=== PATIENT | female | born 1980 | race Caucasian/White ===

== ENCOUNTER → 2018-01-05 10:49 | Outpatient (CLI) | payer OTHER, SELFPAY ==
[2018-01-05 12:33] LABS: Absolute Lymphocyte Count 1.73 X10^3/ul (0.83-4.51); Basophil# 0.01 X10^3/uL; Basophil% 0.1 % (0-1); Eosinophil# 0.31 X10^3/uL; Eosinophils% 4.1 % (0-5); Hematocrit 44.1 % (37-47); Hemoglobin 15.6 g/dl (12.0-15.0); Lymphocyte # 1.73 X10^3/ul (4.0); Lymphocyte % 22.6 % (19-41); Mean Corp Hgb Conc 35.4 g/gl (32-36); Mean Corpuscular Hgb 34.7 pg (27.0-32.0); Mean Platelet Vol. 10.2 fl (6.2-12.0); Monocyte# 0.62 X10^3/uL; Monocyte% 8.1 % (0-10); Neutrophil # 4.95 X10^3/uL (2.7-7.7); Neutrophil % 64.8 % (47-70); Platelet Count 278 K/mm3 (150-450); RBC Distribution Width CV 12.7 % (11.6-14.6); RBC Distribution Width SD 46.3 fl (35.1-43.9); White Blood Count 7.6 K/mm3 (4.4-11.0)
[2018-01-05 12:40] LABS: POSITIVE COUNT NO; POSITIVE DIFFERENTIAL NO; POSITIVE MORPHOLOGY NO
[2018-01-05 12:47] LABS: ALB/GLOB Ratio 1.1 RATIO (0.9-2.4); AST(SGOT) 13 U/L (15-37); Alanine Aminotransfer ALT/SGPT 17 U/L (13-56); Albumin, Serum 3.7 g/dL (3.2-5.0); Alkaline Phosphatase 76 U/L (45-117); Anion Gap 4 (5-15); BUN 10 mg/dL (7-18); BUN/Creat Ratio 14.1 RATIO (10-20); Calcium,Total 8.8 mg/dL (8.5-10.1); Chloride 107 mmol/L (98-107); Creatinine, Serum 0.71 mg/dL (0.55-1.02); EST Glomerular Filtration Rate 97 mL/min (>60); Est Glom Filt Rate - Afr Amer 118 mL/min (>60); Globulin 3.5 g/dL (2.2-4.2); Glucose 80 mg/dL (74-106); Potassium 4.5 mmol/L (3.5-5.1); Protein, Total 7.2 g/dL (6.4-8.2); Sodium Level 137 mmol/L (136-145)
== END ==
LOC: MTLAB 10:51
PROVIDERS: Family Provider Internal Medicine; PCP Internal Medicine; Visit Provider Internal Medicine
DX: R10.9 Unspecified abdominal pain (principal)
CPT/HCPCS: 80053; 85025

== ENCOUNTER → 2018-01-25 09:23 | Outpatient (CLI) | payer OTHER, SELFPAY ==
--- NOTE | 2018-01-25 09:29 | RAD_ITS ---
STUDY: X-RAY - LEFT HAND REASON FOR EXAM: Bilateral hand pain. TECHNIQUE: 3 view(s) of the hand. COMPARISON: None. FINDINGS: Normal radiocarpal articulation. Normal distal radioulnar joint. There is a small cyst in the distal pole of the scaphoid. Normal carpal articulations Normal carpometacarpal articulation of the thumb. Normal second through fifth carpometacarpal joints. Normal metacarpi. Normal metacarpophalangeal joint of the thumb. Normal interphalangeal joint of the thumb. Normal proximal and distal phalanges of the thumb. Normal metacarpophalangeal joints of the second through fifth fingers. Normal proximal and distal interphalangeal joints of the second through fifth fingers. There is mild deformity of the ungual tuft of the fourth digit suggestive of remote injury. The soft tissue structures are unremarkable. RAD/Hand Min 3 Views IMPRESSION: Remote injury of the ungual tuft of the fourth digit. Small cyst in the scaphoid. Electronically Signed: Shay Martínez MD at 15:58 EDT Tel , Service support ,
--- NOTE | 2018-01-25 09:31 | RAD_ITS ---
STUDY: X-RAY - RIGHT HAND REASON FOR EXAM: Bilateral hand pain. TECHNIQUE: 3 view(s) of the hand. COMPARISON: None. FINDINGS: Normal radiocarpal articulation. Normal distal radioulnar joint. Normal visualized carpal bones. Normal carpal articulations Normal carpometacarpal articulation of the thumb. Normal second through fifth carpometacarpal joints. Normal metacarpi. Normal metacarpophalangeal joint of the thumb. Normal interphalangeal joint of the thumb. Normal proximal and distal phalanges of the thumb. Normal metacarpophalangeal joints of the second through fifth fingers. Normal proximal and distal interphalangeal joints of the second through fifth fingers. Normal phalanges of the second through fifth fingers. The soft tissue structures are unremarkable. RAD/Hand Min 3 Views IMPRESSION: Normal x-ray examination of the right hand. Electronically Signed: Shay Martínez MD at 15:58 EDT Tel , Service support ,
== END ==
LOC: HPRAD 09:27
PROVIDERS: Family Provider Internal Medicine; PCP Internal Medicine; Visit Provider Orthopaedic Surgery
DX: G56.03 Carpal tunnel syndrome, bilateral upper limbs (principal)
CPT/HCPCS: 73130

== ENCOUNTER 2018-02-07 12:30 | Outpatient (RCR) | payer OTHER, SELFPAY ==
--- NOTE | 2018-01-10 10:56 | HP.PTEVAL_ITS ---
Patient's Visit Information AIDA LEWIS is a 37 year old F referred to Physical Therapy by Michelle Mcghee MD with a diagnosis of RC disorder. Date of Evaluation: 01/10/18 Physical Therapist: Kaylah Menjivar - Visit Plan Frequency: 2x /Week Duration: 6 Weeks Plan: 2X/ week for 4 weeks for L shld AROM, PROM, RC and scapular strength, postural exercises with HEP and modalities PRN - Subjective Subjective: Pt reports that she has had pain in L shoulder for several years now (approx 3 years). No specific injury. It hurts to lift it up into abd motion. It hurts to lay on L shoulder. Pt is R handed. It hurts more with movement. No pain with just sitting. Pt went to [facility] who is her PCP. No x- rays or MRI at this point. No injections. She does a lot of sitting and typing at work. 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 Pt wylie have carpal tunnel and has a lot of N&T from that but no neck pain. She points to it hurting more on the lateral side of her shoulder. Lot of cracking and popping she hears. 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 Posture: R shoulder flexion 165 degrees, 155 abd, T6, WFL. L shoulder flexion 125 degrees, 105 abd, T12, WFL. c-spine AROM: flex 100%, Ext 75%, Rot B 100%, SB B 100%. UE MMT: R shld flex 4+/5 and L 4-/5, R shoulder abd 4+/5 and L 3+/5, R shld ER 4/5 and L 4-/5, R shld IR 4/5 and L 3+/5. PROM L shld: painful end feel on the L into abd and flexion. Pain at end range motion with IR and ER on the L. No real tenderness to palpation. Posture: sits with rounded shoulders and increasedround of thoracic spine. +HK on the L. -Empty can L - Goals Goal 1:: I HEP Goal Time Frame: 4-6 Weeks Goal 2:: Be able to lay on L shoulder without having pain Goal Time Frame: 4-6 Weeks Goal 3:: Increase L shoulder AROM to equal that of the R shoulder: (R shoulder flexion 165 degrees, 155 abd, T6, WFL and L shoulder flexion 125 degrees, 105 abd, T12, WFL) Goal Time Frame: 4-6 Weeks Goal 4:: Increase L shld strength to 4/5 all planes Goal Time Frame: 4-6 Weeks - Rehabilitation Potential Rehabilitation Potential: Good - Anticipated Interventions Patient/Client Instruction: Educate patient on: Condition, Plan of Care For the Purpose of:: To decrease pain, To decrease swelling/inflammation, To increase ROM, To improve nutrient delivery to tissue, To improve muscle performance and motor function, To improve ability to perform ADL's, To increase tolerance to activity/condition/position, To improve performance and independence with ADL's, To improve health of tissue, To increase flexibility/ ROM Therapeutic Exercise to Include: Strength training, Postural training, Flexibilty training, Passive ROM, Active ROM, Scapular Strength/Stabilization For the Purpose of:: To decrease pain, To increase ROM, To improve nutrient delivery to tissue, To improve muscle performance and motor function, To improve ability to perform ADL's, To increase tolerance to activity/condition/ position, To increase flexibility/ROM Manual Therapy Techniques to Include: Passive ROM For the Purpose of:: To increase flexibility/ROM IF ES: Yes Cryotherapy (ice pack, ice massage): Yes Ultrasound (thermal/non thermal): Yes For the Purpose of:: To decrease pain, To decrease swelling/inflammation, To increase ROM, To improve nutrient delivery to tissue Thank you for the opportunity to evaluate your patient. For Medicare and Medicare HMO plans, please review the plan of care and approve it. It will need to be FAXED BACK to us at [phone] for Medicare purposes. Please let me know if there are questions or concerns regarding this plan of care. Physician Signature: Date:
--- NOTE | 2018-02-07 13:01 | HP.PTDCSUM_ITS ---
HP - PT D/C Summary It has been my pleasure to treat AIDA LEWIS under orders from Michelle Mcghee MD, for the diagnosis of RC disorder for a total of 6 visit(s). Discharge Date: 02/07/18 Please see the following information for a summary of their discharge status. - Subjective Subjective: Pt reports that if she lifts her arm the wrong way then it hurts. She does that 1-2X/ day. She has been doing her exercises and will continue to do them at home. - Pain L shoulder Pain Intensity (Out of 10): 0 - Overall Improvement % Improvement: 75 - Objective Objective/Function: L SHLD AROM: L shoulder flexion 168, 158 abd, T8, ER is WFL ). L Shld MMT: flexion 4/5, abd 4/5, ER 4-/5, and IR 4/5 - Goals Goal 1:: I HEP Goal Progress: Goal Met Goal 2:: Be able to lay on L shoulder without having pain Goal Progress: Progressing Goal 3:: Increase L shoulder AROM to equal that of the R shoulder: (R shoulder flexion 165 degrees, 155 abd, T6, WFL and L shoulder flexion 125 degrees, 105 abd, T12, WFL) Goal Progress: Goal Met Goal 4:: Increase L shld strength to 4/5 all planes Goal Progress: Progressing - Plan Plan: DC PT to HEP. - D/C Information Discharge Comments: DC PT to HEP If there are questions or concerns regarding this patient's physical therapy, please feel free to call me at [phone]. Thank you for the referral of this patient. Sincerely, aKylah Menjivar
== END 2018-02-07 18:24 | disposition home or self-care (01) ==
LOC: PT 12:30
PROVIDERS: Family Provider Internal Medicine; PCP Internal Medicine; Visit Provider Internal Medicine
DX: M67.919 Unspecified disorder of synovium and tendon, unspecified shoulder (principal)
CPT/HCPCS: 97110; 97140; 97161; 97530

== ENCOUNTER → 2018-05-15 06:55 | Outpatient (CLI) | payer OTHER, SELFPAY ==
--- NOTE | 2018-05-15 13:17 | NEURO ---
NCS and/or EMG Patient Report Ordering Doctor: Debbi Chambers DATE OF SERVICE: 05/15/18 This is a bilateral upper extremity nerve conduction study and a right upper extremity EMG performed on this 38-year-old female with a history of pain and paresthesias in both hands worse on the right side affecting the first 4 digits of both hands. The patient is otherwise healthy. Previously approximately 3 months ago she did undergo corticosteroid injections of the carpal tunnel which she says has temporarily helped but feels that the symptoms are worsening again. Bilateral upper extremity sensory and motor nerve conduction studies are performed. The median motor and sensory distal latencies are moderately prolonged symmetrically. There is decreased amplitude of the motor amplitudes more so on the left side, and mild to moderate reduction of conduction velocities more so on the left side. The median F-wave latencies are mild to moderately prolonged bilaterally more so on the right side. Right upper extremity needle electromyography is performed. Muscles evaluated included the first dorsal interosseous, abductor pollicis brevis, brachioradialis, biceps, triceps and deltoid muscles. The abductor pollicis brevis muscle did demonstrate early recruitment with large motor units but pathologic spontaneous activity was absent. All other muscles demonstrated normal insertional activity with absence of pathologic spontaneous activity, and normal motor unit recruitment pattern as well as amplitude. Impression: Abnormal electrophysiologic study of the bilateral upper extremities consistent with moderate bilateral carpal tunnel syndrome relatively symmetric.
== END ==
PROVIDERS: Family Provider Internal Medicine; PCP Internal Medicine; Referring Provider Orthopaedic Surgery; Visit Provider Orthopaedic Surgery
DX: G56.03 Carpal tunnel syndrome, bilateral upper limbs (principal)
CPT/HCPCS: 95886; 95911

== ENCOUNTER → 2020-02-20 15:00 | Outpatient (CLI) | payer OTHER, SELFPAY ==
[2020-02-20 14:37] VITALS: BMI 29.7
[2020-02-20 17:03] LABS: Absolute Lymphocyte Count 2.45 X10^3/uL (0.83-4.51); Absolute Neutrophil Count 5.6 X10^3/uL (2.0-7.7); Basophil# 0.01 X10^3/uL; Basophil% 0.1 % (0-1); Eosinophil# 0.14 X10^3/uL; Eosinophils% 1.6 % (0-5); Hemoglobin 14.5 g/dL (12.0-15.0); Lymphocyte # 2.45 X10^3/ul (4.0); Lymphocyte % 27.9 % (19-41); Mean Corpuscular Hgb 34.7 pg (27.0-32.0); Mean Corpuscular Volume 105.3 fL (81-99); Mean Platelet Vol. 9.9 fl (6.2-12.0); Monocyte# 0.58 X10^3/uL; Monocyte% 6.6 % (0-10); NRBC Flagged by Analyzer 0 % (0-5); Neutrophil # 5.58 X10^3/uL (2.7-7.7); Neutrophil % 63.6 % (47-70); Platelet Count 285 K/mm3 (150-450); RBC Distribution Width CV 12.7 % (11.6-14.6); RBC Distribution Width SD 48.6 fl (35.1-43.9); Red Blood Count 4.18 M/mm3 (4.2-5.4); White Blood Count 8.8 K/mm3 (4.4-11.0)
[2020-02-20 17:24] LABS: ALB/GLOB Ratio 1.2 RATIO (0.9-2.4); AST(SGOT) 12 U/L (15-37); Alanine Aminotransfer ALT/SGPT 27 U/L (13-56); Albumin, Serum 3.9 g/dL (3.2-5.0); Alkaline Phosphatase 68 U/L (45-117); Anion Gap 7 (5-15); BUN 13 mg/dL (7-18); BUN/Creat Ratio 13.2 RATIO (10-20); Calcium,Total 8.8 mg/dL (8.5-10.1); Chloride 105 mmol/L (98-107); Cholesterol 238 mg/dL (200); Creatinine, Serum 0.99 mg/dL (0.55-1.02); EST Glomerular Filtration Rate 66 mL/min (>60); Est Glom Filt Rate - Afr Amer 80 mL/min (>60); Globulin 3.3 g/dL (2.2-4.2); Glucose 104 mg/dL (74-106); High Density Lipoprotein 67 mg/dL; Protein, Total 7.2 g/dL (6.4-8.2); Sodium Level 139 mmol/L (136-145); Triglycerides 132 mg/dL; Very Low Density Lipoprotein 26 mg/dL (5-40)
== END ==
LOC: BIMLAB 15:01
PROVIDERS: PCP Internal Medicine; Referring Provider Internal Medicine; Visit Provider Internal Medicine
DX: E78.5 Hyperlipidemia, unspecified (principal); K21.9 Gastro-esophageal reflux disease without esophagitis
CPT/HCPCS: 36415; 80053; 80061; 85025

== ENCOUNTER → 2020-05-04 11:50 | Outpatient (CLI) | payer OTHER, SELFPAY ==
[2020-02-20 14:37] VITALS: BMI 29.7
[2020-04-15 13:13] VITALS: BMI 29.7
--- NOTE | 2020-05-04 11:51 | BI_ITS ---
MAMMOGRAPHY - BILATERAL SCREENING REASON FOR EXAM: Female, 40 years old. Routine annual screening examination. PERTINENT HISTORY: Non-contributory. TECHNIQUE: Digital bilateral breast zulema (3D mammographic acquisition) in the CC and MLO projections. 2-D mediolateral oblique (MLO) and craniocaudad (CC) views of both breasts were obtained. CAD: Full Field Digital Mammography with Computer Added Detection was performed. COMPARISON: None. Baseline examination. FINDINGS: Breast Composition: There are scattered areas of fibroglandular density. There are no dominant masses or suspicious calcifications. No other significant abnormalities are identified. BI/SCREEN MAMM (CAD) W/ZULEMA BILAT IMPRESSION: Negative screening mammogram. Yearly followup mammogram recommended. (A) ASSESSMENT CATEGORY: BIRADS Category 1: Negative. A letter regarding these results will be sent to the patient by the facility within 30 days. Approximately 10% of breast cancers are not detected by mammography. A normal mammogram should not delay biopsy of a clinically suspicious abnormality. [id number] Electronically Signed: Arvind Moore, at 13:01 EDT , Service support ,
== END ==
PROVIDERS: PCP Internal Medicine; Referring Provider Internal Medicine; Visit Provider Internal Medicine
DX: Z12.31 Encounter for screening mammogram for malignant neoplasm of breast (principal)
CPT/HCPCS: 77063; 77067

== ENCOUNTER 2021-03-02 06:56 | Day surgery (SDC) | payer OTHER, SELFPAY ==
[2021-02-22 10:46] VITALS: BMI 29.7
--- NOTE | 2021-03-01 13:25 | PCM.HP.BLA ---
History and Physical Date of Admission: 03/02/21 Date of Service: 02/22/21 MR#:[id number]:[id number]: AIDA LEWIS [facility] #:[id number] Provider: KOBE Grace/Sex: 41/F [place] [place] Intake Vital Signs 02/22/21 10:46 BMI 29.7 Intake Visit Reasons: BILAT HANDS Allergies IV contrast Allergy (Severe, Uncoded 02/20/20 14:34) SOB narcotics Allergy (Severe, Uncoded 02/20/20 14:34) Vomiting [facility] Medical History (Updated 02/23/21 @ 15:57 by Gurmeet BULLOCK, KOBE) Asthma Carpal tunnel syndrome GERD (gastroesophageal reflux disease) Seasonal allergies Surgical History History of appendectomy History of hernia repair History of nasal septoplasty History of tonsillectomy Family History Father COPD (chronic obstructive pulmonary disease) Anxiety Asthma Mother Obesity Sister Asthma Diabetes Grandmother Hypertension Heart disease Grandfather Colon cancer Cancer prostate and lukemia Social History (Updated 10/27/20 @ 16:[address] Debbi Chambers, ) Smoking Status: Current every day smoker alcohol intake: current alcohol intake frequency: a few times a week Alcohol type: wine substance use type: does not use what type of physical activity do you participate in: other details: does yard work and house work HPI BILAT HANDS Surgical H&P: Yes Details: Parts of this documentation were recorded by a scribe, this documentation accurately reflects the service provided and the decisions made by me, KOBE Mays 02/22/21 1043. AIDA LEWIS is a 41 year old F here today for bilateral carpal tunnel. Patient had injections on 10/27/[address] Chambers which were helpful until the end of January. Patient notes that she has numbness and tingling. She has pain into her wrists and into her elbow. She has increased pain at night. She is able to shake her hand to get feeling. 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 Patient is not able to have surgery at this time. [place] [facility] [place] muscle weakness, Reports numbness and Reports tingling Skin/Breast Reports system reviewed and no additional complaints, except as documented Neuro Yes system reviewed and no additional complaints, except as documented, Yes numbness and Yes tingling Ortho Exam General General: Yes no acute distress Right Wrist/Hand Skin/Wound: No Swelling and No Ecchymosis Right Wrist: Yes Durken's Test, Tinel's and Phalen's; No Froment's Sensation: Radial: I, Ulnar: I and Median: D Left Wrist/Hand Skin/Wound: No Swelling, No Ecchymosis, Yes nail intact and Yes capillary refill normal Left Wrist: Yes Durken's Test, Yes Tinel's and Yes Phalen's; No Palpable Nodule, No Froment's and No tender to palpate carpometacarpal joint Sensation: Radial: I, Ulnar: I and Median: D Coding Level of Care Code Off vis,est,level 3 Diagnoses Bilateral carpal tunnel syndrome G56.03 Assessment and Plan Assessment and Plan (1) Bilateral carpal tunnel syndrome: Status: Acute Plan - KOBE Hoover: Patient presents to the office today with carpal tunnel syndrome. Patient has had carpal tunnel signs and symptoms for well over 3 years now. She has been receiving injections since 2018 and states she thinks she has had approximately 8 maybe 9 different injections. These helped her symptoms for approximately 2 to 3 months until she asked to have other ones. She has tried splints in the past as well as physical therapy. At this time we discussed that there is concern with multiple injections into the area due to the underlying flexor tendons and the possible damage these would occur. She states that she would like to have surgery but can take that much time off of work. 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 At this time patient states that if that is all she has to be off she really wants to have surgery as these have been bothering her for long time. Risks and benefits of the surgery were discussed with patient as well as the procedure itself. Questions were answered and consent was signed in office today. Patient was given antimicrobial soap to be used daily for 3 days prior and then the morning before her surgery. She will be contacted by our office surgery date as well as the surgery department for presurgery testing. She will notify our office with any questions or concerns in the meantime. This note was generated with [employer] dictation software. It may contain incorrect words, spelling, and punctuation that were not noted in checking the note before signing. 02/23/21 1559<Electronically signed by Gurmeet BULLOCK>Date Gurmeet BULLOCK I have re-examined the patient. There are no clinical changes since date of exam
[2021-03-02 07:20] LABS: Internal QC Validated? YES +Cl - CLEAR BKGD
[2021-03-02 07:21] LABS: Pregnancy, Urine Negative Negative
[2021-03-02 08:03] VITALS: BP 128/83; PULSE 72; RESP 14; TEMP 36.6; O2SAT 98; BMI 28.8
[2021-03-02] MEDS: Lactated Ringers 1,000 ML 100 ML IV (08:25)
[2021-03-02] MEDS: Cefazolin 2 GM in 0.9% Normal Saline 100 ML IV (08:34)
[2021-03-02] MEDS: Lidocaine 1% /Epi 1:100 (50ml) 50 ML VIAL (08:59)
--- NOTE | 2021-03-02 09:17 | PCM.OPRPT ---
Report of Operation Date of Procedure: 03/02/21 Description of Surgical Findings:: Preoperative diagnosis; left carpal tunnel syndrome Postoperative diagnosis; same Procedure: Left open carpal tunnel release Anesthesia: Local with MAC Tourniquet time; 12 minutes 250 mm Hg Complications: None Indication for procedure; This is a 41-year-old female with long-standing symptoms consistent with carpal tunnel syndrome the patient did have electrodiagnostic evidence of this and has failed conservative treatment. Risks benefits and alternatives were reviewed including risks of bleeding infection nerve artery tissue damage need for further surgery and continued pain and symptoms, hypersensitivity to scar and Pillar pain. Procedure; The patient was met in the preoperative holding area the operative extremity was identified by both patient and physician and was marked the patient was met by anesthesia and brought back to the operating room and transferred to the operating table in the supine position. Aanesthesia was started. A well-padded tourniquet was placed on the operative upper extremity. The patient was prepped and draped in the usual sterile fashion. A timeout was called to ensure the proper patient procedure and extremity were being contemplated. 0.5 percent Marcaine with epinephrine was injected into the incisional area. An Esmarch was used to exsanguinate the extremity. The tourniquet was inflated to 250 mmHg. A midline incision was made with a 15 blade scalpel between the thenar and hypothenar eminence. This was carried down through the skin and subcutaneous tissue. Jonh retractors were then used, a deep blade scalpel was used to make a deep incision in the palmar aponeurosis. The jonh retractors were then placed deep to this and the transverse carpal ligament was identified a perforation was made with a scalpel and a Littler scissors were used to complete the release of the transverse carpal ligament distally under direct visualization with the tips facing ulnarly until the perivascular fat was reached. Then turning our attention proximally using a tension slide technique the proximal extent of the transverse carpal ligament was released . There was noted to be hourglass configuration to the median nerve and hypertrophy of the transverse carpal ligament without other findings. The wound was thoroughly irrigated and was closed with 4-0 nylon vertical mattress stitches. Dressing was applied in the form of xeroform 4 x 4, web roll and an jer wrap. Tourniquet was let down there is no intraoperative complications patient tolerated the procedure well and was transferred to the PACU. All counts were correct.
--- NOTE | 2021-03-02 09:19 | DCINST_ITS ---
Discharge Instructions Dressing / Incision Call your doctor if you observe: Shortness of breath and Chest pain Additional Dressing/Incision Instructions:: Ice and elevate operative extremity next 72 hours. Keep dressing on clean and dry for 48 hours then may remove and allow warm soapy water to rinse over incision but do not submerge until sutures are out. Then apply bandaid over incision and change daily. encourage finger range of motion. Not lift more than 1/2 pound. Follow Up Care Please Follow Up With: Ford Villeda DO Test Results: Test results from this visit will be discussed in further detail a t your follow-up appointment, if applicable. Discharge Plan Admission Attending Provider: Ford Villeda Primary Care Provider: Michelle Mcghee Discharge Orders/Prescriptions Prescriptions: New oxycodone 5 mg tablet 5 - 10 mg PO Q6H PRN (Reason: pain) 7 Days Qty: 30 RF: 0 No Action alprazolam [Xanax] 0.25 mg tablet 0.25 mg PO BID-TID PRN (Reason: Anxiety) RF: 0 levonorgestrel [Mirena] 20 mcg/24 hr (5 years) intrauterine device 1 insert Intrauterine ONCE RF: 0 omeprazole 20 mg capsule,delayed release(DR/EC) 20 mg PO QDAY Qty: 90 RF: 3 Ventolin HFA 90 mcg/actuation HFA aerosol inhaler 2 puff INHALATION Q6H PRN (Reason: shortness of breath or wheezing) Qty: 6.7 RF: 1 atorvastatin 40 mg tablet 40 mg PO QDAY Qty: 90 RF: 3 Referrals / Follow Up: Michelle Mcghee MD [Primary Care Provider] - Disposition Disposition (needs filled in before D/C Order can be placed): Home, Self Care
[2021-03-02 09:22] VITALS: BP 118/71; BP 128/83; PULSE 93; RESP 18; TEMP 36.5; O2SAT 93
[2021-03-02 09:25] VITALS: BP 111/77; BP 128/83; PULSE 76; RESP 18; O2SAT 95
[2021-03-02 09:30] VITALS: BP 123/74; BP 128/83; PULSE 77; RESP 18; O2SAT 95
[2021-03-02 09:31] VITALS: BP 115/79; BP 128/83; PULSE 73; RESP 18; TEMP 36.1; O2SAT 95
[2021-03-02 10:11] VITALS: BP 128/83
== END 2021-03-02 10:12 ==
LOC: SDC 06:59 → AC 06:59
PROVIDERS: Anesthesiology; PCP Internal Medicine; Referring Provider Orthopaedic Surgery; Visit Provider Orthopaedic Surgery
PROC: (CPT 64721; principal; 2021-03-02 08:15)
DX: G56.02 Carpal tunnel syndrome, left upper limb (principal); K21.9 Gastro-esophageal reflux disease without esophagitis; J45.909 Unspecified asthma, uncomplicated; F17.200 Nicotine dependence, unspecified, uncomplicated
CPT/HCPCS: 01810; 64721; 81025; J7120; J2405

== ENCOUNTER 2021-06-29 09:06 | Day surgery (SDC) | payer OTHER, SELFPAY ==
[2021-06-29] VITALS (7 sets, daily range): BP systolic 80–127; BP diastolic 64–88; PULSE 67–77; RESP 14–16; TEMP 36.1–36.2; O2SAT 95–100; BMI 29.0
[2021-06-29 09:38] LABS: Internal QC Validated? YES +Cl - CLEAR BKGD; Pregnancy, Urine Negative Negative
[2021-06-29] MEDS: Cefazolin 2 GM in 0.9% Normal Saline 100 ML IV (10:18)
[2021-06-29] MEDS: Lidocaine 1% /Epi 1:100 (20ml) 20 ML Vial (10:36)
--- NOTE | 2021-06-29 10:50 | PCM.HP.BLA ---
History and Physical Date of Admission: 06/29/21 Date of Service: 06/09/21 MR#:[id number]: AIDA LEWISRep #:[id number]:1980 Provider:Dr. Ford Villeda DOAge/Sex: 41/F Location:[facility]:Signed Intake Intake Visit Reasons: RIGHT WRIST Allergies IV contrast Allergy (Severe, Uncoded 04/13/21 08:52) SOB narcotics Adverse Reaction (Severe, Uncoded 04/13/21 08:52) Vomiting PFSH Medical History Alcohol use Anxiety Asthma Carpal tunnel syndrome Gastric reflux GERD (gastroesophageal reflux disease) High cholesterol History of COVID-19 History of echocardiogram History of hiatal hernia History of irregular heartbeat History of stress test Migraine headache Seasonal allergies Smoker Surgical History (Updated 04/13/21 @ 08:59 by Linda Stephens) History of appendectomy History of carpal tunnel surgery of left wrist History of hernia repair History of nasal septoplasty History of tonsillectomy Family History Father COPD (chronic obstructive pulmonary disease) Anxiety Asthma Mother Obesity Sister Asthma Diabetes Grandmother Hypertension Heart disease Grandfather Colon cancer Cancer prostate and lukemia Social History (Updated 10/27/20 @ 16:[address] Debbi Chambers DO) Smoking Status: Current every day smoker tobacco type: cigarettes alcohol intake: current alcohol intake frequency: a few times a week Alcohol type: wine substance use type: does not use what type of physical activity do you participate in: other details: does yard work and house work HPI RIGHT WRIST Details: Parts of this documentation were recorded by a scribe, this documentation accurately reflects the service provided and the decisions made by me, Dr. Ford Villeda DO 06/09/21 0818. AIDA LEWIS is a 41 year old F here today for right wrist carpal tunnel syndrome. She wishes to discuss rescheduling her right carpal tunnel release. She continues to have numbness and tingling and pain of the 1st through 4th fingers. She states that most of her symptoms are in the 3rd finger and half of the 2nd and 4th fingers. SH ehas been using a wrist brace for over 2 years and she has had multiple carpal tunnel injection on the right wrist. She did have an EMG of the right arm about 3-4 years ago. 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 She has a lymphosis over the left anterior chest wall, and she has swelling of the abdomen. She just had testing and it is determined that she has some lymphatic leaking and possible blockages. She sees Dr. Carter at [facility] and he is an interventional radiologist. Ortho Exam General General: Yes no acute distress Neurologic: Yes alert Psychologic: Yes reasonable and appropriate Right Wrist/Hand Skin/Wound: Yes CDI, No Swelling and No Ecchymosis Right Wrist: Yes Durken's Test and Phalen's; No Tinel's WRIST: no atrophy, good wrist range of motion Left Wrist/Hand Skin/Wound: Yes healing, No Swelling, No Ecchymosis and No erythema Supplemental Info 05/15/2018 EMG b/l upper ext: Abnormal electrophysiologic study of the bilateral upper extremities consistent with moderate bilateral carpal tunnel syndrome relatively symmetric. Coding Level of Care Code Off vis,est,level 3 Diagnoses Right carpal tunnel syndrome G56.01 Assessment and Plan Assessment and Plan (1) Right carpal tunnel syndrome: Status: Acute Plan - Dr. Ford Villeda, DO: Educated that she would bennifit from carpal tunnel release. Reviewed the pre-operative plans with the patient. Risks and benefits of the procedure were fully explained, including but not limited to infection, neurovascular injury, continued pain, arthritis, stiffness, need for further surgery, re-injury, DVT, PE, general risks of anesthesia, and loss of limb or life. The patient understands all the risks and does wish to proceed with written consent for right carpal tunnel release. Patient wishes to proceed with surgery LUCIO. Educated that she will need to keep her incision clean and dry with a dressing in place for 2 weeks post op. Recommended consult with a DO to have lymphatic treatments for her lymphatic disorder. Follow up 2 weeks post op or sooner if pain, swelling, numbness or associated symptoms, or concerns develop. All questions answered. Patient in agreement of plan. 06/09/21 1203<Electronically signed by Ford Villeda DO>Date Ford Vega Signature:Date I have re-examined the patient. There are no clinical changes since date of exam
--- NOTE | 2021-06-29 10:50 | PCM.OPRPT ---
Report of Operation Date of Procedure: 06/29/21 Description of Surgical Findings:: Preoperative diagnosis; right carpal tunnel syndrome Postoperative diagnosis; same Procedure: Right open carpal tunnel release Anesthesia: Local with MAC Tourniquet time; 11 minutes 250 mm Hg Complications: None Indication for procedure; This is a 41-year-old female with long-standing symptoms consistent with carpal tunnel syndrome the patient did have electrodiagnostic evidence of this and has failed conservative treatment. Risks benefits and alternatives were reviewed including risks of bleeding infection nerve artery tissue damage need for further surgery and continued pain and symptoms, hypersensitivity to scar and Pillar pain. Procedure; The patient was met in the preoperative holding area the operative extremity was identified by both patient and physician and was marked the patient was met by anesthesia and brought back to the operating room and transferred to the operating table in the supine position. Aanesthesia was started. A well-padded tourniquet was placed on the operative upper extremity. The patient was prepped and draped in the usual sterile fashion. A timeout was called to ensure the proper patient procedure and extremity were being contemplated. 0.5 percent Marcaine with epinephrine was injected into the incisional area. An Esmarch was used to exsanguinate the extremity. The tourniquet was inflated to 250 mmHg. A midline incision was made with a 15 blade scalpel between the thenar and hypothenar eminence. This was carried down through the skin and subcutaneous tissue. Jonh retractors were then used, a deep blade scalpel was used to make a deep incision in the palmar aponeurosis. The jonh retractors were then placed deep to this and the transverse carpal ligament was identified a perforation was made with a scalpel and a Littler scissors were used to complete the release of the transverse carpal ligament distally under direct visualization with the tips facing ulnarly until the perivascular fat was reached. Then turning our attention proximally using a tension slide technique the proximal extent of the transverse carpal ligament was released . There was noted to be hourglass configuration to the median nerve and hypertrophy of the transverse carpal ligament without other findings. The wound was thoroughly irrigated and was closed with 4-0 nylon vertical mattress stitches. Dressing was applied in the form of xeroform 4 x 4, web roll and an jer wrap. Tourniquet was let down there is no intraoperative complications patient tolerated the procedure well and was transferred to the PACU. All counts were correct.
--- NOTE | 2021-06-29 10:52 | PCM.DC ---
Discharge Instructions Dressing / Incision Additional Dressing/Incision Instructions:: Ice and elevate operative extremity next 72 hours. Keep dressing on clean and dry for 48 hours then may remove and allow warm soapy water to rinse over incision but do not submerge until sutures are out. Then apply bandaid over incision and change daily. encourage finger range of motion. Not lift more than 1/2 pound. Minimize narcotic use only as needed and directed, may use OTC NSAID and Tylenol to supplement/substitute for pain control. Follow Up Care Please Follow Up With: Ford Villeda DO When: 2 weeks Test Results: Test results from this visit will be discussed in further detail at your follow-up appointment, if applicable. Discharge Plan Admission Attending Provider: Ford Villeda Primary Care Provider: Michelle Mcghee Discharge Orders/Prescriptions Prescriptions: New ibuprofen 600 mg tablet 600 mg PO TID Qty: 40 RF: 0 No Action alprazolam [Xanax] 0.25 mg tablet 0.25 mg PO BID-TID PRN (Reason: Anxiety) RF: 0 levonorgestrel [Mirena] 20 mcg/24 hr (5 years) intrauterine device 1 insert Intrauterine ONCE RF: 0 atorvastatin 40 mg tablet 40 mg PO QDAY RF: 0 omeprazole 20 mg capsule,delayed release(DR/EC) 20 mg PO QDAY RF: 0 Ventolin HFA 90 mcg/actuation HFA aerosol inhaler 2 puff INHALATION Q6H PRN (Reason: shortness of breath or wheezing) Qty: 6.7 RF: 1 Referrals / Follow Up: Michelle Mcghee MD [Primary Care Provider] - Disposition Disposition (needs filled in before D/C Order can be placed): Home, Self Care
== END 2021-06-29 12:08 | disposition home or self-care (01) ==
LOC: SDC 09:08 → AC 09:09
PROVIDERS: Anesthesiology; PCP Internal Medicine; Visit Provider Orthopaedic Surgery
PROC: (CPT 64721; principal; 2021-06-29 10:30)
DX: G56.01 Carpal tunnel syndrome, right upper limb (principal); E11.9 Type 2 diabetes mellitus without complications; E78.00 Pure hypercholesterolemia, unspecified; I10 Essential (primary) hypertension; J44.9 Chronic obstructive pulmonary disease, unspecified; K21.9 Gastro-esophageal reflux disease without esophagitis; F17.210 Nicotine dependence, cigarettes, uncomplicated; Z86.16 Personal history of COVID-19; Z85.038 Personal history of other malignant neoplasm of large intestine; Z88.5 Allergy status to narcotic agent; Z88.8 Allergy status to other drugs, medicaments and biological substances; Z90.49 Acquired absence of other specified parts of digestive tract
CPT/HCPCS: 01810; 64721; 81025; J7120; J2405

== ENCOUNTER 2021-09-14 12:16 | Emergency (ER) | payer OTHER, SELFPAY ==
[2021-09-14 12:17] VITALS: BP 136/94; PULSE 87; RESP 18; TEMP 35.7; O2SAT 100; BMI 28.3
[2021-09-14 12:19] VITALS: BP 136/94; PULSE 87; RESP 18; TEMP 35.7; O2SAT 100
[2021-09-14 14:54] LABS: Absolute Lymphocyte Count 2.14 X10^3/uL (0.83-4.51); Absolute Neutrophil Count 4.4 X10^3/uL (2.0-7.7); Basophil# 0.01 X10^3/uL; Basophil% 0.1 % (0-1); Eosinophil# 0.24 X10^3/uL; Eosinophils% 3.3 % (0-5); Hematocrit 49.5 % (37-47); Hemoglobin 17.1 g/dL (12.0-15.0); Lymphocyte # 2.14 X10^3/ul (0.83-4.51); Lymphocyte % 29.3 % (19-41); Mean Corp Hgb Conc 34.5 g/dL (32-36); Mean Corpuscular Volume 101.4 fL (81-99); Mean Platelet Vol. 9.4 fl (6.2-12.0); Monocyte# 0.48 X10^3/uL; Monocyte% 6.6 % (0-10); NRBC Flagged by Analyzer 0 % (0-5); Neutrophil # 4.41 X10^3/uL (2.7-7.7); Neutrophil % 60.3 % (47-70); Platelet Count 307 K/mm3 (150-450); RBC Distribution Width CV 12.5 % (11.6-14.6); RBC Distribution Width SD 47.3 fl (35.1-43.9); Red Blood Count 4.88 M/mm3 (4.2-5.4); White Blood Count 7.3 K/mm3 (4.4-11.0)
[2021-09-14 15:01] LABS: Internal QC Validated? YES +Cl - CLEAR BKGD; Pregnancy, Serum, hCG Quali. NEGATIVE Negative
[2021-09-14] MEDS: Ketorolac 15 MG/ML Vial IV (15:02)
[2021-09-14] MEDS: Dicyclomine 10 MG Capsule 20 MG PO (15:02)
[2021-09-14] MEDS: 0.9% Normal Saline 1,000 ML 1000 ML IV (15:02)
[2021-09-14] MEDS: Ondansetron 4 MG/2 ML Vial IV (15:02)
[2021-09-14] MEDS: fentaNYL 100 MCG/2 ML Ampul 50 MCG IV (15:03)
[2021-09-14 15:05] VITALS: BP 122/85; PULSE 69; RESP 16; O2SAT 98
[2021-09-14 15:10] LABS: ALB/GLOB Ratio 1.1 RATIO (0.9-2.4); AST(SGOT) 14 U/L (15-37); Alanine Aminotransfer ALT/SGPT 27 U/L (13-56); Albumin, Serum 3.9 g/dL (3.2-5.0); Alkaline Phosphatase 83 U/L (45-117); Anion Gap 3 (5-15); BUN 14 mg/dL (7-18); BUN/Creat Ratio 21.5 RATIO (10-20); Chloride 107 mmol/L (98-107); Creatinine, Serum 0.65 mg/dL (0.55-1.02); EST Glomerular Filtration Rate 106 mL/min (>60); Est Glom Filt Rate - Afr Amer 128 mL/min (>60); Estimated Creatinine Clearance 93.27 ml/min; Globulin 3.6 g/dL (2.2-4.2); Glucose 95 mg/dL (74-106); Lipase 57 U/L (73-393); Potassium 4.1 mmol/L (3.5-5.1); Protein, Total 7.5 g/dL (6.4-8.2); Sodium Level 137 mmol/L (136-145)
--- NOTE | 2021-09-14 15:38 | EDS_ITS ---
HPI HPI - GI History of Present Illness Chief Complaint: Abd Pain Informant: patient Narrative Narrative: Patient is a 41 year old female with history of intermittent abdominal pain thought to be secondary to abnormal lymph node drainage pr esenting with worsening abdominal pain. Patient states she had worsening swelling of her left supraclavicular area and abdominal distention and pain. It is diffuse and radiates to her bilateral flanks. She notes it hurts to take a deep breath because of the pressure in her stomach. She follows with the [facility]. She has been taking Motrin with severally for the pain is not had any today. She has been having flareups every 2 weeks for the past month but before that had not had any problems since June. Patient states this feels like her normal pain just more severe and now she cannot sleep. She denies associated nausea or vomiting. She had normal bowel movements. Denies any difficulty breathing or chest pain. No fever or chills. No other complaints at this time. PFSH PFSH Medical History Alcohol use Anxiety Asthma Carpal tunnel syndrome Gastric reflux GERD (gastroesophageal reflux disease) High cholesterol History of COVID-19 History of echocardiogram History of hiatal hernia History of irregular heartbeat History of stress test Migraine headache Seasonal allergies Smoker Home Medications alprazolam 0.25 mg tablet 0.25 mg PO BID-TID PRN 01/02/18 [History Last Taken 03/02/21 06:30 0.25 MG] levonorgestrel 20 mcg/24 hours (7 yrs) 52 mg intrauterine device 1 insert INTRAUTERINE ONCE 01/02/18 [History Last Taken Unknown] ibuprofen 600 mg PO TID #40 tab 06/29/21 [Rx Last Taken Unknown] atorvastatin 40 mg tablet 40 mg PO QDAY #90 tab 07/19/21 [Rx Last Taken Unknown] fluticasone propionate 50 mcg/actuation nasal spray,suspension 1 spray INTRANASAL DAILY #16 g 07/19/21 [Rx Last Taken Unknown] omeprazole 20 mg capsule,delayed release 20 mg PO QDAY #90 cap 07/19/21 [Rx Last Taken Unknown] albuterol sulfate 90 mcg/actuation aerosol inhaler 2 puff INHALATION Q6H PRN #8.5 g 07/22/21 [Rx Last Taken Unknown] dicyclomine 20 mg PO TID PRN #20 tab 09/14/21 [Rx Last Taken Unknown] Allergy/AdvReac Type Severity Reaction Status Date / Time IV contrast Allergy Severe SOB Uncoded 09/14/21 12:19 narcotics AdvReac Severe Vomiting Uncoded 09/14/21 12:19 Family History Father COPD (chronic obstructive pulmonary disease) Anxiety Asthma Mother Obesity Sister Asthma Diabetes Grandmother Hypertension Heart disease Grandfather Colon cancer Cancer prostate and lukemia Surgical History History of appendectomy History of carpal tunnel surgery of left wrist History of nasal septoplasty History of tonsillectomy Hx of inguinal hernia repair Social History Smoking Status: Current every day smoker tobacco type: cigarettes alcohol intake: current alcohol intake frequency: holidays/special occasions only Alcohol type: wine substance use type: does not use eating out: other details: twice a month what type of physical activity do you participate in: other details: does yard work and house work ROS ROS ED Constitutional Constitutional ED: Denies chills or fever(s) ENT ENT ED: Denies rhinorrhea Cardiovascular Cardiovascular: Denies chest pain or palpitations Respiratory/Chest Respiratory/Chest: Denies cough or dyspnea Gastrointestinal Gastrointestinal: Reports abdominal pain; Denies constipation, diarrhea, nausea or vomiting Genitourinary Genitourinary ED: Denies dysuria or hematuria Musculoskeletal Musculoskeletal: Reports back pain; Denies arthralgias or myalgias Integumentary Denies rash Neurologic Neurologic: Denies headache(s) or weakness Psychiatric Psychiatric: Denies depression EXAM Physical Exam Const Vital Signs: 09/14/21 12:17 09/14/21 12:19 09/14/21 15:05 Temperature 96.2 F L 96.2 F L Temperature Source Temporal Temporal Pulse Rate 87 87 69 Respiratory Rate 18 18 16 Blood Pressure 136/94 H 136/94 H 122/85 H Blood Pressure Mean 108 108 97 Pulse Ox 100 100 98 Oxygen Delivery Method Room Air Room Air Room Air Positive well nourished and well developed Constitutional Narrative: Patient sitting in the bed rocking back and forth General Appearance ED: well developed HEENT Reports moist mucous membranes normocephalic and atraumatic Eyes PERRL and EOMs intact bilaterally Neck supple Neck Narrative: Left-sided supraclavicular lymphadenopathy present Lymph Lymphatic: Negative for lymphedema Resp normal respiratory effort and clear to auscultation bilaterally Cardio regular rate, regular rhythm and no murmurs GI non-distended GI Narrative: No abdominal wall edema appreciated Inspection: Negative for abdominal distention Auscultation: normoactive bowel sounds Palpation: soft and tender other (Diffuse); Negative for guarding or rigid Back/Spine no CVA tenderness Extremity full ROM General Extremety ED: Negative for edema or tenderness General Extremity: Negative for edema Neuro no sensory deficits noted Sensorium / Orientation: alert, oriented to person, oriented to place and oriented to time Motor Exam: Negative for general weakness Psych mental status grossly normal and thought process normal Mood & Affect: anxious Skin General Skin Exam: Negative for jaundice Lesions: no lesions Rashes: no rashes MDM MDM MDM Narrative Medical decision making narrative: Patient is evaluated for worsening abdominal pain. It seems to be correlated with lymph drainage dysfunction for the patient. She appears nontoxic but uncomfortable. She is hemodynamically stable. Patient has diffuse abdominal pain that is nonspecific on exam. She does not have any peritoneal signs. Work-up including CBC, lactate, CMP and urine are obtained which are grossly unremarkable. Patient is given IV fluids, Zofran, fentanyl, Toradol and Bentyl. On reevaluation she feels much better. Patient does not want any opioids because a cause such severe nausea and vomiting. Patient will be discharged home with prescription for Bentyl. She will continue take NSAIDs. She will follow-up with her PCP. She is counseled return precautions. As her symptoms have improved and this is an acute on chronic issue I do not think repeat imaging is indicated. Lab Data Attestation: I reviewed the patient's lab results. Labs: Laboratory Results - last 24 hr 09/14/21 09/14/21 09/14/21 14:10 14:10 14:40 WBC 7.3 RBC 4.88 Hgb 17.1 H Hct 49.5 H MCV 101.4 H MCH 35.0 H MCHC 34.5 RDW Std Deviation 47.3 H RDW Coeff of Miguel Angel 12.5 Plt Count 307 MPV 9.4 Immature Gran % (Auto) 0.400 Neut % (Auto) 60.3 Lymph % (Auto) 29.3 Ellis % (Auto) 6.6 Eos % (Auto) 3.3 Baso % (Auto) 0.1 Absolute Neuts (auto) 4.4 Absolute Lymphs (auto) 2.14 Nucleated RBC % 0 Sodium 137 Potassium 4.1 Chloride 107 Carbon Dioxide 27.0 Anion Gap 3 L BUN 14 Creatinine 0.65 Estim Creat Clear Calc 93.27 Est GFR (MDRD) Af Amer 128 Est GFR (MDRD) Non-Af 106 BUN/Creatinine Ratio 21.5 H Glucose 95 Calcium 9.0 Total Bilirubin 0.40 AST 14 L ALT 27 Alkaline Phosphatase 83 Total Protein 7.5 Albumin 3.9 Globulin 3.6 Albumin/Globulin Ratio 1.1 Lipase 57 L Serum , Qual NEGATIVE Discharge Plan Triage Chief Complaint: Abd Pain ED Provider: Yany Babb Dx/Rx/DC Orders Clinical Impression: Abdominal pain Instructions: ED Abdominal Pain Unkn Cause Fem Prescriptions: New dicyclomine 20 mg tablet 20 mg PO TID PRN (Reason: abdominal discomfort) Qty: 20 RF: 0 No Action alprazolam [Xanax] 0.25 mg tablet 0.25 mg PO BID-TID PRN (Reason: Anxiety) RF: 0 levonorgestrel [Mirena] 20 mcg/24 hr (5 years) intrauterine device 1 insert Intrauterine ONCE RF: 0 omeprazole 20 mg capsule,delayed release(DR/EC) 20 mg PO QDAY Qty: 90 RF: 0 atorvastatin 40 mg tablet 40 mg PO QDAY Qty: 90 RF: 0 fluticasone propionate [Flonase Allergy Relief] 50 mcg/actuation spray,suspension 1 spray intranasal DAILY Qty: 16 RF: 0 ibuprofen 600 mg tablet 600 mg PO TID Qty: 40 RF: 0 albuterol sulfate 90 mcg/actuation HFA aerosol inhaler 2 puff inhalation Q6H PRN (Reason: shortness of breath or wheezing) Qty: 8.5 RF: 2 Primary Care Provider: Michelle Mcghee Referrals: Michelle Mcghee MD [Primary Care Provider] - Disposition Disposition: Home, Self Care
== END 2021-09-14 16:04 | disposition home or self-care (01) ==
PROVIDERS: Emergency Provider Emergency Medicine; PCP Internal Medicine; Visit Provider Emergency Medicine
DX: R10.9 Unspecified abdominal pain (principal); E78.00 Pure hypercholesterolemia, unspecified; F17.210 Nicotine dependence, cigarettes, uncomplicated; K21.9 Gastro-esophageal reflux disease without esophagitis; Z86.16 Personal history of COVID-19
CPT/HCPCS: 80053; 83605; 83690; 84703; 85025; 96361; 96374; 96375; 99283; J7030; A4216; J2405

== ENCOUNTER → 2022-09-01 | Outpatient (CLI) | payer OTHER, SELFPAY ==
[2022-09-01 17:07] LABS: Absolute Lymphocyte Count 2.43 X10^3/uL (0.83-4.51); Absolute Neutrophil Count 3.1 X10^3/uL (2.0-7.7); Basophil# 0.01 X10^3/uL; Basophil% 0.2 % (0-1); Eosinophils% 3.2 % (0-5); Hematocrit 42.8 % (37-47); Hemoglobin 14.5 g/dL (12.0-15.0); Lymphocyte # 2.43 X10^3/ul (0.83-4.51); Lymphocyte % 38.9 % (19-41); Mean Corp Hgb Conc 33.9 g/dL (32-36); Mean Corpuscular Hgb 34.7 pg (27.0-32.0); Mean Corpuscular Volume 102.4 fL (81-99); Mean Platelet Vol. 9.7 fl (6.2-12.0); Monocyte# 0.46 X10^3/uL; Monocyte% 7.4 % (0-10); NRBC Flagged by Analyzer 0 % (0-5); Neutrophil # 3.12 X10^3/uL (2.7-7.7); Platelet Count 305 K/mm3 (150-450); RBC Distribution Width SD 45.2 fl (35.1-43.9); Red Blood Count 4.18 M/mm3 (4.2-5.4); White Blood Count 6.2 K/mm3 (4.4-11.0)
[2022-09-01 17:30] LABS: ALB/GLOB Ratio 1.1 RATIO (0.9-2.4); AST(SGOT) 16 U/L (15-37); Alanine Aminotransfer ALT/SGPT 26 U/L (13-56); Albumin, Serum 3.7 g/dL (3.2-5.0); Alkaline Phosphatase 64 U/L (45-117); Anion Gap 6 (5-15); BUN 11 mg/dL (7-18); BUN/Creat Ratio 15.4 RATIO (10-20); Calcium,Total 8.8 mg/dL (8.5-10.1); Chloride 104 mmol/L (98-107); Creatinine, Serum 0.72 mg/dL (0.55-1.02); EST Glomerular Filtration Rate 94 mL/min (>60); Est Glom Filt Rate - Afr Amer 114 mL/min (>60); Globulin 3.4 g/dL (2.2-4.2); Glucose 85 mg/dL (74-106); Potassium 4.2 mmol/L (3.5-5.1); Protein, Total 7.1 g/dL (6.4-8.2); Sodium Level 137 mmol/L (136-145); T4 Free Direct 1.01 ng/dL (0.76-1.46); Thyroid Stim Hormone (TSH) 1.78 uIU/mL (0.358-3.74)
== END | disposition home or self-care (01) ==
LOC: BIMLAB 15:27
PROVIDERS: PCP Internal Medicine; Visit Provider Internal Medicine
DX: F41.1 Generalized anxiety disorder (principal); F41.0 Panic disorder [episodic paroxysmal anxiety]
CPT/HCPCS: 36415; 80053; 84439; 84443; 85025

== ENCOUNTER → 2022-11-16 | Outpatient (CLI) | payer OTHER, SELFPAY ==
--- NOTE | 2022-11-16 10:07 | BI_ITS ---
MAMMOGRAPHY - BILATERAL SCREENING REASON FOR EXAM: Female, 42 years old. Routine annual screening examination. PERTINENT HISTORY: Non-contributory. TECHNIQUE: Digital bilateral breast zulema (3D mammographic acquisition) in the CC and MLO projections. 2-D mediolateral oblique (MLO) and craniocaudad (CC) views of both breasts were obtained. CAD: Full Field Digital Mammography with Computer Added Detection was performed. COMPARISON: Comparison is made with prior study May 04, 2020. FINDINGS: Breast Composition: There are scattered areas of fibroglandular density. There are no dominant masses or suspicious calcifications. Stable benign-appearing bilateral axillary. No other significant abnormalities are identified. There has been no significant change since the prior study. BI/SCRN MAMM (CAD)W/ZULEMA BILAT IMPRESSION: Stable bilateral screening mammogram. Yearly follow-up mammogram recommended. (A) ASSESSMENT CATEGORY: BIRADS Category 2: Benign. A letter regarding these results will be sent to the patient by the facility within 30 days. Approximately 10% of breast cancers are not detected by mammography. A normal mammogram should not delay biopsy of a clinically suspicious abnormality. [id number] Electronically Signed: Arvind Moore MD at 13:49 EDT ,
== END | disposition home or self-care (01) ==
LOC: OPBI 10:03
PROVIDERS: PCP Internal Medicine
DX: Z12.31 Encounter for screening mammogram for malignant neoplasm of breast (principal)
CPT/HCPCS: 77063; 77067

== ENCOUNTER 2023-01-20 13:15 | Emergency (ER) | payer OTHER, SELFPAY ==
[2023-01-20 13:16] VITALS: BP 127/97; PULSE 75; RESP 16; TEMP 36.9; O2SAT 100; BMI 29.5
[2023-01-20 13:42] LABS: Absolute Lymphocyte Count 1.73 X10^3/uL (0.83-4.51); Absolute Neutrophil Count 3.4 X10^3/uL (2.0-7.7); Basophil# 0.01 X10^3/uL; Basophil% 0.2 % (0-1); Eosinophil# 0.17 X10^3/uL; Hematocrit 44.3 % (37-47); Hemoglobin 15.2 g/dL (12.0-15.0); Lymphocyte # 1.73 X10^3/ul (0.83-4.51); Lymphocyte % 30.1 % (19-41); Mean Corp Hgb Conc 34.3 g/dL (32-36); Mean Corpuscular Hgb 34.1 pg (27.0-32.0); Mean Corpuscular Volume 99.3 fL (81-99); Mean Platelet Vol. 9.2 fl (6.2-12.0); Monocyte# 0.46 X10^3/uL; NRBC Flagged by Analyzer 0 % (0-5); Neutrophil # 3.36 X10^3/uL (2.7-7.7); Neutrophil % 58.5 % (47-70); Platelet Count 251 K/mm3 (150-450); RBC Distribution Width CV 12.4 % (11.6-14.6); RBC Distribution Width SD 45.9 fl (35.1-43.9); Red Blood Count 4.46 M/mm3 (4.2-5.4); White Blood Count 5.7 K/mm3 (4.4-11.0)
[2023-01-20 13:42] LABS: Bacteria 0 SEEN /hpf (None Seen); Mucous, Urine 0 SEEN /hpf (<or=2+); Red Blood Cells-Urine 0 SEEN /hpf (0-5); Squamous Epithelial Cells - UA 0 SEEN /hpf (5-10); White Blood Cells 0 SEEN /hpf (0-5)
[2023-01-20 13:45] LABS: Color, Urine Yellow (Yellow); Glucose, Dipstick Normal (Normal); Ketone-Dipstick Negative (Negative); Leukocyte Esterase-Dipstick Negative /ul (Negative); Nitrite-Dipstick Negative (Negative); Occult Blood-Urine Negative /ul (Negative); Protein-Dipstick Negative (Negative); Urine Bilirubin Dipstick Negative (Negative); Urine Clarity Clear (Clear); Urine Urobilinogen Normal (Normal)
[2023-01-20 13:53] LABS: Internal QC Validated? YES +Cl - CLEAR BKGD; Pregnancy, Serum, hCG Quali. NEGATIVE Negative
[2023-01-20 14:28] LABS: ALB/GLOB Ratio 1.2 RATIO (0.9-2.4); AST(SGOT) 20 U/L (15-37); Alanine Aminotransfer ALT/SGPT 22 U/L (13-56); Albumin, Serum 3.8 g/dL (3.2-5.0); Alkaline Phosphatase 60 U/L (45-117); Anion Gap 7 (5-15); BUN 12 mg/dL (7-18); Chloride 105 mmol/L (98-107); EST Glomerular Filtration Rate 83 mL/min (>60); Est Glom Filt Rate - Afr Amer 100 mL/min (>60); Estimated Creatinine Clearance 75.01 ml/min; Globulin 3.2 g/dL (2.2-4.2); Glucose 92 mg/dL (74-106); Potassium 4.3 mmol/L (3.5-5.1); Sodium Level 137 mmol/L (136-145)
--- NOTE | 2023-01-20 15:00 | ED.VIS.GI ---
HPI HPI - GI History of Present Illness Chief Complaint: Abd Pain Informant: patient Abdominal Pain/Flank Pain Onset: Today Context: Sudden Onset Timing: Continuous Quality: Aching Location: Diffuse Worsened by: Nothing Relieved by: - (Certain positions) Nausea/Vomiting/Emesis GI Symptom: Negative for Nausea or Vomiting Diarrhea/Melena/Hematochezia GI Symptom: Negative for Diarrhea, Melena or Hematochezia Associated Symptoms Associated Symptoms: Negative for Dysuria, Frequency or Hematuria Narrative Narrative: Patient presents with abdominal pain that began today. Patient states it began rather suddenly. Patient states it has been constant. Patient describes it as aching. Patient states her pain is diffuse across her abdomen. Patient states it is somewhat better in certain positions. Patient states nothing makes it worse. Patient denies any nausea or vomiting. Patient denies any diarrhea. Patient denies any urinary complaints. 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 Patient states this feels similar to that. Patient states she has been following with [facility] for this. PFSH PFSH Medical History Acute back pain Alcohol use Anxiety Asthma Asthmatic bronchitis with exacerbation Carpal tunnel syndrome Gastric reflux Generalized anxiety disorder with panic attacks GERD (gastroesophageal reflux disease) High cholesterol History of COVID-19 History of echocardiogram History of hiatal hernia History of irregular heartbeat History of stress test Migraine headache Seasonal allergies Smoker Home Medications alprazolam 0.25 mg tablet (Xanax) 0.25 mg PO BID-TID PRN Anxiety 01/02/18 [History Last Taken 03/02/21 06:30 0.25 MG] levonorgestrel 21 mcg/24 hours (8 yrs) 52 mg intrauterine device (Mirena) 1 insert intrauterine ONCE bc 01/02/18 [History Last Taken Unknown] atorvastatin 40 mg tablet 40 mg PO QDAY cholesterol #90 tabs 07/19/21 [Rx Last Taken Unknown] fluticasone propionate 50 mcg/actuation nasal spray,suspension (Flonase Allergy Relief) 1 spray intranasal DAILY #16 grams 07/19/21 [Rx Last Taken Unknown] hydroxyzine HCl 25 mg tablet 25 mg PO TID PRN anxiety #90 tabs 12/05/22 [Rx Last Taken Unknown] albuterol sulfate 90 mcg/actuation aerosol inhaler 2 puff inhalation Q6H PRN shortness of breath or wheezing #8.5 grams 12/19/22 [Rx Last Taken Unknown] omeprazole 20 mg capsule,delayed release 20 mg PO QDAY GERD #90 caps 12/19/22 [Rx Last Taken Unknown] sertraline 50 mg tablet (Zoloft) 50 mg PO DAILY #90 tabs 12/19/22 [Rx Last Taken Unknown] meloxicam 15 mg tablet 15 mg PO DAILY PRN pain #20 tabs 01/20/23 [Rx Last Taken Unknown] Allergy/AdvReac Type Severity Reaction Status Date / Time Iodinated Contrast Media Allergy Shortness Verified 01/20/23 13:19 of breath Opioids - Morphine Analogues AdvReac Severe Vomiting Verified 01/20/23 13:19 [narcotics] Family History Father COPD (chronic obstructive pulmonary disease) Anxiety Asthma Mother Obesity Sister Asthma Diabetes Grandmother Hypertension Heart disease Grandfather Colon cancer Cancer prostate and lukemia Surgical History History of appendectomy History of carpal tunnel surgery of left wrist History of nasal septoplasty History of tonsillectomy Hx of inguinal hernia repair Social History Smoking Status: Current every day smoker tobacco type: cigarettes alcohol intake: current alcohol intake frequency: holidays/special occasions only Alcohol type: wine substance use type: does not use eating out: other details: twice a month what type of physical activity do you participate in: other details: does yard work and house work ROS ROS ED Constitutional Constitutional ED: Denies chills or fever(s) Eyes Eyes: Denies blurry vision or change in vision ENT ENT ED: Denies rhinorrhea or sore throat Cardiovascular Cardiovascular: Denies chest pain or palpitations Respiratory/Chest Respiratory/Chest: Denies cough or dyspnea Gastrointestinal Gastrointestinal: Reports abdominal pain; Denies nausea or vomiting Genitourinary Genitourinary ED: Denies dysuria or hematuria Musculoskeletal Musculoskeletal: Reports back pain; Denies neck pain Integumentary Denies abscess or rash Neurologic Neurologic: Denies headache(s) or weakness Allergic/Immunologic Allergic/Immunologic ED: Denies mouth swelling or urticaria EXAM Physical Exam Const Vital Signs: 01/20/23 13:16 Temperature 98.4 F Temperature Source Temporal Pulse Rate 75 Respiratory Rate 16 Blood Pressure 127/97 H Blood Pressure Mean 107 Pulse Ox 100 Oxygen Delivery Method Room Air Positive well nourished and well developed General Appearance ED: well developed HEENT Reports moist mucous membranes Neck supple and no JVD Resp normal respiratory effort and clear to auscultation bilaterally Cardio regular rate, regular rhythm and no murmurs GI normal to inspection, nondistended, normoactive bowel sounds Palpation: soft and tender epigastric, LLQ, RLQ, LUQ, RUQ, periumbilical and suprapubic; Negative for guarding or rebound tenderness present Extremity normal to inspection General Extremety ED: Negative for edema or tenderness General Extremity: Negative for edema Neuro oriented x3, CN's II-XII intact bilaterally and no sensory deficits noted Sensorium / Orientation: alert Motor Exam: strength 5/5 throughout Psych mental status grossly normal Skin no rashes or lesions noted MDM MDM MDM Narrative Medical decision making narrative: Differential diagnosis includes bowel obstruction, perforation, gastric ulcer, cholecystitis, cholelithiasis, hepatitis, pancreatitis, urinary tract infection, and pyelonephritis. CBC will be obtained to assess for leukocytosis and anemia. Comprehensive metabolic profile will be obtained to assess for hepatic function, renal function, and electrolyte abnormality. Lipase will be obtained to assess for pancreatitis. Urinalysis will be obtained to assess for urinary tract infection and hematuria. Serum hCG will be obtained to assess for . Lab Data Attestation: I reviewed the patient's lab results. Lab results narrative: CBC was reviewed and was within normal limits. Comprehensive metabolic profile was reviewed and was within normal limits. Urinalysis was reviewed. There is no evidence of urinary tract infection. Serum hCG was reviewed and was negative. Lipase was reviewed and was normal at 16. Labs: Laboratory Results - last 24 hr 01/20/23 01/20/23 01/20/23 13:25 13:30 13:30 WBC 5.7 RBC 4.46 Hgb 15.2 H Hct 44.3 MCV 99.3 H MCH 34.1 H MCHC 34.3 RDW Std Deviation 45.9 H RDW Coeff of Miguel Angel 12.4 Plt Count 251 MPV 9.2 Immature Gran % (Auto) 0.200 Neut % (Auto) 58.5 Lymph % (Auto) 30.1 Hawkins % (Auto) 8.0 Eos % (Auto) 3.0 Baso % (Auto) 0.2 Absolute Neuts (auto) 3.4 Absolute Lymphs (auto) 1.73 Nucleated RBC % 0 Sodium 137 Potassium 4.3 Chloride 105 Carbon Dioxide 25.0 Anion Gap 7 BUN 12 Creatinine 0.80 Estim Creat Clear Calc 75.01 Est GFR (MDRD) Af Amer 100 Est GFR (MDRD) Non-Af 83 BUN/Creatinine Ratio 15.0 Glucose 92 Calcium 9.0 Total Bilirubin 0.40 AST 20 ALT 22 Alkaline Phosphatase 60 Total Protein 7.0 Albumin 3.8 Globulin 3.2 Albumin/Globulin Ratio 1.2 Lipase Serum , Qual Urine Color Yellow Urine Clarity Clear Urine pH 6.0 Ur Specific [place] 1.020 Urine Protein Negative Urine Glucose (UA) Normal Urine Ketones Negative Urine Occult Blood Negative Urine Nitrite Negative Urine Bilirubin Negative Urine Urobilinogen Normal Ur Leukocyte Esterase Negative Urine RBC 0 SEEN Urine WBC 0 SEEN Ur Squamous Epith Cells 0 SEEN Urine Bacteria 0 SEEN Urine Mucus 0 SEEN 01/20/23 01/20/23 13:30 13:30 WBC RBC Hgb Hct MCV MCH MCHC RDW Std Deviation RDW Coeff of Miguel Angel Plt Count MPV Immature Gran % (Auto) Neut % (Auto) Lymph % (Auto) Hawkins % (Auto) Eos % (Auto) Baso % (Auto) Absolute Neuts (auto) Absolute Lymphs (auto) Nucleated RBC % Sodium Potassium Chloride Carbon Dioxide Anion Gap BUN Creatinine Estim Creat Clear Calc Est GFR (MDRD) Af Amer Est GFR (MDRD) Non-Af BUN/Creatinine Ratio Glucose Calcium Total Bilirubin AST ALT Alkaline Phosphatase Total Protein Albumin Globulin Albumin/Globulin Ratio Lipase 16 Serum , Qual NEGATIVE Urine Color Urine Clarity Urine pH Ur Specific [place] Urine Protein Urine Glucose (UA) Urine Ketones Urine Occult Blood Urine Nitrite Urine Bilirubin Urine Urobilinogen Ur Leukocyte Esterase Urine RBC Urine WBC Ur Squamous Epith Cells Urine Bacteria Urine Mucus Treatment and Re-Evaluation :: Patient was given IV fluids, Toradol, and Zofran. Patient was feeling better on reevaluation. Patient was advised of her findings. Patient was given a prescription for meloxicam. Patient was instructed to follow-up with her primary care physician in 5 to 7 days for reevaluation. Patient understood and was agreeable with the plan. All questions were answered. Discharge Plan Triage Chief Complaint: Abd Pain ED Provider: Schwiger,Orestes Dx/Rx/DC Orders Clinical Impression: Abdominal pain Instructions: ED Abdominal Pain Unkn Cause Fem Prescriptions: New meloxicam 15 mg tablet 15 mg PO DAILY PRN (Reason: pain) Qty: 20 0RF Discontinued ibuprofen 600 mg tablet 600 mg PO TID PRN Rx Instructions: Do not take in conjunction with other NSAID. Tylenol is okay No Action alprazolam [Xanax] 0.25 mg tablet 0.25 mg PO BID-TID PRN (Reason: Anxiety) levonorgestrel [Mirena] 20 mcg/24 hr (5 years) intrauterine device 1 insert Intrauterine ONCE atorvastatin 40 mg tablet 40 mg PO QDAY Qty: 90 0RF fluticasone propionate [Flonase Allergy Relief] 50 mcg/actuation spray,suspension 1 spray intranasal DAILY Qty: 16 0RF Rx Instructions: administer into each nostril hydroxyzine HCl 25 mg tablet 25 mg PO TID PRN (Reason: anxiety) Qty: 90 3RF albuterol sulfate 90 mcg/actuation HFA aerosol inhaler 2 puff inhalation Q6H PRN (Reason: shortness of breath or wheezing) Qty: 8.5 2RF omeprazole 20 mg capsule,delayed release(DR/EC) 20 mg PO QDAY Qty: 90 3RF sertraline [Zoloft] 50 mg tablet 50 mg PO DAILY Qty: 90 2RF Primary Care Provider: Michelle Mcghee Referrals: Michelle Mcghee MD [Primary Care Provider] - 5-7 Days Activity Restrictions/Additional Instructions: Do not take ibuprofen with the meloxicam. Disposition Disposition: Home, Self Care
[2023-01-20] MEDS: Ketorolac 15 MG/ML Vial IV (15:14)
[2023-01-20] MEDS: Ondansetron 4 MG/2 ML Vial IV (15:14)
[2023-01-20] MEDS: 0.9% Normal Saline 1,000 ML 1000 ML IV (15:14)
[2023-01-20 15:41] LABS: Lipase 16 U/L (13-75)
== END 2023-01-20 17:17 | disposition home or self-care (01) ==
PROVIDERS: Emergency Provider Emergency Medicine; PCP Internal Medicine; Visit Provider Emergency Medicine
DX: R10.9 Unspecified abdominal pain (principal); E78.00 Pure hypercholesterolemia, unspecified; F17.210 Nicotine dependence, cigarettes, uncomplicated; F41.9 Anxiety disorder, unspecified; Z79.899 Other long term (current) drug therapy; J45.909 Unspecified asthma, uncomplicated; Z79.51 Long term (current) use of inhaled steroids; K21.9 Gastro-esophageal reflux disease without esophagitis; Z90.49 Acquired absence of other specified parts of digestive tract
CPT/HCPCS: 80053; 81001; 83690; 84703; 85025; 99283; J7030; A4216; J2405

== ENCOUNTER → 2023-01-26 | Outpatient (CLI) | payer OTHER, SELFPAY ==
--- NOTE | 2023-01-26 13:50 | RAD_ITS ---
STUDY: X-RAY - LUMBAR SPINE REASON FOR EXAM: Female, 43 years old. Chronic Back pain TECHNIQUE: 5 view(s) of the lumbar spine were obtained. COMPARISON: None FINDINGS: Normal lumbar lordosis. There is no substantial scoliosis. There is a normal alignment of the vertebrae. Normal vertebral bodies. Normal disc space heights. Minor anterior endplate spurring at L4 IUD noted within the pelvis in the midline most likely within the uterus. RAD/L/S Spine Min 4 Views IMPRESSION: Early spondylotic change. No acute fracture or other significant bony pathology. Electronically Signed: Cruz Santiago MD at 20:16 EDT ,
[2023-01-26 15:48] LABS: Cholesterol 276 mg/dL (200); High Density Lipoprotein 99 mg/dL; Triglycerides 95 mg/dL; Very Low Density Lipoprotein 19 mg/dL (5-40)
== END | disposition home or self-care (01) ==
LOC: BIMLAB 13:22 → RAD 13:44
PROVIDERS: PCP Internal Medicine; Referring Provider Internal Medicine; Visit Provider Internal Medicine
DX: M54.9 Dorsalgia, unspecified (principal); G89.29 Other chronic pain; E78.5 Hyperlipidemia, unspecified
CPT/HCPCS: 36415; 72110; 80061

== ENCOUNTER 2023-09-12 08:52 | Emergency (ER) | payer OTHER, SELFPAY ==
[2023-09-12 08:53] VITALS: BP 130/90; PULSE 75; RESP 14; TEMP 36.6; O2SAT 98; BMI 29.7
[2023-09-12 09:32] VITALS: BP 132/91; PULSE 67; RESP 16; O2SAT 98
--- NOTE | 2023-09-12 09:33 | EDS_ITS ---
HPI History of Present Illness Chief Complaint: Dizziness Informant: patient Onset/Context/Timing Onset: Today (2-3 hours ago) Context: Sudden Onset Timing: Continuous Quality: Like I am spinning Location: Head Current Severity: Moderate Maximum Severity: Severe Worsened by: Any head movement Relieved by: Remaining still Associated Symptoms Associated Symptoms: Nausea, otherwise none Narrative Narrative: Patient had acute onset of vertigo upon lifting her head off of the pillow when she woke up this morning, worse when she got up out of bed, worse when she turns her head or moves. Denies any numbness, tingling, weakness in extremities, trouble speaking, headache, earache, tinnitus. Never had this before. She had COVID about 3 weeks ago, did not have ear symptoms with it or an ear infection. No recent head trauma. No fevers or chills this morning or other acute symptoms. She has not vomited but feels like she is going to. PFSH PFSH Medical History Acute back pain Alcohol use Anxiety Asthma Asthmatic bronchitis with exacerbation Carpal tunnel syndrome Chronic back pain Gastric reflux Generalized anxiety disorder with panic attacks GERD (gastroesophageal reflux disease) High cholesterol History of COVID-19 History of echocardiogram History of hiatal hernia History of irregular heartbeat History of stress test Migraine headache Seasonal allergies Smoker Home Medications alprazolam 0.25 mg tablet (Xanax) 0.25 mg PO BID-TID PRN Anxiety 01/02/18 [History Last Taken 03/02/21 06:30 0.25 MG] levonorgestrel 21 mcg/24 hours (8 yrs) 52 mg intrauterine device (Mirena) 1 insert intrauterine ONCE bc 01/02/18 [History Last Taken Unknown] fluticasone propionate 50 mcg/actuation nasal spray,suspension (Flonase Allergy Relief) 1 spray intranasal DAILY #16 grams 07/19/21 [Rx Last Taken Unknown] hydroxyzine HCl 25 mg tablet 25 mg PO TID PRN anxiety #90 tabs 12/05/22 [Rx Last Taken Unknown] albuterol sulfate 90 mcg/actuation aerosol inhaler 2 puff inhalation Q6H PRN shortness of breath or wheezing #8.5 grams 12/19/22 [Rx Last Taken Unknown] omeprazole 20 mg capsule,delayed release 20 mg PO QDAY GERD #90 caps 12/19/22 [Rx Last Taken Unknown] sertraline 50 mg tablet (Zoloft) 50 mg PO DAILY #90 tabs 12/19/22 [Rx Last Taken Unknown] meloxicam 15 mg tablet 15 mg PO DAILY PRN pain #20 tabs 01/20/23 [Rx Last Taken Unknown] atorvastatin 40 mg tablet 40 mg PO QDAY cholesterol #90 tabs 01/27/23 [Rx Last Taken Unknown] lorazepam 0.5 mg tablet 0.5 mg PO TID PRN dizziness or vertigo #10 tabs 09/12/23 [Rx Last Taken Unknown] meclizine 25 mg tablet 25 mg PO Q8H PRN PRN Dizziness #20 tabs 09/12/23 [Rx Last Taken Unknown] Allergy/AdvReac Type Severity Reaction Status Date / Time Iodinated Contrast Media Allergy Shortness Verified 09/12/23 08:53 of breath Opioids - Morphine Analogues AdvReac Severe Vomiting Verified 09/12/23 08:53 [narcotics] Family History Father COPD (chronic obstructive pulmonary disease) Anxiety Asthma Mother Obesity Sister Asthma Diabetes Grandmother Hypertension Heart disease Grandfather Colon cancer Cancer prostate and lukemia Surgical History History of appendectomy History of carpal tunnel surgery of left wrist History of nasal septoplasty History of tonsillectomy Hx of inguinal hernia repair Social History Smoking Status: Current every day smoker tobacco type: cigarettes alcohol intake: current alcohol intake frequency: holidays/special occasions only Alcohol type: wine substance use type: does not use eating out: other details: twice a month what type of physical activity do you participate in: other details: does yard work and house work ROS ROS ED Constitutional Constitutional ED: Denies chills or fever(s) Eyes Eyes: Denies change in vision or diplopia ENT ENT ED: Reports vertigo; Denies ear discharge, ear pain, rhinorrhea or sore throat Cardiovascular Cardiovascular: Denies chest pain or palpitations Respiratory/Chest Respiratory/Chest: Denies cough or dyspnea Gastrointestinal Gastrointestinal: Reports nausea; Denies abdominal pain, diarrhea or vomiting Genitourinary Genitourinary ED: Denies dysuria or hematuria Musculoskeletal Musculoskeletal: Denies back pain or neck pain Integumentary Denies abscess or rash Neurologic Neurologic: Denies headache(s), paresthesias or weakness Psychiatric Psychiatric: Denies anxiety or suicidal thoughts EXAM Physical Exam Const Vital Signs: 09/12/23 08:53 09/12/23 09:32 09/12/23 09:32 Temperature 98 F Temperature Source Temporal Pulse Rate 75 67 Respiratory Rate 14 16 Respiratory Effort Normal Non-Labored Respiratory Pattern Normal Blood Pressure 130/90 H 132/91 H Blood Pressure Mean 103 104 Pulse Ox 98 98 Oxygen Delivery Method Room Air Room Air 09/12/23 10:41 Temperature Temperature Source Pulse Rate 72 Respiratory Rate 14 Respiratory Effort Respiratory Pattern Blood Pressure 116/81 H Blood Pressure Mean 92 Pulse Ox 94 Oxygen Delivery Method Room Air Positive well nourished and well developed General Appearance ED: well developed and NAD HEENT Reports TM's clear and moist mucous membranes HEENT Narrative: EAC normal bilaterally. normocephalic and atraumatic Tympanic Membrane ED: Yes TM's clear Eyes PERRL and EOMs intact bilaterally Eyes Narrative: Patient has what appears to be nonfatigable horizontal nystagmus to the left, it is less prominent to the right, there is no vertical or rotatory nystagmus. Neck full ROM and supple Resp normal respiratory effort and clear to auscultation bilaterally Cardio regular rate, regular rhythm and no murmurs GI non-tender and non-distended Auscultation: normoactive bowel sounds Palpation: soft Back/Spine no CVA tenderness General Back: other FROM Extremity normal to inspection General Extremety ED: Negative for edema, pulses abnormal or tenderness General Extremity: Negative for edema or pulses abnormal Neuro oriented x3, CN's II-XII intact bilaterally and no sensory deficits noted Neuro Narrative: Normal iesusq-hm-allu and pbon-ba-gchp bilaterally. Normal speech. NIHSS 0. Patient has an abnormal jolt test. Sensorium / Orientation: awake and alert Motor Exam: strength 5/5 throughout Psych mental status grossly normal Skin no rashes or lesions noted and no wounds MDM MDM MDM Narrative Medical decision making narrative: Patient very symptomatic with a normal blood pressure not wanting to move her he ad due to symptoms. With an abnormal jolt test on the history, this is all very consistent with peripheral vertigo and I do not think she needs any advanced imaging of the brain although was considered and discussed with the patient. Also do not think that blood tests are going to help. This is clearly vertigo. She was fairly symptomatic especially with jolt testing. She was given oral Zofran, Ativan, meclizine and observed. She is not able to tolerate Lamar maneuver or Milford-Hallpike, nor did she want to try when she was feeling better understandably. Differential includes labyrinthitis as well as BPPV, this is not likely to be central in etiology and not likely to be an intracranial mass. Patient feeling much better after the medications. Will prescribe her meclizine and some Ativan to use only if the symptoms get more severe and she needs it, she is comfortable with that plan and outpatient follow-up advised. Discharge Plan Triage Chief Complaint: Dizziness ED Provider: James Cortes Dx/Rx/DC Orders Clinical Impression: Peripheral vertigo, unspecified Instructions: ED BPV Vertigo, ED Labyrinthitis Prescriptions: New meclizine [meclizine] 25 mg tablet 25 mg PO Q8H PRN PRN (Reason: Dizziness) Qty: 20 0RF lorazepam [lorazepam] 0.5 mg tablet 0.5 mg PO TID PRN (Reason: dizziness or vertigo) Qty: 10 0RF No Action alprazolam [Xanax] 0.25 mg tablet 0.25 mg PO BID-TID PRN (Reason: Anxiety) levonorgestrel [Mirena] 20 mcg/24 hr (5 years) intrauterine device 1 insert Intrauterine ONCE fluticasone propionate [Flonase Allergy Relief] 50 mcg/actuation spray,suspension 1 spray intranasal DAILY Qty: 16 0RF Rx Instructions: administer into each nostril hydroxyzine HCl 25 mg tablet 25 mg PO TID PRN (Reason: anxiety) Qty: 90 3RF meloxicam 15 mg tablet 15 mg PO DAILY PRN (Reason: pain) Qty: 20 0RF albuterol sulfate 90 mcg/actuation HFA aerosol inhaler 2 puff inhalation Q6H PRN (Reason: shortness of breath or wheezing) Qty: 8.5 2RF omeprazole 20 mg capsule,delayed release(DR/EC) 20 mg PO QDAY Qty: 90 3RF sertraline [Zoloft] 50 mg tablet 50 mg PO DAILY Qty: 90 2RF atorvastatin 40 mg tablet 40 mg PO QDAY Qty: 90 2RF Primary Care Provider: Michelle Mcghee Referrals: Manpreet Rene MD [Med Staff - Active Staff] - 1 Week if not improving Michelle Mcghee MD [Primary Care Provider] - Disposition Disposition: Home, Self Care
[2023-09-12] MEDS: Meclizine HCl 25 MG Tablet PO (09:34)
[2023-09-12] MEDS: Ondansetron ODT 4 MG Tablet 8 MG PO (09:34)
[2023-09-12] MEDS: LORazepam 1 MG Tablet PO (09:34)
--- OUTSIDE RECORDS SUMMARY | 2023-09-12 10:17 | XMS RPT_ITS | CCD ---
Author Name Unknown Address [address] [place] [address] Organization [facility] Care Team Providers Care Fraud Investigator Name Role Phone PHYSICIAN, NONE Primary Care Physician Unavailab MARTHA Fallon Attending Unavail able PHYSICIAN, NONE Primary Care Unavailable Allergies Allergy Classification Reported Allergen(s) Allergy Type Date of Onset Reaction(s) Facility (1 source) Contrast media; Translations: [iodinated radiocontrast agents] Drug allergy Tightness in throat (finding) [facility] Medications Current Medications Medication Drug Class(es) Dates Sig (Normalized) Sig (Original) Albuterol (Eqv-ProAir HFA) 90 mcg/inh inhalation aerosol (1 source) Start: 09-28-2022 Albuterol (Eqv-ProAir HFA) 90 mcg/inh inhalation aerosol 0 Refill(s) Start Date: 09/28/22 Status: Ordered metroNIDAZOLE 500 mg oral tablet (1 source) Nitroimidazole Antimicrobial Start: 09-29-2022 End: 10-06-2022 metroNIDAZOLE 500 mg oral tablet Dose : 500 mg = 1 tab(s), Oral, BID, X 7 day(s), # 14 tab(s), 0 Refill(s), 10/06/22 10:58:00 EST, Pharmacy: [facility], Bacterial vaginosis, 160, cm, 09/28/22 10:01:00 EST, Height, 71 Start Date: 09/29/22 Stop Date: 10/06/22 Status: Ordered omeprazole 20 mg delayed release oral capsule (1 source) Proton Pump Inhibitor Start: 09-28-2022 take 1 capsule by mouth once daily omeprazole 20 mg oral delayed release capsule TAKE 1 CAPSULE BY MOUTH EVERY DAY Start Date: 09/28/22 Status: Ordered sertraline 50 mg oral tablet (1 source) Serotonin Reuptake Inhibitor Start: 09-28-2022 sertraline 50 mg oral tablet Take 1/2 tablet for 1 week then take 1 tablet DAILY Start Date: 09/28/22 Status: Ordered Problems Problem Classification Problem Date Documented Da te Episodic/Chronic Inflammatory diseases of female pelvic organs (2 sources) Acute vaginitis; Translations: [Acute vaginitis] Onset: 09-28-2022 Episodic Other screening for suspected conditions (not mental disorders or infectious disease) (2 sources) Encounter for screening for malignant neoplasm of cervix; Translations: [Encounter for screening for malignant neoplasm of cervix] Onset: 09-28-2022 Episodic Results Test Name Value Interpretation Reference Range Facil ity Encounters Encounter Date Encounter Type Care Provider Facility Start: 09-28-2022 End: 10-03-2022 ambulatory MARTHA MALIN Facility:B Start: 09-28-2022 End: 10-03-2022 Encounter for gynecological examination (general) (routine) without abnormal findings MARTHA MALIN Facility:B Start: 09-28-2022 End: 10-02-2022 Outreach Lab MARTHA MALIN [facility] Procedures Date Procedure Procedure Detail Performing Clinician Appendectomy MARTHA MALIN Payers Date Payer Category Payer Private Health Insurance [id number] 1980 Unknown [id number] Social History Date Type Detail Facility Start: 09-28-2022 Tobacco smoking status Ex-smoker (fi nding) [facility] Sex Assigned At Female [facility] Clinical Note 09-29-2022 Note Date & Type Note Facility 09-29-2022 Note . MICRO - Microbiology PROCEDURE: Affirm Pathogens DNA Direct Probe [*1] SOURCE: Vaginal Fluid BODY SITE: Cervix COLLECTED DATE/TIME: 09/28/2022 10:35 EST RECEIVED DATE/TIME: 09/28/2022 20:28 EST START DATE/TIME: 09/28/2022 20:28 EST FREE TEXT SOURCE: FINAL REPORTS Final Report [] Verified Date/Time/Personnel: 09/29/2022 09:01 EST Gardnerella vaginalis DNA Probe Positive Trichomonas vaginalis DNA Probe Negative Etelvina species DNA Probe Negative Performing Locations *1: This test was performed at: [facility], [address] [place] [address], [facility] , [facility] ([place]) Evaluation + Plan note 09-28-2022 LaboratoryRadiology Note Date & Type Note Facility 09-28-2022 Evaluation + Plan note Future Scheduled TestsPathology Supervisor Drying Request 09/28/22MA Mammo Screening Bilateral w/ Patrick 09/28/22 [facility] Progress note 06-21-2021 Note Date & Type Note Facility 06-21-2021 Note HNO ID: [id number] Author: RT Jennifer(R) Service: Radiology Author Type: Technologist Type: Progress Notes Filed: 06/21/2021 10:42 AM Note Text: Radiology Service Progress Note PATIENT NAME: Marilin Maki DATE OF SERVICE: June 21, 2021 TIME: 10:41 AM PATIENT IDENTITY VERIFICATION COMPLETED USING TWO (2) IDENTIFIERS: Name and Date of confirmed by patient verbally and Name and Date of confirmed by identification band. FALL SCREENING: Has the patient had 2 falls in the last year or 1 fall with injury or currently using an Ambulatory Assistive Device (Walker, Cane, Wheelchair, Crutches, etc.)? No PATIENT GENDER DATA: Female. status: : No status: NO. PATIENT RELEVANT IMPLANT DATA REVIEWED: Yes RADIOLOGY DEPARTMENT: MR; Exam(s) Completed: Vascular: Lymphangiogram performed with Dr. PABLO CAN IV DATA: Site assessment: Clean,Dry and Intact, Site disposition Discontinued SIGNED BY: RT Jennifer(R) June 21, 2021 10:41 AM [facility] Progress note 05-14-2021 Note Date & Type Note Facility 05-14-2021 Note HNO ID: [id number] Author: Tori Arreola RN Service: ? Author Type: Registered Nurse Type: Progress Notes Filed: 05/14/2021 6:19 PM Note Text: Radiology Service Progress Note DATE OF SERVICE: May 14, 2021 TIME: 6:12 PM PATIENT WEIGHT: 162LBS PATIENT IDENTITY VERIFICATION COMPLETED USING TWO (2) STANDARD IDENTIFIERS: Name and Date of confirmed by patient verbally. FALL SCREENING: Has the patient had 2 falls in the last year or 1 fall with injury or currently using an Ambulatory Assistive Device (Walker, Cane, Wheelchair, Crutches, etc.)? No PATIENT GENDER DATA: Female. status: : No status: NO. ALLERGIES: Reviewed and unchanged CONTRAST ALLERGY: No EXAM: MRI - CONTRAST TYPE: GROUP II IV SITE: Ambulatory: A peripheral IV was started in the Right forearm with a Angio cath: 22 gauge. IV SITE APPEARANCE: Clean,Dry and Intact SIGNATURE: Tori Arreola RN PATIENT NAME: Marilin Maki DATE: May 14, 2021 TIME: 6:12 PM [facility] Progress note 05-14-2021 Note Date & Type Note Facility 05-14-2021 Note HNO ID: [id number] Author: RT Tricia(Steven) Service: Radiology Author Type: Technologist Type: Progress Notes Filed: 05/14/2021 8:53 PM Note Text: Radiology Service Progress Note PATIENT NAME: Marilin Maki DATE OF SERVICE: May 14, 2021 TIME: 8:52 PM PATIENT IDENTITY VERIFICATION COMPLETED USING TWO (2) IDENTIFIERS: Name and Date of confirmed by patient verbally and Name and Date of confirmed by identification band. FALL SCREENING: Has the patient had 2 falls in the last year or 1 fall with injury or currently using an Ambulatory Assistive Device (Walker, Cane, Wheelchair, Crutches, etc.)? No PATIENT GENDER DATA: Female. status: : No status: NO. PATIENT RELEVANT IMPLANT DATA REVIEWED: Yes RADIOLOGY DEPARTMENT: MR; Exam(s) Completed: Body: MRA CHEST/ABD/PEL Chest: MRA CHEST/ABD/PEL PERIPHERAL IV DATA: Site assessment: Clean,Dry and Intact, Site disposition Discontinued SIGNED BY: RT Tricia(R) May 14, 2021 8:52 PM [facility] Progress note 03-24-2021 Note Date & Type Note Facility 03-24-2021 Note HNO ID: [id number] Author: RT Michael(R) Service: ? Author Type: Safety Glass Installer Type: Progress Notes Filed: 03/24/2021 3:34 PM Note Text: Radiology Service Progress Note PATIENT NAME: Marilin Maki DATE OF SERVICE: March 24, 2021 TIME: 3:34 PM PATIENT IDENTITY VERIFICATION COMPLETED USING TWO (2) IDENTIFIERS: Name and Date of confirmed by patient verbally and Name and Date of confirmed by identification band. FALL SCREENING: Has the patient had 2 falls in the last year or 1 fall with injury or currently using an Ambulatory Assistive Device (Walker, Cane, Wheelchair, Crutches, etc.)? Inpatient: Screened on floor PATIENT GENDER DATA: Male PATIENT RELEVANT IMPLANT DATA REVIEWED: Not Applicable RADIOLOGY DEPARTMENT: Ultrasound PERIPHERAL IV DATA: Not applicable SIGNED BY: RT Michael(R) March 24, 2021 3:34 PM [facility] Progress note 03-19-2021 Note Date & Type Note Facility 03-19-2021 Note HNO ID: [id number] Author: Lucretia Schwartz PA-C Service: ? Author Type: Physician Child Welfare Specialist Type: Progress Notes Filed: 03/19/2021 8:20 AM Note Text: Us [facility] course Narrative Note Date & Type Note Facility Hospital course Narrative No data available for this section [facility] Hospital Discharge instructions Note Date & Type Note Facility Hospital Discharge instructions No data available for this section [facility] Progress note Note Date & Type Note Facility Progress note No data available for this section [facility] Summary Purpose Family History No Family History Records FoundNo Family History Records Found Advance Directives No Advanced Directives Records FoundNo Advanced Directives Records Found Additional Source Comments INFORMATION SOURCE (unrecogn ized section and content) DATE CREATED AUTHOR AUTHOR'S ORGANIZ ATION 10/07/[address] [facility] ([place] Care Team (unrecognized sect ion and content) Care Team Personnel Name: PHYSICIAN, NONE Position: Physician Member Role: Primary Care Physician Care Team Related Persons Name: JUN MAKI FOR RECORDS PERTAINING TO PATIENTS WHO ARE OR HAVE BEEN ENROLLED IN A CHEMICAL DEPENDENCY/SUBSTANCEABUSE PROGRAM, SOME INFORMATION MAY BE OMITTED. This clinical summary was aggregated from multiple sources. Caution should be exercised in using it in the provision of clinical care. This summary normalizes information from multiple sources, and as a consequence, information in this document may materially change the coding, format and clinical context of patient data. In addition, data may be omitted in some cases. CLINICAL DECISIONS SHOULD BE BASED ON THE PRIMARY CLINICAL RECORDS. [facility] [employer] [facility]. provides no warranty or guarantee of the accuracy or completeness of information in this document.
[2023-09-12 10:41] VITALS: BP 116/81; PULSE 72; RESP 14; O2SAT 94
[2023-09-12 11:45] VITALS: BP 114/81; PULSE 69; RESP 14; O2SAT 98
== END 2023-09-12 11:47 | disposition home or self-care (01) ==
PROVIDERS: Emergency Provider Emergency Medicine; PCP Internal Medicine; Visit Provider Emergency Medicine
DX: H81.399 Other peripheral vertigo, unspecified ear (principal); M54.9 Dorsalgia, unspecified; F17.200 Nicotine dependence, unspecified, uncomplicated; Z86.16 Personal history of COVID-19; G89.29 Other chronic pain; K21.9 Gastro-esophageal reflux disease without esophagitis
CPT/HCPCS: 99283; A4216

== ENCOUNTER → 2023-10-09 | Outpatient (CLI) | payer OTHER, SELFPAY ==
--- NOTE | 2023-10-09 09:18 | RAD_ITS ---
STUDY: X-RAY - LEFT SHOULDER REASON FOR EXAM: Female, 43 years old. Left shoulder pain following injury. TECHNIQUE: 4 view(s) of the shoulder. COMPARISON: None. FINDINGS: Normal glenohumeral articulation. Normal acromioclavicular joint. Normal acromion. Normal humeral head and visualized proximal humerus. The soft tissue structures are unremarkable. Normal visualized pulmonary apex. RAD/Shoulder min 2 Views IMPRESSION: Normal x-ray examination of the shoulder. Electronically Signed: Arvind Moore MD at 11:18 EST ,
--- OUTSIDE RECORDS SUMMARY | 2023-10-09 09:49 | XMS RPT_ITS | CCD ---
Author Name Unknown Address [address] [place] [address] Organization [facility] Care Team Providers Care Musical Instrument Mechanic Name Role Phone PHYSICIAN, NONE Primary Care Physician Unavailab MARTHA Fallon Attending Unavail able PHYSICIAN, NONE Primary Care Unavailable Allergies Allergy Classification Reported Allergen(s) Allergy Type Date of Onset Reaction(s) Facility (1 source) Contrast media; Translations: [iodinated radiocontrast agents] Drug allergy Tightness in throat (finding) [facility] Medications Current Medications [...] tab(s), 0 Refill(s), 10/06/22 10:58:00 EST, Pharmacy: [id number], Bacterial vaginosis, 160, cm, 09/28/22 10:01:00 [...] 09-28-2022 End: 10-02-2022 Outreach Lab MARTHA MALIN [facility] Procedures Date Procedure Procedure Detail Performing Clinician Appendectomy MARTHA MALIN Payers Date Payer Category Payer Private Health Insurance [id number] 1980 Unknown [id number] Social History Date Type Detail Facility Start: 09-28-2022 Tobacco smoking status Ex-smoker (fi nding) [facility] Sex Assigned At Female [facility] Clinical Note 09-29-2022 Note Date & Type [...] Locations *1: This test was performed at: [facility], [address] [place] [address], [facility] , Pending sale to [facility] ([place]) Evaluation + Plan note 09-28-2022 LaboratoryRadiology Note Date & Type Note Facility 09-28-2022 Evaluation + Plan note Future Scheduled TestsPathology Livestock Showman Request 09/28/22MA Mammo Screening Bilateral w/ Patrick 09/28/22 [facility] Progress note 06-21-2021 Note Date & Type Note Facility 06-21-2021 Note HNO ID: [id number] Author: RT Jennifer(R) Service: Radiology Author Type: [...] RT Jennifer(R) June 21, 2021 10:[address] [facility] Progress note 05-14-2021 Note Date & Type Note Facility 05-14-2021 Note HNO ID: [id number] Author: Tori Arreola RN Service: ? Author [...] DATE: May 14, 2021 TIME: 6:[address] [facility] Progress note 05-14-2021 Note Date & Type Note Facility 05-14-2021 Note HNO ID: [id number] Author: RT Tricia(Steven) Service: Radiology Author Type: [...] RT Tricia(R) May 14, 2021 8:[address] [facility] Progress note 03-24-2021 Note Date & Type Note Facility 03-24-2021 Note HNO ID: [id number] Author: RT Michael(R) Service: ? Author Type: Breast Surgeon Type: Progress Notes Filed: 03/24/2021 3:34 PM [...] RT Michael(R) March 24, 2021 3:[address] [facility] Progress note 03-19-2021 Note Date & Type Note Facility 03-19-2021 Note HNO ID: [id number] Author: Lucretia Schwartz PA-C Service: ? Author Type: Physician Tv Technician Type: Progress Notes Filed: 03/19/2021 8:20 AM Note Text: Us [facility] course Narrative Note Date & Type Note Facility Hospital course Narrative No data available for this section [facility] Hospital Discharge instructions Note Date & Type Note Facility Hospital Discharge instructions No data available for this section [facility] Progress note Note Date & Type Note Facility Progress note No data available for this section [facility] Summary Purpose Family History No Family History Records FoundNo Family History Records Found Advance Directives No Advanced Directives Records FoundNo Advanced Directives Records Found Additional Source Comments INFORMATION SOURCE (unrecogn ized section and content) DATE CREATED AUTHOR AUTHOR'S ORGANIZ ATION 10/07/2022 [facility] Care Team (unrecognized sect ion and [...] BE BASED ON THE PRIMARY CLINICAL RECORDS. [facility] [email or web address] [facility]. provides no warranty or guarantee of the accuracy or completeness of information in this document.
== END | disposition home or self-care (01) ==
LOC: RAD 09:18
PROVIDERS: PCP Internal Medicine; Referring Provider Internal Medicine; Visit Provider Internal Medicine
DX: M25.512 Pain in left shoulder (principal)
CPT/HCPCS: 73030

== ENCOUNTER → 2024-01-31 | Outpatient (CLI) | payer OTHER, SELFPAY ==
[2024-01-31 12:24] LABS: Absolute Lymphocyte Count 1.38 X10^3/uL (0.83-4.51); Absolute Neutrophil Count 2.9 X10^3/uL (2.0-7.7); Basophil# 0.01 X10^3/uL; Basophil% 0.2 % (0-1); Eosinophil# 0.11 X10^3/uL; Eosinophils% 2.3 % (0-5); Hematocrit 39.8 % (37-47); Hemoglobin 13.3 g/dL (12.0-15.0); Lymphocyte # 1.38 X10^3/ul (0.83-4.51); Lymphocyte % 29.1 % (19-41); Mean Corp Hgb Conc 33.4 g/dL (32-36); Mean Corpuscular Hgb 33.5 pg (27.0-32.0); Mean Corpuscular Volume 100.3 fL (81-99); Monocyte# 0.34 X10^3/uL; Monocyte% 7.2 % (0-10); NRBC Flagged by Analyzer 0 % (0-5); Platelet Count 237 K/mm3 (150-450); RBC Distribution Width CV 12.7 % (11.6-14.6); RBC Distribution Width SD 46.6 fl (35.1-43.9); Red Blood Count 3.97 M/mm3 (4.2-5.4); White Blood Count 4.8 K/mm3 (4.4-11.0)
[2024-01-31 12:57] LABS: ALB/GLOB Ratio 1.1 RATIO (0.9-2.4); AST(SGOT) 15 U/L (15-37); Alanine Aminotransfer ALT/SGPT 26 U/L (13-56); Albumin, Serum 3.7 g/dL (3.2-5.0); Alkaline Phosphatase 61 U/L (45-117); Anion Gap 6 (5-15); BUN 15 mg/dL (7-18); BUN/Creat Ratio 20.9 RATIO (10-20); Calcium,Total 9.1 mg/dL (8.5-10.1); Chloride 105 mmol/L (98-107); Cholesterol 239 mg/dL (200); Creatinine, Serum 0.72 mg/dL (0.55-1.02); EST Glomerular Filtration Rate 94 mL/min (>60); Est Glom Filt Rate - Afr Amer 113 mL/min (>60); Globulin 3.4 g/dL (2.2-4.2); Glucose 103 mg/dL (74-106); High Density Lipoprotein 81 mg/dL; Potassium 4.3 mmol/L (3.5-5.1); Protein, Total 7.1 g/dL (6.4-8.2); Sodium Level 138 mmol/L (136-145); Triglycerides 110 mg/dL; Very Low Density Lipoprotein 22 mg/dL (5-40)
== END | disposition home or self-care (01) ==
LOC: BIMLAB 10:53
PROVIDERS: PCP Internal Medicine; Referring Provider Internal Medicine; Visit Provider Internal Medicine
DX: Z00.00 Encounter for general adult medical examination without abnormal findings (principal)
CPT/HCPCS: 36415; 80053; 80061; 85025

== ENCOUNTER 2024-02-07 12:25 | Day surgery (SDC) | payer OTHER, SELFPAY ==
[2024-02-07] VITALS (7 sets, daily range): BP systolic 92–113; BP diastolic 65–75; PULSE 67–82; RESP 16; TEMP 36.9–37.6; O2SAT 93–100; BMI 31.2
[2024-02-07 12:48] LABS: Internal QC Validated? YES +Cl - CLEAR BKGD; Pregnancy, Urine Negative Negative
[2024-02-07 12:49] LABS: Record Kit Lot#,Urine Preg HCG0000772476
[2024-02-07] MEDS: Lactated Ringers 1,000 ML 15 ML IV (12:54)
--- NOTE | 2024-02-07 13:05 | PCM.PRE.AN2 ---
ASA Classification* ASA Classification ASA Classification: 2 Assessment & Plan Anesthesia* Anesthesia Assessment Anesthesia Assessment: Discussed sedation and/or anesthesia options, risks, benefits, and alternatives with patient/parents/legal guardian/POA. Questions invited. The patient/parents/legal guardian/POA seems to understand and agrees to proceed with anesthesia plan. Reviewed the physical assessment, medical history, allergy history and patient home medications list prior to surgery/procedure/anesthetic and documented any changes. Performed airway and anesthesia risk assessments. Procedural Plan Procedural Plan:: Proceed w/ Anesthesia plan Anesthesia Type Anesthesia Type: MAC History Source History Obtained from:: Patient and Chart Anesthesia Focused Assessment* Temperature: 98.4 F Pulse Rate: 79 Blood Pressure: 113/75 Respiratory Rate: 16 Pulse Ox: 93 Oxygen Delivery Method: Room Air Airway Assessment Mouth opens: >3 cm Mallampati Score: I Teeth Condition: Intact Neck Range of motion (ROM): Full ROM Focused Labs Anesthesia Preop lab: CBC WBC 4.8 K/mm3 (4.4-11.0) 01/31/24 10:53 RBC 3.97 M/mm3 (4.2-5.4) L 01/31/24 10:53 Hgb 13.3 g/dL (12.0-15.0) 01/31/24 10:53 Hct 39.8 % (37-47) 01/31/24 10:53 Plt Count 237 K/mm3 (150-450) 01/31/24 10:53 CHEMISTRY Potassium 4.3 mmol/L (3.5-5.1) 01/31/24 10:53 Sodium 138 mmol/L (136-145) 01/31/24 10:53 BUN 15 mg/dL (7-18) 01/31/24 10:53 Creatinine 0.72 mg/dL (0.55-1.02) 01/31/24 10:53 Glucose 103 mg/dL (74-106) 01/31/24 10:53 TSH 1.78 uIU/mL (0.358-3.74) 09/01/22 15:27 COAG Urine Test Negative Negative 02/07/24 12:30 Pre-Assessment Diagnosis/Proposed Procedure Planned Operative Procedure(s): COLONOSCOPY Anesthesia History 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 When Was Last Pacemaker Check QUESTION #4 FULL TEXT: You/Your Family Experience fever (hyperthermia) with Anesthesia Last Oral Intake Last Oral intake: Last Oral Intake NPO since 08:00 02/07/24 12:48 Meds taken in AM with sips of No 02/07/24 12:48 water? Meds patient instructed to take am of surgery Any additional information?: Yes Meds patient instructed to take am of surgery: Patient finished prep at 8:00 PONV PONV - telecommunications line mechanic: PONV - telecommunications line mechanic Female Yes 02/02/24 16:18 HX of Motion Sickness Yes 02/02/24 16:18 HX of N/V After Surgery No 02/02/24 16:18 Non-Smoker Yes 02/02/24 16:18 Duration of Surgery greater No 02/02/24 16:18 than 60 minutes Number of Risk Factors 3 02/02/24 16:18 PONV Score Moderate Risk 02/02/24 16:18 Height & Weight Height & Weight: Anesthesia: Height & Weight Height 5 ft 3 in 02/07/24 12:48 Weight: 80 kg 02/07/24 12:48 Body Mass Index (BMI) 31.2 02/07/24 12:48 Respiratory Assessment Respiratory Assessment - telecommunications line mechanic: Respiratory Tract Infection Hx - telecommunications line mechanic Hx Respiratory Tract Infection No 02/02/24 16:18 STOP Sleep Apnea STOP Sleep Apnea - telecommunications line mechanic: STOP Sleep Apnea - telecommunications line mechanic Hx Hypertension No 02/02/24 16:18 Hx Sleep Apnea No 02/02/24 16:18 CPAP BIPAP Do you snore loudly (louder No 02/02/24 16:18 than talking or can be heard Do you often feel tired/ No 02/02/24 16:18 fatigued/ sleepy during daytime? Has anyone observed you stop No 02/02/24 16:18 breathing during sleep? STOP Results Negative 02/02/24 16:18 QUESTION #5 FULL TEXT : Do you snore loudly (louder than talking or can be heard through closed doors)? 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 Specify any problems Hx of Preganancy in last 3 No 02/02/24 16:18 Months Nurse Filling Out Transfusion MGRIFFITH 02/02/24 16:18 & Questions: Date: 02/02/24 02/02/24 16:18 Time: 16:21 02/02/24 16:18 Patient unable to answer at this time (ie. confused, unrespo /Reproduction History /Reproductive History - telecommunications line mechanic: /Reproductive Hx- telecommunications line mechanic Hx Now No 02/02/24 16:18 Gestational Age (in weeks): EDC: Hx Hx Para Hx Section SAB No 02/02/24 16:18 Active Medications Active Medications: Current Medications Generic Name Dose Route Start Last Admin Trade Name Freq PRN Reason Stop Dose Admin Lactated Ringer's 1,000 mls @ 15 mls/hr 02/07/24 13:00 02/07/24 12:54 IV 15 mls/hr .Q48H MICHAEL Administration PFSH Medical History Wears glasses Restless legs Shortness of breath on exertion Former smoker Family hx of colon cancer Headache LUQ abdominal pain Colon cancer screening Health care maintenance Left shoulder pain Chronic back pain Acute back pain Generalized anxiety disorder with panic attacks Asthmatic bronchitis with exacerbation History of COVID-19 Alcohol use Anxiety High cholesterol Migraine headache History of hiatal hernia Gastric reflux Smoker History of echocardiogram History of stress test History of irregular heartbeat Carpal tunnel syndrome Seasonal allergies Asthma GERD (gastroesophageal reflux disease) Home Medications ?Medication ?Instructions ?Recorded ?Last Taken ?Type levonorgestrel 21 mcg/24 hr (up to 1 insert intrauterine ONCE bc 01/02/18 02/07/24 History 8 years) 52 mg intrauterine device (Mirena) fluticasone propionate 50 1 spray intranasal DAILY #16 grams 07/19/21 02/06/24 Rx mcg/actuation nasal spray,suspension (Flonase Allergy Relief) hydroxyzine HCl 25 mg tablet 25 mg PO TID PRN anxiety #90 tabs 12/05/22 Unknown Rx atorvastatin 40 mg tablet 40 mg PO QDAY cholesterol #90 tabs 01/27/23 02/06/24 Rx sertraline 50 mg tablet (Zoloft) 50 mg PO DAILY #90 tabs 12/20/23 02/07/24 Rx levalbuterol tartrate 45 2 puff inhalation Q4-6H PRN 12/29/23 Unknown Rx mcg/actuation aerosol inhaler shortness of breath or wheezing #15 grams omeprazole 40 mg capsule,delayed 40 mg PO QDAY GERD #90 caps 01/31/24 02/07/24 Rx release Allergy/AdvReac Type Severity Reaction Status Date / Time Iodinated Contrast Media Allergy Shortness Verified 02/07/24 12:47 of breath Opioids - Morphine Analogues AdvReac Severe Vomiting Verified 02/07/24 12:47 (narcotics) Family History Father COPD (chronic obstructive pulmonary disease) Anxiety Asthma Mother Obesity Sister Asthma Diabetes Grandmother Hypertension Heart disease Grandfather Colon cancer Cancer prostate and lukemia Surgical History History of carpal tunnel surgery of right wrist Hx of colonoscopy Hx of inguinal hernia repair History of carpal tunnel surgery of left wrist History of appendectomy History of nasal septoplasty History of tonsillectomy Social History (Updated 02/02/24 @ 08:39 by Michaela Richmond) household members: spouse current occupational status: employed Smoking Status: Former smoker alcohol intake: current alcohol intake frequency: holidays/special occasions only Alcohol type: wine substance use type: does not use eating out: other details: twice a month what type of physical activity do you participate in: other details: does yard work and house work Review of Systems (Anesthesia) ROS Narrative System reviewed and no additional complaints, except as documented. Physical Exam Resp Resp Narrative: Slight expiratory wheeze on end expiration. Patient took her own albuterol metered-dose inhaler. Lungs are now clear to auscultation. Auscultation: wheezes expiratory wheezes
--- NOTE | 2024-02-07 13:49 | H&P.OPEN ---
HPI - General HPI Narrative AIDA LEWIS, is a 44 F who presents for screening colonoscopy. The patient had her last colonoscopy over 10 years ago and it was normal. She denies abdominal pain but says she gets blood in her stool occasionally but does have hemorrhoids. Denies family history of colon cancer. [facility] Medical History Wears glasses Restless legs Shortness of breath on exertion Former smoker Family hx of colon cancer Headache LUQ abdominal pain Colon cancer screening Health care maintenance Left shoulder pain Chronic back pain Acute back pain Generalized anxiety disorder with panic attacks Asthmatic bronchitis with exacerbation History of COVID-19 Alcohol use Anxiety High cholesterol Migraine headache History of hiatal hernia Gastric reflux Smoker History of echocardiogram History of stress test History of irregular heartbeat Carpal tunnel syndrome Seasonal allergies Asthma GERD (gastroesophageal reflux disease) Home Medications ?Medication ?Instructions ?Recorded ?Last Taken ?Type levonorgestrel 21 mcg/24 hr (up to 1 insert intrauterine ONCE bc 01/02/18 02/07/24 History 8 years) 52 mg intrauterine device (Mirena) fluticasone propionate 50 1 spray intranasal DAILY #16 grams 07/19/21 02/06/24 Rx mcg/actuation nasal spray,suspension (Flonase Allergy Relief) hydroxyzine HCl 25 mg tablet 25 mg PO TID PRN anxiety #90 tabs 12/05/22 Unknown Rx atorvastatin 40 mg tablet 40 mg PO QDAY cholesterol #90 tabs 01/27/23 02/06/24 Rx sertraline 50 mg tablet (Zoloft) 50 mg PO DAILY #90 tabs 12/20/23 02/07/24 Rx levalbuterol tartrate 45 2 puff inhalation Q4-6H PRN 12/29/23 Unknown Rx mcg/actuation aerosol inhaler shortness of breath or wheezing #15 grams omeprazole 40 mg capsule,delayed 40 mg PO QDAY GERD #90 caps 01/31/24 02/07/24 Rx release Allergy/AdvReac Type Severity Reaction Status Date / Time Iodinated Contrast Media Allergy Shortness Verified 02/07/24 12:47 of breath Opioids - Morphine Analogues AdvReac Severe Vomiting Verified 02/07/24 12:47 (narcotics) Family History Father COPD (chronic obstructive pulmonary disease) Anxiety Asthma Mother Obesity Sister Asthma Diabetes Grandmother Hypertension Heart disease Grandfather Colon cancer Cancer prostate and lukemia Surgical History History of carpal tunnel surgery of right wrist Hx of colonoscopy Hx of inguinal hernia repair History of carpal tunnel surgery of left wrist History of appendectomy History of nasal septoplasty History of tonsillectomy Social History (Updated 02/02/24 @ 08:39 by Michaela Richmond) household members: spouse current occupational status: employed Smoking Status: Former smoker alcohol intake: current alcohol intake frequency: holidays/special occasions only Alcohol type: wine substance use type: does not use eating out: other details: twice a month what type of physical activity do you participate in: other details: does yard work and house work Past Medical/Surgical History Planned Operation Planned Operative Procedure(s): COLONOSCOPY Previous Hospitalizations/Surgeries HX Hospitalizations: No Any Problems With Anesthesia: No You/Your Family Experience Fever (Hyperthermia) With Anes: No Cholinesterase deficiency: No Cardiovascular Hx Hypertension: No Respiratory Hx Sleep Apnea: No Hx Respiratory Tract Infection/Cold (presently): No Do You Snore Loudly (louder than talking or can be heard): No Do You Often Feel Tired/ Fatigued/ Sleepy Dring Daytime?: No Has Anyone Observed You Stop Breathing During Sleep?: No Result (for STOP score): Negative Hx Smoking: Yes Smoking Status: Former smoker Gastrointestinal Difficulty Chewing/Swallowing: No Neurological Does patient have nerve stimulator: No Reproduction : No Miscellaneous Recent Exposure to Contagious Disease: No Allergies Iodinated Contrast Media Allergy (Verified 02/07/24 12:47) Shortness of breath Opioids - Morphine Analogues (narcotics) Adverse Reaction (Severe, Verified 02/07/24 12:47) Vomiting Discharge Is Pt Admitted From a Detention, or a Halfway: No Who Could Help: After D/C, Where Do you Plan to Go: Return Home Vital Signs Vital Signs Vital Signs: 02/07/24 12:48 02/07/24 12:48 02/07/24 13:15 Temperature 98.4 F 98.4 F Temperature Source Temporal Pulse Rate 79 79 Respiratory Rate 16 16 Respiratory Pattern Normal Blood Pressure 113/75 113/75 Blood Pressure Mean 87 Blood Pressure Source Monitor Blood Pressure Position Semi-Fowlers Blood Pressure Location Right Arm Pulse Ox 93 93 Oxygen Delivery Method Room Air Room Air Weight Weight: 176 lb 5.917 oz Body Mass Index (BMI) 31.2 Physical Exam Const alert and oriented x3 HEENT normocephalic Eyes PERRL Resp normal respiratory effort and normal air movement Cardio regular rate and regular rhythm GI soft to palpation, non-tender and non-distended Extremity normal to inspection Assessment & Plan Assessment/Plan (1) Encounter for screening for malignant neoplasm of colon: PLAN: I explained endoscopy in detail to the patient. I explained the risks including but not limited to stroke or heart attack with anesthesia, perforation of the GI tract, bleeding, infection. I explained that any of these could necessitate further emergency surgery. The patient understands and all questions were answered sufficiently. The patient wishes to proceed with procedure. Shubham Ledesma MD Pager: [facility] [address] [place] [address], [address] [place] [address] Office: Surgery Risks - Colonoscopy Risks Include but are not Limited To: Risks include but are not limited to: Bleeding, perforation requiring further surgery, inability to complete colonoscopy requiring barium enema.
--- NOTE | 2024-02-07 14:23 | OP.COLON_ITS ---
Patient Name: Marilin Maki Procedure Date: 02/07/2024 1:49 PM Date of : 1980 Age: 44 Procedure: Colonoscopy Indications: Screening for colorectal malignant neoplasm Providers: Shubham Ledesma MD Referring MD: Michelle Mcghee MD Medicines: Propofol per Anesthesia Patient Profile: This is a 44 year old female. Refer to note in patient chart for documentation of history and physical. Last Colonoscopy: more than 10 years ago. Complications: No immediate complications. Procedure: Pre-Anesthesia Assessment: - Prior to the procedure, a History and Physical was performed, and patient medications and allergies were reviewed. The patient's tolerance of previous anesthesia was also reviewed. The risks and benefits of the procedure and the sedation options and risks were discussed with the patient. All questions were answered, and informed consent was obtained. Prior Anticoagulants: The patient has taken no anticoagulant or antiplatelet agents. After reviewing the risks and benefits, the patient was deemed in satisfactory condition to undergo the procedure. After I obtained informed consent, the scope was passed under direct vision. Throughout the procedure, the patient's blood pressure, pulse, and oxygen saturations were monitored continuously. The Colonoscope was introduced through the anus and advanced to the cecum, identified by appendiceal orifice and ileocecal valve. The colonoscopy was performed without difficulty. The patient tolerated the procedure well. The quality of the bowel preparation was good. The ileocecal valve, appendiceal orifice, and rectum were photographed. Scope In: 2:11:54 PM Scope Withdrawal Time 0 hours 6 minutes 4 seconds Scope Out: 2:20:53 PM Total Procedure Duration Time 0 hours 8 minutes 59 seconds Findings: The entire examined colon appeared normal on direct and retroflexion views. Impression: - The entire examined colon is normal on direct and retroflexion views. - No specimens collected. Recommendation: - Discharge patient to home. - Resume previous diet. - Continue present medications. - Repeat colonoscopy in 10 years for screening purposes. Procedure Code(s): --- Professional --- 37970, Colonoscopy, flexible; diagnostic, including collection of specimen(s) by brushing or washing, when performed (separate procedure) Diagnosis Code(s): --- Professional --- Z12.11, Encounter for screening for malignant neoplasm of colon CPT copyright 2021 [employer]. All rights reserved. The codes documented in this report are preliminary and upon fabricating machine operator review may be revised to meet current compliance requirements. Shubham Ledesma MD 02/07/2024 2:23:01 PM This report has been signed electronically. Number of Addenda: 0 Note Initiated On: 02/07/2024 1:49 PM
--- NOTE | 2024-02-07 14:23 | OP.CCLET_ITS ---
02/07/2024 Michelle Mcghee MD [address] [place] [address] [place] [address] Re : Colonoscopy procedure for Marilin Maki Dear Dr. Mcghee This procedure was performed on Wednesday, February 07, 2024. My impressions and recommendations are as follows: Impressions : - The entire examined colon is normal on direct and retroflexion views. - No specimens collected. Recommendations : - Discharge patient to home. - Resume previous diet. - Continue present medications. - Repeat colonoscopy in 10 years for screening purposes. My findings are described in the full procedure note, which is enclosed. If I can be of further assistance, please feel free to contact me at Doctor phone number(s): , Work: . Sincerely, Shubham Ledesma MD 02/07/2024 2:23:01 PM This report has been signed electronically.
--- NOTE | 2024-02-07 14:29 | PCM.POST.ANE ---
Anesthesia: Postop Eval I Current Vital Signs Temperature: 99.7 F Pulse Rate: 82 Blood Pressure: 101/75 Respiratory Rate: 16 Pulse Ox: 100 Oxygen Delivery Method: Room Air Assessment Airway patent: Yes Spontaneous unlabored respirations: Yes Mental status: Awake and Calm nausea: No Vomiting: No Anesthesia Complication: No Fluid Hydration Crystalloid volume administer (ml): 500 Total IV fluid infused: 500 Progress Note Anesthesia document: Postop Eval 1 completed: Yes
--- NOTE | 2024-02-07 16:08 | PCM.POSTANE2 ---
Anesthesia Postop Eval I Sum Postop Eval Completion status Anesthesia document: Postop Eval 1 completed: Yes Anesthesia Postop Eval I Summary Anesthesia Postop Eval I Summary: Anesthesia Postop Eval I: Assessment Summary Airway patent Yes 02/07/24 14:30 [email or web address] Spontaneous unlabored Yes 02/07/24 14:30 [email or web address] respirations Mental status Awake,Calm 02/07/24 14:30 [email or web address] nausea No 02/07/24 14:30 [email or web address] Vomiting No 02/07/24 14:30 [email or web address] Anesthesia Postop Eval I: Fluid Summary Crystalloid volume administer 500 02/07/24 14:30 [email or web address] (ml) Colloids volume administered ( ml) Blood Product volume administered (ml) Total IV fluid infused 500 02/07/24 14:30 [email or web address] Anesthesia Postop Eval I: Summary Notes Anesthesia Complication No 02/07/24 14:30 [email or web address] Anesthesia Complication Comment: Post-operative progress note Anesthesia: Postop Eval II Evaluation Mental status: Awake and Calm Pain Level: 0 nausea: No Vomiting: No Complications Anesthesia Complication: No
== END 2024-02-07 14:56 | disposition home or self-care (01) ==
LOC: EN 12:28 → AC 12:28
PROVIDERS: Anesthesiology; PCP Internal Medicine; Referring Provider Internal Medicine; Visit Provider Surgery
PROC: 0DJD8ZZ Inspection of Lower Intestinal Tract, Via Natural or Artificial Opening Endoscopic (ICD-10-PCS; CPT 45378; principal; 2024-02-07 13:25)
DX: Z12.11 Encounter for screening for malignant neoplasm of colon (principal); K64.9 Unspecified hemorrhoids; Z80.0 Family history of malignant neoplasm of digestive organs; Z87.891 Personal history of nicotine dependence; E78.00 Pure hypercholesterolemia, unspecified; J45.909 Unspecified asthma, uncomplicated; Z79.51 Long term (current) use of inhaled steroids; F41.1 Generalized anxiety disorder; Z79.899 Other long term (current) drug therapy; Z90.49 Acquired absence of other specified parts of digestive tract
CPT/HCPCS: 45378; 81025; J7120; J2405

== ENCOUNTER → 2024-03-08 | Outpatient (CLI) | payer OTHER, SELFPAY ==
--- NOTE | 2024-03-08 14:17 | BI_ITS ---
MAMMOGRAPHY - BILATERAL SCREENING REASON FOR EXAM: Female, 44 years old. Routine annual screening examination. PERTINENT HISTORY: Non-contributory. TECHNIQUE: Digital bilateral breast zulema (3D mammographic acquisition) in the CC and MLO projections. 2-D mediolateral oblique (MLO) and craniocaudad (CC) views of both breasts were obtained. CAD: Full Field Digital Mammography with Computer Added Detection was performed. COMPARISON: Comparison is made with prior study November 16, 2022 and May 04, 2020. FINDINGS: Breast Composition: The breasts are heterogeneously dense, which may obscure small masses. There are no dominant masses or suspicious calcifications. Stable bilateral fat containing axillary lymph nodes. No other significant abnormalities are identified. There has been no significant change since the prior study. BI/SCRN MAMM (CAD)W/ZULEMA BILAT IMPRESSION: Stable bilateral screening mammogram. Yearly follow-up mammogram recommended. (A) ASSESSMENT CATEGORY: BIRADS Category 2: Benign. A letter regarding these results will be sent to the patient by the facility within 30 days. Approximately 10% of breast cancers are not detected by mammography. A normal mammogram should not delay biopsy of a clinically suspicious abnormality. [id number] Electronically Signed: Arvind Moore MD at 14:51 EDT ,
== END | disposition home or self-care (01) ==
LOC: OPBI 14:16
PROVIDERS: PCP Internal Medicine; Referring Provider Internal Medicine; Visit Provider Internal Medicine
DX: Z12.31 Encounter for screening mammogram for malignant neoplasm of breast (principal)
CPT/HCPCS: 77063; 77067

== ENCOUNTER → 2024-05-29 | Outpatient (CLI) | payer OTHER, SELFPAY ==
--- NOTE | 2024-05-29 07:26 | CT_ITS ---
INDICATION: Left upper quadrant Pain EXAMINATION: CT ABDOMEN WITHOUT CONTRAST - CT Abdomen W/O Contrast Injection TECHNIQUE: Multiple axial images were obtained of the abdomen without oral or IV contrast. The protocol utilizes one or more of the following dose reduction techniques: automated exposure control, adjustment of mA and/or kV according to patient size,and/or use of iterative reconstruction technique. IV Contrast dosage and agent: None. Oral contrast: None. RADIATION DOSAGE (If Supplied By Facility): CTDIvol = ( 13.09 ) mGy, DLP = ( 447.97 ) mGycm COMPARISON: No relevant prior comparison study available FINDINGS: LOWER CHEST: Lung bases are clear. No cardiomegaly or pericardial effusion. The lack of intravenous contrast limits evaluation of solid visceral organs. LIVER: The liver is mildly low in attenuation consistent with fatty infiltration. There is hepatomegaly. GALLBLADDER AND BILIARY TREE: No calcified gallstones. No gallbladder distension or wall edema. No intra- or extrahepatic biliary ductal dilation. PANCREAS: No focal cystic or solid mass. SPLEEN: There is a splenic granuloma visualized. ADRENAL GLANDS: No nodules. KIDNEYS AND URETERS: Normal renal size and position. No hydronephrosis or nephrolithiasis. PERITONEUM: No ascites or free air. No other fluid collection. BOWEL: There is a small hiatal hernia. No stomach or bowel distension. No focal inflammatory change. LYMPH NODES: No enlarged mesenteric or retroperitoneal lymph nodes. VESSELS: Aorta is non-dilated. ABDOMINAL WALL: No discrete abdominal wall hernia. BONES: No lytic or blastic abnormality. CT/Abdomen without IV Contrast IMPRESSION: Hiatal hernia. Fatty infiltration of the liver associated with hepatomegaly. Electronically Signed: Lisa Ferguson MD at 11:48 EDT ,
== END | disposition home or self-care (01) ==
PROVIDERS: PCP Internal Medicine; Referring Provider Internal Medicine; Visit Provider Internal Medicine
DX: R10.12 Left upper quadrant pain (principal)
CPT/HCPCS: 74150

== ENCOUNTER → 2024-06-17 | Outpatient (CLI) | payer OTHER, SELFPAY ==
[2024-06-17 14:43] LABS: Absolute Lymphocyte Count 1.53 X10^3/uL (0.83-4.51); Absolute Neutrophil Count 3.1 X10^3/uL (2.0-7.7); Basophil# 0.01 X10^3/uL; Basophil% 0.2 % (0-1); Eosinophil# 0.36 X10^3/uL; Eosinophils% 6.7 % (0-5); Hematocrit 39.1 % (37-47); Hemoglobin 13.2 g/dL (12.0-15.0); Lymphocyte # 1.53 X10^3/ul (0.83-4.51); Lymphocyte % 28.4 % (19-41); Mean Corp Hgb Conc 33.8 g/dL (32-36); Mean Corpuscular Hgb 33.5 pg (27.0-32.0); Mean Corpuscular Volume 99.2 fL (81-99); Mean Platelet Vol. 9.6 fl (6.2-12.0); Monocyte# 0.41 X10^3/uL; Monocyte% 7.6 % (0-10); NRBC Flagged by Analyzer 0 % (0-5); Neutrophil # 3.06 X10^3/uL (2.7-7.7); Neutrophil % 56.7 % (47-70); Platelet Count 282 K/mm3 (150-450); RBC Distribution Width CV 12.4 % (11.6-14.6); Red Blood Count 3.94 M/mm3 (4.2-5.4); White Blood Count 5.4 K/mm3 (4.4-11.0)
[2024-06-17 15:21] LABS: ALB/GLOB Ratio 1.1 RATIO (0.9-2.4); AST(SGOT) 17 U/L (15-37); Alanine Aminotransfer ALT/SGPT 29 U/L (13-56); Albumin, Serum 3.7 g/dL (3.2-5.0); Alkaline Phosphatase 80 U/L (45-117); Anion Gap 6 (5-15); BUN 16 mg/dL (7-18); BUN/Creat Ratio 19.8 RATIO (10-20); Calcium,Total 9.1 mg/dL (8.5-10.1); Chloride 106 mmol/L (98-107); Creatinine, Serum 0.81 mg/dL (0.55-1.02); EST Glomerular Filtration Rate 81 mL/min (>60); Est Glom Filt Rate - Afr Amer 98 mL/min (>60); Globulin 3.3 g/dL (2.2-4.2); Glucose 103 mg/dL (74-106); Lipase 32 U/L (13-75); Potassium 4.1 mmol/L (3.5-5.1); Sodium Level 138 mmol/L (136-145)
== END | disposition home or self-care (01) ==
LOC: LAB 14:04
PROVIDERS: PCP Internal Medicine; Referring Provider Student in an Organized Health Care Education/Training Program; Visit Provider Student in an Organized Health Care Education/Training Program
DX: R10.12 Left upper quadrant pain (principal)
CPT/HCPCS: 36415; 80053; 83690; 85025

== ENCOUNTER 2024-07-31 05:57 | Day surgery (SDC) | payer OTHER, SELFPAY ==
[2024-07-31] VITALS (8 sets, daily range): BP systolic 85–123; BP diastolic 57–83; PULSE 76–81; RESP 16–18; TEMP 36.7–36.9; O2SAT 92–99; BMI 33.2
--- NOTE | 2024-07-31 06:38 | PCM.HP.STD ---
HPI - General General Date of Admission: 07/31/24 Date of Service: 07/31/24 Chief Complaint: abdominal pain HPI Narrative AIDA LEWIS, is a 44 F who presents to the office today for establishment with [facility]. Pt has a PMHx of fatty liver, hiatal hernia, GERD, and asthma. She has been having LUQ epigastric pain for 6 months now. The pain is intermittent and burning in nature. She has an EGD years ago and has been on a PPI since. She notices the pain is worse after eating and nothing relieves it. She still has her gallbladder. She has had no medication changes, diet changes or major life events in the last 6 months. She denies n/v, heartburn, or melena. Pt also has constipation alternating with diarrhea. Last colonoscopy in January 2024 with normal findings and recommendation for repeat in 10 years. She does not take any medications for either constipation or diarrhea. CT abdomen/pelvis from 05/2024 noting a hiatal hernia and fatty liver Colonoscopy 6..24; - The entire examined colon is normal on direct and retroflexion views. - No specimens collected. [facility] Medical History (Updated 07/31/24 @ 06:[address] Adamson Friend, DO) Epigastric abdominal pain Contraceptive management Wears glasses Restless legs Shortness of breath on exertion Former smoker Family hx of colon cancer Headache LUQ abdominal pain Colon cancer screening Health care maintenance Left shoulder pain Chronic back pain Acute back pain Generalized anxiety disorder with panic attacks Asthmatic bronchitis with exacerbation History of COVID-19 Alcohol use Anxiety High cholesterol Migraine headache History of hiatal hernia Gastric reflux History of echocardiogram History of stress test Carpal tunnel syndrome Seasonal allergies Asthma GERD (gastroesophageal reflux disease) Home Medications ?Medication ?Instructions ?Recorded ?Last Taken ?Type levonorgestrel (Mirena) 1 insert intrauterine ONCE bc 01/02/18 07/30/24 History fluticasone propionate 50 1 spray intranasal DAILY #16 grams 07/19/21 07/30/24 Rx mcg/actuation nasal spray,suspension (Flonase Allergy Relief) hydroxyzine HCl 25 mg tablet 25 mg PO TID PRN anxiety #90 tabs 12/05/22 Unknown Rx omeprazole 40 mg capsule,delayed 40 mg PO QDAY GERD #90 caps 01/31/24 07/31/24 Rx release levalbuterol tartrate 45 2 puff inhalation Q4-6H PRN 05/06/24 Unknown Rx mcg/actuation aerosol inhaler shortness of breath or wheezing 3 months #15 grams sertraline 50 mg tablet (Zoloft) 50 mg PO DAILY #90 tabs 07/17/24 07/30/24 Rx Allergy/AdvReac Type Severity Reaction Status Date / Time Iodinated Contrast Media Allergy Shortness Verified 07/29/24 15:07 of breath Opioids - Morphine Analogues AdvReac Severe Vomiting Verified 07/29/24 15:07 (narcotics) Family History Father COPD (chronic obstructive pulmonary disease) Anxiety Asthma Mother Obesity Sister Asthma Diabetes Grandmother Hypertension Heart disease Grandfather Colon cancer Cancer prostate and lukemia Surgical History History of carpal tunnel surgery of right wrist Hx of colonoscopy Hx of inguinal hernia repair History of carpal tunnel surgery of left wrist History of appendectomy History of nasal septoplasty History of tonsillectomy Social History household members: spouse and children number of children: 4 current occupational status: employed current occupation: [employer] sexually active: Yes Smoking Status: Former smoker alcohol intake: current alcohol intake frequency: holidays/special occasions only Alcohol type: wine substance use type: does not use eating out: other details: twice a month what type of physical activity do you participate in: other details: does yard work and house work seatbelt use: always do you feel safe at home: Yes Vital Signs Vital Signs Vital Signs: 07/31/24 06:30 07/31/24 06:30 Temperature 98.0 F Temperature Source Temporal Pulse Rate 76 Respiratory Rate 18 Respiratory Pattern Normal Blood Pressure 123/83 H Blood Pressure Mean 96 Blood Pressure Source Monitor Blood Pressure Position Sitting Blood Pressure Location Right Arm Pulse Ox 99 Oxygen Delivery Method Room Air Weight Weight: 187 lb 6.287 oz Body Mass Index (BMI) 33.2 Physical Exam Const alert and oriented x3 HEENT normocephalic Eyes PERRL Resp normal respiratory effort and normal air movement Cardio regular rate and regular rhythm GI soft to palpation, non-tender and non-distended Extremity normal to inspection Assessment & Plan Assessment/Plan (1) Epigastric abdominal pain: (2) Alternating constipation and diarrhea: PLAN: Plan Assessment and Plan Assessment and Plan (1) LUQ abdominal pain: Status: Chronic (2) Fatty liver: Status: Acute (3) Alternating constipation and diarrhea: Status: Acute Plan: This ia 44 yo female here today for establishment for LUQ pain. This has been ongoing for 6 months now. She has had EGD in the remote past and has been on PPI since. She will need to undergo upper endoscopy to evaluate for GERD, ulcer or gastritis. She is agreeable to this plan. I will also order blood work with CBC, CMP and lipase to rule out pancreatic etiology. She has constipation alternating with diarrhea with a normal colonoscopy last month. I will order stool testing to rule out inflammation, infection or EPI. CT abdomen/pelvis in 2023 indicated fatty liver. Will order liver elastography for baseline stiffness. Recommended vitamin E, coffee, weight loss and exercise. -EGD -CBC, CMP, lipase -Stool tests -liver elastography -f/u in 3 months Orders: Orders CBC W/Diff, Automated Today R10.12 - Left upper quadrant pain Comprehensive Metabolic Profil Today R10.12 - Left upper quadrant pain Lipase Today R10.12 - Left upper quadrant pain Pancreatic Elastase, Fecal Today R10.12 - Left upper quadrant pain Stool Lactoferrin/WBC Today K58.9 - Irritable bowel syndrome, unspecified, R10.12 - Left upper quadrant pain Calprotectin, Stool Today R10.12 - Left upper quadrant pain ABD Limited w/ Elastography Today K76.0 - Fatty (change of) liver, not elsewhere classified
[2024-07-31 06:41] LABS: Internal QC Validated? YES +Cl - CLEAR BKGD
--- NOTE | 2024-07-31 06:41 | PCM.PRE.AN2 ---
ASA Classification* ASA Classification ASA Classification: 2 Assessment & Plan Anesthesia* Anesthesia Assessment Anesthesia Assessment: Discussed sedation and/or anesthesia options, risks, benefits, and alternatives with patient/parents/legal guardian/POA. Questions invited. The patient/parents/legal guardian/POA seems to understand and agrees to proceed with anesthesia plan. Reviewed the physical assessment, medical history, allergy history and patient home medications list prior to surgery/procedure/anesthetic and documented any changes. Performed airway and anesthesia risk assessments. Anesthesia Type Anesthesia Type: MAC History Source History Obtained from:: Patient and Chart Anesthesia Focused Assessment* Temperature: 98.0 F Pulse Rate: 76 Blood Pressure: 123/83 Respiratory Rate: 18 Pulse Ox: 99 Airway Assessment Mouth opens: >3 cm Mallampati Score: I Neck Range of motion (ROM): Full ROM Focused Labs Anesthesia Preop lab: CBC WBC 5.4 K/mm3 (4.4-11.0) 06/17/24 14:07 RBC 3.94 M/mm3 (4.2-5.4) L 06/17/24 14:07 Hgb 13.2 g/dL (12.0-15.0) 06/17/24 14:07 Hct 39.1 % (37-47) 06/17/24 14:07 Plt Count 282 K/mm3 (150-450) 06/17/24 14:07 CHEMISTRY Potassium 4.1 mmol/L (3.5-5.1) 06/17/24 14:07 Sodium 138 mmol/L (136-145) 06/17/24 14:07 BUN 16 mg/dL (7-18) 06/17/24 14:07 Creatinine 0.81 mg/dL (0.55-1.02) 06/17/24 14:07 Glucose 103 mg/dL (74-106) 06/17/24 14:07 TSH 1.78 uIU/mL (0.358-3.74) 09/01/22 15:27 COAG Urine Test Negative Negative 07/31/24 06:30 Pre-Assessment Diagnosis/Proposed Procedure Planned Operative Procedure(s): EGD Anesthesia History Anesthesia History - pediatric hospitalist: Anesthesia History - pediatric hospitalist Hx Hospitalization No 07/29/24 12:01 Any Problems With Anesthesia No 07/29/24 12:01 Cholinesterase deficiency No 07/29/24 12:01 You/Your Family Experience No 07/29/24 12:01 fever (hyperthermia) with Relationship Recent Exposure to Contagious No 07/31/24 06:30 Disease Does patient have nerve No 07/29/24 12:01 stimulator Patient instructed to have device shut off --Does patient have Pacemaker No 07/31/24 06:30 or ICD? When Was Last Pacemaker Check QUESTION #4 FULL TEXT: You/Your Family Experience fever (hyperthermia) with Anesthesia Last Oral Intake Last Oral intake: Last Oral Intake NPO since 22:00 07/31/24 06:30 Meds taken in AM with sips of Yes 07/31/24 06:30 water? Meds patient instructed to OMEPRAZOLE 07/31/24 06:30 take am of surgery PONV PONV - pediatric hospitalist: PONV - pediatric hospitalist Female Yes 07/29/24 12:01 HX of Motion Sickness Yes 07/29/24 12:01 HX of N/V After Surgery No 07/29/24 12:01 Non-Smoker Yes 07/29/24 12:01 Duration of Surgery greater No 07/29/24 12:01 than 60 minutes Number of Risk Factors 3 07/29/24 12:01 PONV Score Moderate Risk 07/29/24 12:01 Height & Weight Height & Weight: Anesthesia: Height & Weight Height 5 ft 3 in 07/31/24 06:30 Weight: 85 kg 07/31/24 06:30 Body Mass Index (BMI) 33.2 07/31/24 06:30 Respiratory Assessment Respiratory Assessment - pediatric hospitalist: Respiratory Tract Infection Hx - pediatric hospitalist Hx Respiratory Tract Infection No 07/29/24 12:01 STOP Sleep Apnea STOP Sleep Apnea - pediatric hospitalist: STOP Sleep Apnea - pediatric hospitalist Hx Hypertension No 07/29/24 12:01 Hx Sleep Apnea No 07/29/24 12:01 CPAP BIPAP Do you snore loudly (louder No 07/29/24 12:01 than talking or can be heard Do you often feel tired/ No 07/29/24 12:01 fatigued/ sleepy during daytime? Has anyone observed you stop No 07/29/24 12:01 breathing during sleep? STOP Results Negative 07/29/24 12:01 QUESTION #5 FULL TEXT : Do you snore loudly (louder than talking or can be heard through closed doors)? Tobacco Use History Tobacco Use History - pediatric hospitalist: Tobacco Use History - pediatric hospitalist Tobacco Use Smoking Status Former smoker 07/29/24 12:01 Hx Tobacco Use Yes 07/29/24 12:01 Years Smoking Packs Smoked per Day Smoking Cessation Date was Yes - quit smoking within 15 07/29/24 12:01 within the last 15 years years Hx Smoking Cessation Date 08/14/22 07/29/24 12:01 Hx Smoking Cessation Yes 07/29/24 12:01 Counseling Hematologic Medial History Hematologic Hx - pediatric hospitalist: Hematologic Medical Hx - shop lead Hx of Blood Transfusion No 07/29/24 12:01 Hx of Transfusion in last 3 No 07/29/24 12:01 Months Date of Last Transfusion (if within last 3 months) Ever experience any problems No 07/29/24 12:01 with transfusion(s)? Specify any problems Hx of Preganancy in last 3 No 07/29/24 12:01 Months Nurse Filling Out Transfusion DSCHRIBER 07/29/24 12:01 & Questions: Date: 07/29/24 07/29/24 12:01 Time: 12:02 07/29/24 12:01 Patient unable to answer at this time (ie. confused, unrespo /Reproduction History /Reproductive History - pediatric hospitalist: /Reproductive Hx- pediatric hospitalist Hx Now Gestational Age (in weeks): EDC: Hx Hx Para Hx Section SAB No 07/29/24 14:53 PFSH Medical History Epigastric abdominal pain Contraceptive management Wears glasses Restless legs Shortness of breath on exertion Former smoker Family hx of colon cancer Headache LUQ abdominal pain Colon cancer screening Health care maintenance Left shoulder pain Chronic back pain Acute back pain Generalized anxiety disorder with panic attacks Asthmatic bronchitis with exacerbation History of COVID-19 Alcohol use Anxiety High cholesterol Migraine headache History of hiatal hernia Gastric reflux History of echocardiogram History of stress test Carpal tunnel syndrome Seasonal allergies Asthma GERD (gastroesophageal reflux disease) Home Medications ?Medication ?Instructions ?Recorded ?Last Taken ?Type levonorgestrel (Mirena) 1 insert intrauterine ONCE bc 01/02/18 07/30/24 History fluticasone propionate 50 1 spray intranasal DAILY #16 grams 07/19/21 07/30/24 Rx mcg/actuation nasal spray,suspension (Flonase Allergy Relief) hydroxyzine HCl 25 mg tablet 25 mg PO TID PRN anxiety #90 tabs 12/05/22 Unknown Rx omeprazole 40 mg capsule,delayed 40 mg PO QDAY GERD #90 caps 01/31/24 07/31/24 Rx release levalbuterol tartrate 45 2 puff inhalation Q4-6H PRN 05/06/24 Unknown Rx mcg/actuation aerosol inhaler shortness of breath or wheezing 3 months #15 grams sertraline 50 mg tablet (Zoloft) 50 mg PO DAILY #90 tabs 07/17/24 07/30/24 Rx Allergy/AdvReac Type Severity Reaction Status Date / Time Iodinated Contrast Media Allergy Shortness Verified 07/29/24 15:07 of breath Opioids - Morphine Analogues AdvReac Severe Vomiting Verified 07/29/24 15:07 (narcotics) Family History Father COPD (chronic obstructive pulmonary disease) Anxiety Asthma Mother Obesity Sister Asthma Diabetes Grandmother Hypertension Heart disease Grandfather Colon cancer Cancer prostate and lukemia Surgical History History of carpal tunnel surgery of right wrist Hx of colonoscopy Hx of inguinal hernia repair History of carpal tunnel surgery of left wrist History of appendectomy History of nasal septoplasty History of tonsillectomy Social History household members: spouse and children number of children: 4 current occupational status: employed current occupation: [employer] sexually active: Yes Smoking Status: Former smoker alcohol intake: current alcohol intake frequency: holidays/special occasions only Alcohol type: wine substance use type: does not use eating out: other details: twice a month what type of physical activity do you participate in: other details: does yard work and house work seatbelt use: always do you feel safe at home: Yes Review of Systems (Anesthesia) ROS Narrative System reviewed and no additional complaints, except as documented.
[2024-07-31 06:42] LABS: Pregnancy, Urine Negative Negative
--- NOTE | 2024-07-31 07:00 | IMM_PTH ---
PATIENT: AIDA LEWIS LOC: [facility] U#:[id number] AGE/SX: 44/F ROOM: RE07/31/[address]: Dr. Juan Diego Franco DO : 1980 BED: DIS: 07/31/2024 SPEC #: [id number] RECD: 07/31/24 11:23 STATUS: PELON REQ #: [id number] CHRISTINE: 07/31/24 07:[address]: Juan Diego Franco DEPT: IMMUNOHISTOCHEMISTRY RECD BY: Richar Pratt ENTERED: 07/31/24 11:24 SP TYPE: IMMUNO OTHR DR: Dr. Michelle Mcghee MD Tissues: A - Gastric mucous membrane Procedures: H Pylori (initial) PHYSICIAN & INSTITUTION [place] [id number] SPECIMEN INFORMATION: Tissue Source: A- Gastric antrum biopsy Clinical Info: Left upper quadrant abdominal pain, fatty liver, alternating constipation and diarrhea Specimen Number: [id number] CPT code: 16605 METHODOLOGY: Deparaffinized sections of prefer/formalin-fixed tissue or PAP/DQ stained slides are incubated with monoclonal/polyclonal antibodies/oligonucleotide probes. Localization is made via biotin free immunoperoxidase method. Appropriate controls are performed and reacted as expected. Results on target cell population are indicated in the following table: RESULTS: ANTIBODY / CLONE RESULT Block A H Pylori (polyclonal) negative These tests were developed and their performance characteristics determined by [facility]. They may not have been cleared or approved by the U.S. Food and Drug Administration. The FDA has determined that such clearance or approval is not necessary. The above immunohistochemical/dualISH markers are ordered and reviewed by the Pathologist. INTERPRETATION: A. Gastric antrum, biopsy: Negative for Helicobacter pylori organisms. 08/01/2024
--- NOTE | 2024-07-31 07:00 | EGD_PTH ---
PATIENT: AIDA LEWIS LOC: [facility] U#:[id number] AGE/SX: 44/F ROOM: RE07/31/[address]: Dr. Juan Diego Franco DO : 1980 BED: DIS: 07/31/2024 SPEC #: [id number] RECD: 07/31/24 07:27 STATUS: PELON BENI #: [id number] CHRISTINE: 07/31/24 07:[address]: Juan Diego Franco DEPT: SURGICAL PATHOLOGY RECD BY: Eduardo Jesus ENTERED: 07/31/24 11:25 SP TYPE: EGD BIOPSY DAKOTAH DR: Dr. Michelle Mcghee MD Tissues: A - Gastric mucous membrane B - Duodenum, NOS C - Esophagus, NOS Procedures: Special Stain Group I Surgery Specimen Level IV Alcian Blue/PAS (control) HEADER OPERATION: EGD biopsy PRE-OP DIAGNOSIS: Left upper quadrant abdominal pain, fatty liver, alternating constipation and diarrhea TISSUE SUBMITTED: A- Gastric antrum biopsy, B- Duodenum biopsy, C- Distal esophagus biopsy MICROSCOPIC DIAGNOSIS A. Gastric antrum, biopsy: Mild gastritis. See microscopic description and comment. B. Duodenum, biopsy: Fragments of duodenal mucosa, no pathologic diagnosis. C. Distal esophagus, biopsy: Fragments of gastroesophageal mucosa with chronic inflammation. Intestinal metaplasia (goblet cell metaplasia) not identified. See comment. 08/01/2024 COMMENT A. The results of immunohistochemistry for Helicobacter pylori will be reported separately ([id number]). C. Alcian blue/PAS stain with matched control is used in the evaluation of the specimen. MICROSCOPIC DESCRIPTION Slides are reviewed. A. The specimen shows fragments of gastric mucosa with chronic inflammatory cell infiltrates in the lamina propria consisting of lymphocytes and plasma cells, consistent with mild chronic gastritis. GROSS DESCRIPTION A. Received in fixative is one container labeled with the patient's name and designated Gastric antrum biopsy. The specimen consists of two irregular fragments of light hayes soft tissue that in aggregate measure 0.8 x 0.3 x 0.1 cm. The specimen is totally submitted in one cassette. B. Received in fixative is one container labeled with the patient's name and designated Duodenum biopsy. The specimen consists of two irregular fragments of light hayes soft tissue that in aggregate measure 1.0 x 0.4 x 0.1 cm. The specimen is totally submitted in one cassette. C. Received in fixative is one container labeled with the patient's name and designated Distal esophagus biopsy. The specimen consists of multiple irregular fragments of light hayes soft tissue that in aggregate measure 0.8 x 0.4 x 0.1 cm. The specimen is totally submitted in one cassette. SJ.mr 07/31/2024 TC:3 CPT:[id number]
--- NOTE | 2024-07-31 07:06 | PCM.POST.ANE ---
Anesthesia: Postop Eval I Current Vital Signs Temperature: 98.5 F Pulse Rate: 78 Blood Pressure: 101/57 Respiratory Rate: 16 Pulse Ox: 93 Oxygen Delivery Method: Room Air Assessment Airway patent: Yes Spontaneous unlabored respirations: Yes Mental status: Asleep nausea: No Vomiting: No Anesthesia Complication: No Fluid Hydration Crystalloid volume administer (ml): 30 Total IV fluid infused: 30 Progress Note Anesthesia document: Postop Eval 1 completed: Yes
--- NOTE | 2024-07-31 07:09 | OP.CCLET_ITS ---
07/31/2024 Michelle Mcghee MD [address] [place] [address] [place] [address] Re : Upper GI endoscopy procedure for Marilin Maki Dear Dr. Mcghee This procedure was performed on Wednesday, July 31, 2024. My impressions and recommendations are as follows: Impressions : - Z-line irregular, 39 cm from the incisors. Biopsied. - Chronic gastritis. Biopsied. - Erythematous duodenopathy. Biopsied. Recommendations : - Discharge patient to home. - Resume previous diet. - Continue present medications. - Await pathology results. My findings are described in the full procedure note, which is enclosed. If I can be of further assistance, please feel free to contact me at . Sincerely, Juan Diego Franco, 07/31/2024 7:08:04 AM This report has been signed electronically.
--- NOTE | 2024-07-31 07:09 | OP.EGD_ITS ---
Patient Name: Marilin Maki Procedure Date: 07/31/2024 6:26 AM Date of : 1980 Age: 44 Procedure: Upper GI endoscopy Indications: Epigastric abdominal pain, Functional Dyspepsia Providers: Juan Diego Franco DO Referring MD: Michelle Mcghee MD Medicines: Monitored Anesthesia Care Patient Profile: This is a 44 year old female. Refer to note in patient chart for documentation of history and physical. Patient has symptoms of dysphagia with both liquids and solids. Complications: No immediate complications. Procedure: Pre-Anesthesia Assessment: - Prior to the procedure, a History and Physical was performed, and patient medications and allergies were reviewed. The patient is competent. The risks and benefits of the procedure and the sedation options and risks were discussed with the patient. All questions were answered and informed consent was obtained. Patient identification and proposed procedure were verified by the physician in the pre-procedure area. Mental Status Examination: alert and oriented. Airway Examination: normal oropharyngeal airway and neck mobility. Respiratory Examination: clear to auscultation. CV Examination: normal. Prophylactic Antibiotics: The patient does not require prophylactic antibiotics. Prior Anticoagulants: The patient has taken no anticoagulant or antiplatelet agents except for NSAID medication. ASA Grade Assessment: II - A patient with mild systemic disease. After reviewing the risks and benefits, the patient was deemed in satisfactory condition to undergo the procedure. The anesthesia plan was to use monitored anesthesia care (MAC). Immediately prior to administration of medications, the patient was re-assessed for adequacy to receive sedatives. The heart rate, respiratory rate, oxygen saturations, blood pressure, adequacy of pulmonary ventilation, and response to care were monitored throughout the procedure. The physical status of the patient was re-assessed after the procedure. After obtaining informed consent, the endoscope was passed under direct vision. Throughout the procedure, the patient's blood pressure, pulse, and oxygen saturations were monitored continuously. The Endoscope was introduced through the mouth, and advanced to the second part of duodenum. The upper GI endoscopy was accomplished without difficulty. The patient tolerated the procedure well. Scope In: 6:54:05 AM Scope Out: 6:59:44 AM Total Procedure Duration Time 0 hours 5 minutes 39 seconds Findings: The Z-line was irregular and was found 39 cm from the incisors. Biopsies were taken with a cold forceps for histology. Verification of patient identification for the specimen was done. Estimated blood loss was minimal. Patchy mild inflammation characterized by erythema was found in the gastric antrum. Biopsies were taken with a cold forceps for histology. Verification of patient identification for the specimen was done. Biopsies were taken with a cold forceps for Helicobacter pylori testing. Verification of patient identification for the specimen was done. Estimated blood loss was minimal. Patchy mildly erythematous mucosa without active bleeding and with no stigmata of bleeding was found in the duodenal bulb. Biopsies were taken with a cold forceps for histology. Verification of patient identification for the specimen was done. Estimated blood loss was minimal. A small hiatal hernia was present. Impression: - Z-line irregular, 39 cm from the incisors. Biopsied. - Chronic gastritis. Biopsied. - Erythematous duodenopathy. Biopsied. Recommendation: - Discharge patient to home. - Resume previous diet. - Continue present medications. - Await pathology results. Procedure Code(s): --- Professional --- 64725, Esophagogastroduodenoscopy, flexible, transoral; with biopsy, single or multiple CPT copyright 2021 [employer]. All rights reserved. The codes documented in this report are preliminary and upon freight coordinator review may be revised to meet current compliance requirements. Juan Diego Franco DO 07/31/2024 7:08:04 AM This report has been signed electronically. Number of Addenda: 0 Note Initiated On: 07/31/2024 6:26 AM
--- NOTE | 2024-07-31 08:34 | PCM.POSTANE2 ---
Anesthesia Postop Eval I Sum Postop Eval Completion status Anesthesia document: Postop Eval 1 completed: Yes Anesthesia Postop Eval I Summary Anesthesia Postop Eval I Summary: Anesthesia Postop Eval I: Assessment Summary Airway patent Yes 07/31/24 07:07 [email or web address] Spontaneous unlabored Yes 07/31/24 07:07 [email or web address] respirations Mental status Asleep 07/31/24 07:07 [email or web address] nausea No 07/31/24 07:07 [email or web address] Vomiting No 07/31/24 07:07 [email or web address] Anesthesia Postop Eval I: Fluid Summary Crystalloid volume administer 30 07/31/24 07:07 [email or web address] (ml) Colloids volume administered ( ml) Blood Product volume administered (ml) Total IV fluid infused 30 07/31/24 07:07 [email or web address] Anesthesia Postop Eval I: Summary Notes Anesthesia Complication No 07/31/24 07:07 [email or web address] Anesthesia Complication Comment: Post-operative progress note Anesthesia: Postop Eval II Evaluation Mental status: Awake Pain Level: 0 nausea: No Vomiting: No
== END 2024-07-31 07:36 | disposition home or self-care (01) ==
LOC: EN 05:58 → AC 06:00
PROVIDERS: Anesthesiology; PCP Internal Medicine; Referring Provider Internal Medicine; Visit Provider Internal Medicine Gastroenterology
PROC: 0DJ08ZZ Inspection of Upper Intestinal Tract, Via Natural or Artificial Opening Endoscopic (ICD-10-PCS; CPT 43235; principal; 2024-07-31 06:55)
DX: K22.70 Barrett's esophagus without dysplasia (principal); K59.00 Constipation, unspecified; Z80.0 Family history of malignant neoplasm of digestive organs; K29.50 Unspecified chronic gastritis without bleeding; R19.7 Diarrhea, unspecified; K76.0 Fatty (change of) liver, not elsewhere classified; Z87.891 Personal history of nicotine dependence; K21.00 Gastro-esophageal reflux disease with esophagitis, without bleeding; J45.909 Unspecified asthma, uncomplicated; E78.00 Pure hypercholesterolemia, unspecified; R10.12 Left upper quadrant pain; K58.9 Irritable bowel syndrome, unspecified; K44.9 Diaphragmatic hernia without obstruction or gangrene; Z79.899 Other long term (current) drug therapy
CPT/HCPCS: 43239; 81025; 88305; 88312; 88342; A4216; J2405

== ENCOUNTER → 2025-02-21 | Outpatient (CLI) | payer OTHER, SELFPAY ==
[2025-02-21 15:17] LABS: Hematocrit 41.3 % (37-47); Hemoglobin 13.6 g/dL (12.0-15.0); Immature Granulocytes Count 0.020 X10^3/uL (0.0-0.0); Mean Corp Hgb Conc 32.9 g/dL (32-36); Mean Corpuscular Volume 99.8 fL (81-99); Mean Platelet Vol. 10.0 fl (6.2-12.0); NRBC Flagged by Analyzer 0 % (0-5); Platelet Count 270 K/mm3 (150-450); RBC Distribution Width CV 12.7 % (11.6-14.6); RBC Distribution Width SD 46.5 fl (35.1-43.9); Red Blood Count 4.14 M/mm3 (4.2-5.4); White Blood Count 6.5 K/mm3 (4.4-11.0)
[2025-02-21 16:03] LABS: AST(SGOT) 22 U/L (<=31); Alanine Aminotransfer ALT/SGPT 33 U/L (<=34); Albumin, Serum 4.5 g/dL (3.5-5.0); Alkaline Phosphatase 83 U/L (35-104); Anion Gap 11 (5-15); BUN 11 mg/dL (4-19); BUN/Creat Ratio 14.9 RATIO (10-20); Calcium,Total 9.6 mg/dL (7.6-11.0); Carbon Dioxide 24.4 mmol/L (21.0-32.0); Chloride 102 mmol/L (98-108); Cholesterol 277 mg/dL (<=200); Globulin 2.6 g/dL (2.2-4.2); Glucose 92 mg/dL (70-99); Low Density Lipoprotein Calc. 174 mg/dL; Potassium 4.4 mmol/L (3.3-5.1); Triglycerides 121 mg/dL; Very Low Density Lipoprotein 24 mg/dL (5-40); cholesterol:hdl ratio screen 3.49
== END | disposition home or self-care (01) ==
LOC: BIMLAB 11:51
PROVIDERS: PCP Internal Medicine; Referring Provider Internal Medicine; Visit Provider Internal Medicine
DX: Z00.00 Encounter for general adult medical examination without abnormal findings (principal)
CPT/HCPCS: 36415; 80053; 80061; 85025

== ENCOUNTER → 2025-03-10 | Outpatient (CLI) | payer OTHER, SELFPAY ==
--- NOTE | 2025-03-10 15:00 | BI_ITS ---
EXAM: SCRN MAMM (CAD)W/ZULEMA BILAT DATE: 03/10/2025 CLINICAL HISTORY: F, Age 45 y/o , BREAST CANCER SCREENING No family history. TECHNIQUE: SCRN MAMM (CAD)W/ZULEMA BILAT COMPARISON: Prior exam(s) dated March 08, 2024.. FINDINGS: TISSUE DENSITY: The breasts are heterogeneously dense, which may obscure small masses. Bilateral Breast Mammographic Findings: No significant masses, calcifications or other abnormalities are identified. Stable bilateral fat containing axillary lymph nodes. No suspicious masses, areas of developing architectural distortion, or suspicious calcifications. There has been no significant interval change. BI/SCRN MAMM (CAD)W/ZULEMA BILAT IMPRESSION: Stable examination. OVERALL FINAL ASSESSMENT BI-RADS 2: BENIGN RECOMMENDATION: Routine annual follow-up in 1 Year A letter with findings and recommendations will be mailed to the patient. Reading Location: [id number]
--- OUTSIDE RECORDS SUMMARY | 2025-03-10 23:04 | XMS RPT_ITS | CCD ---
Author Organization [facility] Care Team Providers Care Jewel Bearing Broacher Name Role Phone PHYSICIAN, NONE Primary Care Physician Unavailab MARTHA Fallon Attending Unavail able PHYSICIAN, NONE Primary Care Unavailable Dr. Michelle Mcghee Primary Care Provider 1([phone] 0) Taz, Dr. Martinez Attending Provider [phone])2 Dr. Michelle Mcghee Referring Provider 1(330)2 Dr. Michelle Mcghee Primary Care Provider 1(33 0) Dr. Michelle Mcghee Attending Provider 1(330)2 Dr. Michelle Mcghee Referring Provider 1(330)2 Dr. Michelle Mcghee Primary Care Provider 1(33 0) Dr. Michelle Mcghee Attending Provider 1(330)2 Dr. Michelle Mcghee Referring Provider 1(330)2 Dr. Michelle Mcghee MD Primary Care Provider Dr. Michelle Mcghee MD Attending Provider 1(33 0) Dr. Michelle Mcghee MD Referring Provider 1(33 0) Fiona Schaeffer Referring Unavailable Fiona Schaeffer Attending Unavailable Taz Efewongbe Primary Care Unavailable Taz, Efewongbe Referring Unavailable Friend, Juan Diego Attending Unavailable Jared Mcgheebe Primary Care Unavailable Taz, Efewongbe Referring Unavailable Oleghe, Efewongbe Attending Unavailable Oleghe, Efewongbe Primary Care Unavailable Oleghe, Efewongbe Primary Care Unavailable Oleghe, Efewongbe Referring Unavailable Elva Law NP Attending Unavailable Friend, Juan Diego Attending Unavailable Oleghe, Efewongbe Primary Care Unavailable Oleghe, Efewongbe Referring Unavailable Friend, Juan Diego Consulting Unavailable Oleghe, Efewongbe Referring Unavailable Fiona Schaeffer Attending Unavailable Oleghe, Efewongbe Primary Care Unavailable Oleghe, Efewongbe Primary Care Unavailable Oleghe, Efewongbe Referring Unavailable Elva Law NP Attending Unavailable Oleghe, Efewongbe Attending Unavailable Oleghe, Efewongbe Primary Care Unavailable Oleghe, Efewongbe Referring Unavailable Fiona Schaeffer Attending Unavailable Oleghe, Efewongbe Primary Care Unavailable Oleghe, Efewongbe Referring Unavailable Oleghe, Efewongbe Attending Unavailable Oleghe, Efewongbe Primary Care Unavailable Oleghe, Efewongbe Referring Unavailable Oleghe, Efewongbe Primary Care Unavailable Oleghe, Efewongbe Referring Unavailable Anastasia Dwyer Attending Unavailable Oleghe, Efewongbe Attending Unavailable Oleghe, Efewongbe Referring Unavailable Oleghe, Efewongbe Primary Care Unavailable Oleghe, Efewongbe Attending Unavailable Oleghe, Efewongbe Primary Care Unavailable Oleghe, Efewongbe Referring Unavailable Oleghe, Efewongbe Attending Unavailable Oleghe, Efewongbe Primary Care Unavailable Oleghe, Efewongbe Referring Unavailable Fiona Schaeffer Referring Unavailable Fiona Schaeffer Attending Unavailable Oleghe, Efewongbe Primary Care Unavailable Oleghe, Efewongbe Referring Unavailable Oleghe, Efewongbe Attending Unavailable Oleghe, Efewongbe Primary Care Unavailable Allergies Allergy Classification Reported Allergen(s) Allergy Type Date of Onset Reaction(s) Facility (1 source) Contrast media; Translations: [iodinated radiocontrast agents] Drug allergy Tightness in throat (finding) [facility] (1 source) Contrast media Allergy to substance 09-01-19 [facility] (6 sources) Opioids - Morphine Analogues Propensity to adverse reactions 09-01-19 Vomiting [facility] (5 sources) Triiodobenzoic Acids Allergy to substance 01-27-20 Shortness of breath [facility] (1 source) Iodinated Contrast Media Drug allergy (disorder) 02-22-20 [facility] (1 source) Opioids - Morphine Analogues Drug allergy (disorder) 02-22-20 [facility] Medications Current Medications Medication Drug Class(es) Dates Sig (Normalized) Sig (Original) Albuterol (Eqv-ProAir HFA) 90 mcg/inh inhalation aerosol (1 source) Start: 09-28-2022 Albuterol (Eqv-ProAir HFA) 90 mcg/inh inhalation aerosol 0 Refill(s) Start Date: 09/28/22 Status: Ordered atorvastatin 20 mg oral tablet (20 sources) HMG-CoA Reductase Inhibitor Start: 02-24-2025 take 1 tablet by mouth once daily Atorvastatin (Lipitor) 20 mg tablet Active 20 mg PO daily 30 3 February 24, 2025 12:00am Start: 02-21-2020 End: 04-10-2024 inject 1 tablet by intramuscular injection once daily Atorvastatin 40 mg tablet Discontinued 40 mg PO daily 90 January 27, 2023 4:03pm April 10, 2024 10:55am cholesterol On Hold: per pt im not taking it but it is prescribed Start: 01-05-2018 End: 02-21-2020 take 1 tablet by mouth once daily Atorvastatin 20 mg t ablet Discontinued 20 mg PO daily 90 December 11, 2018 4:16pm February 21, 2020 8:55am fluticasone propionate 0.05 mg/actuat metered dose nasal spray (6 sources) Corticosteroid Start: 07-19-2021 take 50 ug nasal route once daily Fluticasone Propionate (Flonase Allergy Relief) 50 mcg/actuation spray,suspension Active 1 NMA INTRANASAL DAILY 16 July 19, 2021 1:00am administer into each nostril Start: 07-19-2021 take 1 spray(s) nasa l route once daily Fluticasone Propionate (Flonase Allergy Relief) 50 mcg/actuation spray,suspension Active 1 SPRAY INTRANASAL DAILY July 19, 2021 12:00am administer into each nostril hydrOXYzine hydrochloride 25 mg oral tablet (5 sources) Antihistamine Start: 12-05-2022 take 1 tablet by mouth three times daily as needed for anxiety Hydroxyzine Hcl 25 mg tablet Active 25 mg PO THREE TIMES A DAY as needed for anxiety 90 December 05, 2022 12:00am levonorgestrel 0.141523 mg/hr intrauterine system (6 sources) Progestin, Progestin-containin g Intrauterine Device Start: 01-02-2018 Levonorgestrel (Mirena) 20 mcg/24 hr (5 years) intrauterine device Active 1 NMA INTRA-UTER ONCE January 02, 2018 12:00am bc Start: 01-02-2018 Levonorgestrel (Mirena) 20 mcg/24 hr (5 years) intrauterine device Active 1 INSERT INTRA-UTER ONCE January 01, 2018 11:00pm metroNIDAZOLE 500 mg oral tablet (1 source) Nitroimidazole Antimicrobial Start: 09-29-2022 End: 10-06-2022 metroNIDAZOLE 500 mg oral tablet Dose : 500 mg = 1 tab(s), Oral, BID, X 7 day(s), # 14 tab(s), 0 Refill(s), 10/06/22 10:58:00 EST, Pharmacy: [facility], Bacterial vaginosis, 160, cm, 09/28/22 10:01:00 EST, Height, 71 Start Date: 09/29/22 Stop Date: 10/06/22 Status: Ordered omeprazole 40 mg delayed release oral capsule (20 sources) Proton Pump Inhibitor Start: 01-31-2024 take 1 capsule by mouth once daily Omeprazole 40 mg capsule,delayed release(DR/EC) Active 40 mg PO daily 90 January 31, 2024 12:34pm GERD Start: 01-02-2018 End: 01-31-2024 take 1 capsule by mouth once daily Omeprazole 20 mg capsule,delayed release(DR/EC) Discontinued 20 mg PO daily 90 December 19, 2022 9:27am January 31, 2024 12:35pm GERD Completed/Discontinued Medications Medication Drug Class(es) Dates Sig (Normalized) Sig (Original) [id number] 200 actuat albuterol 0.09 mg/actuat metered dose inhaler (20 sources) beta2-Adrenergic Agonist Start: 06-10-2019 End: 12-29-2023 Albuterol Sulfate 90 mcg/actuation HFA aerosol inhaler Discontinued 2 NMA INHALATION EVERY 6 HOURS as needed for shortness of breath or wheezing 8.5 2 December 26, 2023 12:22pm December 29, 2023 9:44am Start: 06-10-2019 End: 12-19-2022 take 1 puff(s) by inhalation every six hours Albuterol Sulfate Discontinued 2 PUFF INHALATION EVERY 6 HOURS 8.5 July 22, 2021 12:00am September 01, 2022 6:52pm Start: 09-26-2018 End: 06-10-2019 Albuterol Sulfate (Ventolin Hfa) 90 mcg/actuation HFA aerosol inhaler Discontinued 2 NMA INHALATION EVERY 6 HOURS as needed for shortness of breath or wheezing 6.7 1 September 26, 2018 4:33pm June 10, 2019 9:30am Start: 09-26-2018 End: 06-10-2019 take 1 puff(s) by inhalation every six hours Albuterol Sulfate (Ventolin Hfa) 90 mcg/actuation HFA aerosol inhaler Discontinued 2 PUFF INHALATION EVERY 6 HOURS 6.7 September 26, 2018 3:33pm June 10, 2019 8:30am Start: 01-02-2018 End: 09-26-2018 Albuterol Sulfate (Ventolin Hfa) 90 mcg/actuation HFA aerosol inhaler Discontinued 2 NMA INHALATION EVERY 6 HOURS as needed for shortness of breath or wheezing 6.7 1 February 06, 2018 11:41am September 26, 2018 4:35pm Start: 01-02-2018 End: 09-26-2018 take 1 puff(s) by inhalation every six hours Albuterol Sulfate (Ventolin Hfa) 90 mcg/actuation HFA aerosol inhaler Discontinued 2 PUFF INHALATION EVERY 6 HOURS 6.7 February 06, 2018 10:41am September 26, 2018 3:35pm ALPRAZolam 0.25 mg oral tablet (6 sources) Benzodiazepine Start: 01-02-2018 End: 10-09-2023 Alprazolam (Xanax) 0.25 mg tablet Discontinued 0.25 mg PO 2 to 3 times per day as needed for Anxiety January 02, 2018 12:00am October 09, 2023 9:09am amoxicillin 875 mg / clavulanate 125 mg oral tablet (18 sources) Penicillin-class Antibacterial Start: 05-19-2022 End: 09-01-2022 Amoxicillin-Pot Clavulanate 875-125 mg tablet Discontinued 1 {tbl} PO TWICE A DAY 20 May 19, 2022 12:00am September 01, 2022 3:56pm Start: 05-19-2022 End: 09-01-2022 take 1 tablet by mouth twice daily Amoxicillin-Pot Clavulanate Discontinued 1 TABLET PO TWICE A DAY May 18, 2022 11:00pm September 01, 2022 2:56pm Start: 11-11-2019 End: 02-20-2020 Amoxicillin-Pot Clavulanate 875-125 mg tablet Discontinued 1 {tbl} PO TWICE A DAY 14 November 11, 2019 12:00am February 20, 2020 2:34pm Start: 11-11-2019 End: 02-20-2020 take 1 tablet by mouth twice daily Amoxicillin-Pot Clavulanate Discontinued 1 TABLET PO TWICE A DAY November 10, 2019 11:00pm February 20, 2020 1:34pm Start: 09-26-2018 End: 12-11-2018 Amoxicillin-Pot Clavulanate 875-125 mg tablet Discontinued 1 {tbl} PO Q12H 20 September 26, 2018 1:00am December 11, 2018 4:07pm Start: 09-26-2018 End: 12-11-2018 take 1 tablet by mouth every twelve hours Amoxicillin-Pot Clavulanate Discontinued 1 TABLET PO Q12H September 26, 2018 12:00am December 11, 2018 3:07pm benzonatate 200 mg oral capsule (6 sources) Non-narcotic Antitussive Start: 09-26-2018 End: 12-11-2018 take 1 capsule by mouth three times daily as needed for cough Benzonatate 200 mg capsule Discontinued 200 mg PO THREE TIMES A DAY as needed for cough 60 0 September 26, 2018 1:00am December 11, 2018 4:07pm dicyclomine hydrochloride 20 mg oral tablet (6 sources) Anticholinergic Start: 09-14-2021 End: 09-01-2022 take 1 tablet by mouth three times daily as needed Dicyclomine 20 mg tablet Discontinued 20 mg PO THREE TIMES A DAY as needed for abdominal discomfort 20 0 September 14, 2021 4:46pm September 01, 2022 3:56pm ibuprofen 600 mg oral tablet (11 sources) Nonsteroidal Anti-inflammatory Drug Start: 06-29-2021 End: 01-20-2023 take 1 tablet by mouth three times daily as needed Ibuprofen 600 mg tablet Discontinued 600 mg PO THREE TIMES A DAY as needed December 05, 2022 1:39pm January 20, 2023 4:52pm Do not take in conjunction with other NSAID. Tylenol is okay 200 actuat levalbuterol 0.045 mg/actuat metered dose inhaler (6 sources) beta2-Adrenergic Agonist Start: 12-29-2023 End: 02-21-2025 Levalbuterol Tartrate 45 mcg/actuation HFA aerosol inhaler Discontinued 2 NMA INHALATION EVERY 4-6 HOURS as needed for shortness of breath or wheezing 15 90 1 May 06, 2024 12:41pm February 21, 2025 11:46am LORazepam 0.5 mg oral tablet (4 sources) Benzodiazepine Start: 09-12-2023 End: 10-09-2023 take 1 tablet by mouth three times daily as needed for dizziness Lorazepam 0.5 mg tablet Discontinued 0.5 mg PO THREE TIMES A DAY as needed for dizziness or vertigo 10 September 12, 2023 11:57am October 09, 2023 9:09am Peripheral vertigo Other peripheral vertigo, unspecified ear meclizine hydrochloride 25 mg oral tablet (4 sources) Antiemetic Start: 09-12-2023 End: 10-09-2023 take 1 tablet by mouth every eight hours as needed for dizziness Meclizine 25 mg tablet Discontinued 25 mg PO EVERY 8 HOURS NEEDED as needed for Dizziness 20 0 September 12, 2023 11:57am October 09, 2023 9:09am meloxicam 15 mg oral tablet (5 sources) Nonsteroidal Anti-inflammatory Drug Start: 01-20-2023 End: 01-31-2024 take 1 tablet by mouth once daily as needed for pain Meloxicam 15 mg tablet Discontinued 15 mg PO DAILY as needed for pain 20 0 January 20, 2023 4:51pm January 31, 2024 10:37am naproxen 500 mg oral tablet (2 sources) Nonsteroidal Anti-inflammatory Drug Start: 01-31-2024 End: 02-07-2024 Naproxen 500 mg tablet Discontinued 500 mg PO TWICE A DAY as needed for pain 60 1 January 31, 2024 12:00am February 07, 2024 12:48pm Take BID x 5 days then just as needed oxyCODONE hydrochloride 5 mg oral tablet (6 sources) Opioid Agonist Start: 03-02-2021 End: 03-17-2021 take 5-10 mg by mouth every six hours as needed for pain Oxycodone 5 mg tablet Discontinued 5 - 10 mg PO EVERY 6 HOURS as needed for pain 30 7 0 March 02, 2021 March 17, 2021 9:02am Other acute postprocedural pain Other acute postprocedural pain predniSONE 20 mg oral tablet (20 sources) Start: 05-19-2022 End: 05-24-2022 take 2 tablets by mouth once daily Prednisone 20 mg tablet Discontinued 40 mg PO DAILY 10 5 0 May 19, 2022 12:00am May 23, 2022 12:00am May 24, 2022 12:04am Start: 05-19-2022 End: 05-24-2022 take 40 mg by mouth once daily Prednisone Discontinued 40 MG PO DAILY 10 May 18, 2022 11:00pm May 23, 2022 11:04pm Start: 01-05-2018 End: 04-15-2020 take 2 tablets by mouth once daily Prednisone 20 mg tablet Discontinued 40 mg PO daily 10 0 September 26, 2018 4:38pm April 15, 2020 1:12pm Start: 01-05-2018 End: 04-15-2020 take 40 mg by mouth once daily Prednisone Discontinued 40 MG PO daily 10 September 26, 2018 3:38pm April 15, 2020 12:12pm sertraline 50 mg oral tablet (20 sources) Serotonin Reuptake Inhibitor Start: 12-05-2022 End: 02-21-2025 take 1 tablet by mouth once daily Sertraline (Zoloft) 50 mg tablet Discontinued 50 mg PO DAILY 30 1 February 10, 2025 8:34am February 21, 2025 11:46am Start: 09-01-2022 End: 12-05-2022 Sertraline (Zoloft) 50 mg ta blet Discontinued 50 mg PO DAILY 60 2 September 01, 2022 1:00am December 05, 2022 2:04pm Take 1/2 tablet for 1 week then 1 tablet. varenicline 1 mg oral tablet (12 sources) Partial Cholinergic Nicotinic Agonist Start: 11-30-2018 End: 02-23-2019 take 1 tablet by mouth twice daily, then take 1 tablet by mouth once Varenicline Tartrate (Chantix Continuing Month Box) 1 mg tablet Discontinued 1 mg PO TWICE A DAY 168 84 0 November 30, 2018 12:00am February 21, 2019 12:00am February 23, 2019 12:08am Start: 09-26-2018 End: 12-11-2018 take 1 tablet by mouth once Varenicline Tartrate (Thibodeaux tix Starting Month Box) 0.5 mg (11)- 1 mg (42) tablets,dose pack Discontinued 0 PO per package directions 53 0 September 26, 2018 1:00am December 11, 2018 4:08pm PO PER PKG DIR Problems Active Problems Problem Classification Problem Date Documented Da te Episodic/Chronic Anxiety disorders (10 sources) Generalized anxiety disorder; Translations: [Generalized anxiety disorder] 09-01-2022 Chronic Asthma (14 sources) Asthmatic bronchitis; Translations: [Unspecified asthma with (acute) exacerbation] 05-19-2022 Chronic Comment on above: PRN INHALER Conditions associated with dizziness or vertigo (4 sources) Peripheral vertigo; Translations: [Other peripheral vertigo, unspecified ear] 09-12-2023 Episodic Disorders of lipid metabolism (8 sources) Hyperlipidemia; Translations: [Hyperlipidemia, unspecified] 12-12-2018 Chronic Esophageal disorders (8 sources) Gastroesophageal reflux disease; Translations: [Gastro-esophageal reflux disease without esophagitis] 01-02-2018 Chronic Headache; including migraine (2 sources) Headache; Translations: [Headache] 01-31-2024 Episodic Inflammatory diseases of female pelvic organs (2 sources) Acute vaginitis; Translations: [Acute vaginitis] Onset: Episodic Other connective tissue disease (6 sources) Disorder of rotator cuff; Translations: [Unspecified disorder of synovium and tendon, unspecified shoulder] 01-02-2018 Episodic Other female genital disorders (2 sources) Vaginal discharge; Translations: [Other specified noninflammatory disorders of vagina] 04-10-2024 Episodic Other gastrointestinal disorders (2 sources) Constipation alternates with diarrhea; Translations: [Other specified symptoms and signs involving the digestive system and abdomen] 06-14-2024 Episodic Other liver diseases (2 sources) Steatosis of liver; Translations: [Fatty (change of) liver, not elsewhere classified] 06-14-2024 Chronic Other liver diseases (1 source) Fatty (change of) liver, not elsewhere classified; Translations: [Fatty (change of) liver, not elsewhere classified] Onset: 4 Chronic Other nervous system disorders (15 sources) Carpal tunnel syndrome; Translations: [Carpal tunnel syndrome, right upper limb] 06-09-2021 Chronic Other nervous system disorders (3 sources) Carpal tunnel syndrome of right wrist; Translations: [Carpal tunnel syndrome, right upper limb] 06-09-2021 Chronic Other nervous system disorders (6 sources) Acute postoperative pain; Translations: [Other acute postprocedural pain] 03-02-2021 Episodic Other non-traumatic joint disorders (4 sources) Pain in left shoulder; Translations: [Left shoulder pain] 10-09-2023 Episodic Other nutritional; endocrine; and metabolic disorders (2 sources) Obesity; Translations: [Obesity, unspecified] 04-10-2024 Chronic Other screening for suspected conditions (not mental disorders or infectious disease) (8 sources) Encounter for screening for malignant neoplasm of cervix; Translations: [Patient encounter status] Onset: 3 Episodic Other skin disorders (6 sources) Finding of neck region; Translations: [Localized swelling, mass and lump, neck] 01-05-2018 Episodic Other upper respiratory disease (6 sources) Seasonal allergy; Translations: [Other seasonal allergic rhinitis] 01-02-2018 Chronic Other upper respiratory infections (6 sources) Upper respiratory infection; Translations: [Acute upper respiratory infection, unspecified] 09-26-2018 Episodic Residual codes; unclassified (6 sources) Tobacco user; Translations: [Tobacco use] 09-26-2018 Episodic Residual codes; unclassified (2 sources) Tobacco use; Translations: [Tobacco use disorder] 09-01-2022 Episodic Spondylosis; intervertebral disc disorders; other back problems (12 sources) Backache; Translations: [Dorsalgia, unspecified] 12-05-2022 Episodic Unclassified (2 sources) Encounter for health maintenance examination Unclassified (2 sources) Z00.00 - Encounter for general adult medical examination without abnormal findings Past or Other Problems Problem Classification Problem Date Documented Da te Episodic/Chronic Abdominal pain (19 sources) Abdominal pain; Translations: [Unspecified abdominal pain] Onset: 03-05-2024 09-22-2021 Episodic Contraceptive and procreative management (3 sources) Patient encounter status; Translations: [Encounter for contraceptive management, unspecified] Onset: 07-29-2024 07-29-2024 Episodic Comment on above: IUD Other female genital disorders (1 source) Other specified noninflammatory disorders of vagina; Translations: [Other specified noninflammatory disorders of vagina] Onset: 04-10-2024 Episodic Other gastrointestinal disorders (1 source) Other specified symptoms and signs involving the digestive system and abdomen; Translations: [Other specified symptoms and signs involving the digestive system and abdomen] Onset: 09-02-2024 Episodic Results Test Name Value Interpretation Reference Range Facility Absolute lymphocyte countOrd ered By: Michelle Mcghee on 02-21-2025 Lymphocytes Auto (Unsp spec) [#/Vol] 1.63 10*3/uL 0.83-4.51 [facility] Absolute neutrophil countOrd ered By: Michelle Mcghee on 02-21-2025 Neutrophils (Bld) [#/Vol] 4.2 10*3/uL 2.0-7.7 [facility] Anion gap in Serum or Plasma Ordered By: Michelle Mcghee on 02-21-2025 Anion gap [Moles/Vol] 11 mmol/L 5- [facility] Automated lymphocyte count a s percentage of total leukocytesOrdered By: Michelle Mcghee on 02-21-2025 Lymphocytes/100 WBC Auto (Unsp spec) 25.0 % - [facility] BUN/creatinine ratioOrdered By: Michelle Mcghee on 02-21-2025 Urea nitrogen/Creatinine [Mass ratio] 14.9 mg/mg 10- [facility] Basophil percentageOrdered B y: Michelle Mcghee on 02-21-2025 Basophils/100 WBC (Bld) 0.2 % 0- [facility] Bilirubin, totalOrdered By: Michelle Mcghee on 02-21-2025 Bilirubin [Mass/Vol] 0.38 mg/dL 0.00-1.30 [facility] CBC W/Diff, Automatedon 02-11 Absolute Lymph 1.63 X10 3/uL Normal 0.83-4.51 [facility] Comment on above: Performed By: #### L 500.4050, L100.0100, L500.4100 #### [facility] [address] [place], [address] Absolute Neut 4.2 X10 3/uL Normal 2.0-7.7 [facility] Comment on above: Performed By: #### L 500.4050, L100.0100, L500.4100 #### [facility] [address] [place], [address] Basophils/100 WBC (Bld) 0.2 % Normal 0-1 [facility] Comment on above: Performed By: #### L 500.4050, L100.0100, [id number] #### [facility] [address] [place], [address] Eosinophils/100 WBC (Bld) 2.6 % Normal 0-5 [facility] Comment on above: Performed By: #### L 500.4050, L100.0100, [id number] #### [facility] [address] [place], [address] Erythrocyte distribution width (RBC) [Ratio] 12.7 % Normal 11.6-14.6 [facility] Comment on above: Performed By: #### L 500.4050, L100.0100, L500.4100 #### [facility] [address] [place], [address] Hematocrit (Bld) [Volume fraction] 41.3 % Normal 37-47 [facility] Comment on above: Performed By: #### L 500.4050, L100.0100, [id number] #### [facility] [address] [place], [address] Hemoglobin (Bld) [Mass/Vol] 13.6 g/dL Normal 12.0-15.0 [facility] Comment on above: Performed By: #### L 500.4050, L100.0100, L500.4100 #### [facility] [address] [place], [address] IG% 0.300 Normal 0.0-0.9 [facility] Comment on above: Result Comment: IG% - Immature Granulocytes (promyelocytes, myelocytes and metamyelocytes) > 1% indicates that a LEFT SHIFT is Present. Performed By: #### L 500.4050, L100.0100, [id number] #### [facility] [address] [place], [address] Lymphocytes/100 WBC (Bld) 25.0 % Normal 19-41 [facility] Comment on above: Performed By: #### L 500.4050, L100.0100, [id number] #### [facility] [address] [place], [address] MCH (RBC) [Entitic mass] 32.9 pg High 27.0-32.0 [facility] Comment on above: Performed By: #### L 500.4050, L100.0100, [id number] #### [facility] [address] [place], [address] MCHC (RBC) [Mass/Vol] 32.9 g/dL Normal 32-36 [facility] Comment on above: Performed By: #### L 500.4050, L100.0100, [id number] #### [facility] [address] [place], [address] MCV (RBC) [Entitic vol] 99.8 fL High 81-99 [facility] Comment on above: Performed By: #### L 500.4050, L100.0100, [id number] #### [facility] [address] [place], [address] Monocytes/100 WBC (Bld) 6.9 % Normal 0-10 [facility] Comment on above: Performed By: #### L 500.4050, L100.0100, [id number] #### [facility] [address] [place], [address] Neutrophils/100 WBC (Bld) 65.0 % Normal 47-70 [facility] Comment on above: Performed By: #### L 500.4050, L100.0100, [id number] #### [facility] [address] [place], [address] Nucleated RBC (Bld) [#/Vol] 0 10*3/uL Normal 0-5 [facility] Comment on above: Performed By: #### L 500.4050, L100.0100, [id number] #### [facility] [address] [place], [address] Platelet mean volume (Bld) [Entitic vol] 10.0 fL Normal 6.2-12.0 [facility] Comment on above: Performed By: #### L 500.4050, L100.0100, [id number] #### [facility] [address] [place], [address] Platelets (Bld) [#/Vol] 270 10*3/uL Normal 150-450 [facility] Comment on above: Performed By: #### L 500.4050, L100.0100, [id number] #### [facility] [address] [place], [address] RBC (Bld) [#/Vol] 4.14 10*6/uL Low 4.2-5.4 [facility] Comment on above: Performed By: #### L 500.4050, L100.0100, L500.4100 #### [facility] [address] [place], [address] RDW SD 46.5 fl High 35.1-43.9 [facility] Comment on above: Performed By: #### L 500.4050, L100.0100, L500.4100 #### [facility] [address] [place], [address] WBC (Bld) [#/Vol] 6.5 10*3/uL Normal 4.4-11.0 [facility] Comment on above: Performed By: #### L 500.4050, L100.0100, L500.4100 #### [facility] [address] [place], [address] Calculated very low density lipoprotein (VLDL) cholesterol measurementOrdered By: Michelle Mcghee on 02-21-2025 Calculated very low density lipoprotein (VLDL) cholesterol measurement 24 mg/dL 5-40 [facility] Carbon dioxide, total [Moles /volume] in Central venous bloodOrdered By: Michelle Mcghee on 02-21-2025 CO2 [Moles/Vol] 24.4 mmol/L 21.0-32.0 [facility] Chloride assayOrdered By: Randall Mcghee on 02-21-2025 Chloride [Moles/Vol] 102 mmol/L 98-108 [facility] Comprehensive Metabolic Prof ilon 02-21-2025 Albumin [Mass/Vol] 4.5 g/dL Normal 3.5-5.0 [facility] Comment on above: Performed By: #### L 500.4050, L100.0100, L500.4100 #### [facility] [address] [place], [address] Albumin/Globulin [Mass ratio] 1.7 {ratio} Normal 0.9-2.4 [facility] Comment on above: Performed By: #### L 500.4050, L100.0100, L500.4100 #### [facility] [address] [place], [address] ALK PHOS 83 U/L Normal 35-104 [facility] Comment on above: Performed By: #### L 500.4050, L100.0100, L500.4100 #### [facility] [address] [place], [address] ALT [Catalytic activity/Vol] 33 U/L Normal <=34 [facility] Comment on above: Performed By: #### L 500.4050, L100.0100, L500.4100 #### [facility] [address] [place], [address] AST [Catalytic activity/Vol] 22 U/L Normal <=31 [facility] Comment on above: Performed By: #### L 500.4050, L100.0100, L500.4100 #### [facility] [address] [place], [address] Bilirubin [Mass/Vol] 0.38 mg/dL Normal 0.00-1.30 [facility] Comment on above: Performed By: #### L 500.4050, L100.0100, L500.4100 #### [facility] [address] [place], [address] BUN/CRE 14.9 RATIO Normal 10-20 [facility] Comment on above: Performed By: #### L 500.4050, L100.0100, L500.4100 #### [facility] [address] [place], [address] Calcium [Mass/Vol] 9.6 mg/dL Normal 7.6-11.0 [facility] Comment on above: Performed By: #### L 500.4050, L100.0100, L500.4100 #### [facility] [address] [place], [address] Chloride [Moles/Vol] 102 mmol/L Normal 98-108 [facility] Comment on above: Performed By: #### L 500.4050, L100.0100, L500.4100 #### [facility] [address] [place], [address] CO2 [Moles/Vol] 24.4 mmol/L Normal 21.0-32.0 [facility] Comment on above: Performed By: #### L 500.4050, L100.0100, L500.4100 #### [facility] [address] [place], [address] Creatinine [Mass/Vol] 0.72 mg/dL Normal 0.70-1.20 [facility] Comment on above: Performed By: #### L 500.4050, L100.0100, L500.4100 #### [facility] [address] [place], [address] GAP 11 Normal 5-15 [facility] Comment on above: Performed By: #### L 500.4050, L100.0100, L500.4100 #### [facility] [address] [place], [address] GFR/1.73 sq M.predicted among non-blacks MDRD (S/P/Bld) [Vol rate/Area] 105 mL/min/{1.73_m2} Normal >60 [facility] Comment on above: Result Comment: mL/m in/1.73m2 CKD-EPI Creatinine Equation (2020) Performed By: #### L 500.4050, L100.0100, L500.4100 #### [facility] [address] [place], [address] Globulin (S) [Mass/Vol] 2.6 g/dL Normal 2.2-4.2 [facility] Comment on above: Performed By: #### L 500.4050, L100.0100, L500.4100 #### [facility] [address] [place], [address] Glucose [Mass/Vol] 92 mg/dL Normal 70-99 [facility] Comment on above: Performed By: #### L 500.4050, L100.0100, L500.4100 #### [facility] [address] [place], [address] Potassium [Moles/Vol] 4.4 mmol/L Normal 3.3-5.1 [facility] Comment on above: Performed By: #### L 500.4050, L100.0100, L500.4100 #### [facility] [address] [place], [address] Sodium [Moles/Vol] 137 mmol/L Normal 133-145 [facility] Comment on above: Performed By: #### L 500.4050, L100.0100, L500.4100 #### [facility] [address] [place], [address] T PROT 7.1 g/dL Normal 5.9-8.4 [facility] Comment on above: Performed By: #### L 500.4050, L100.0100, L500.4100 #### [facility] [address] [place], [address] Urea nitrogen [Mass/Vol] 11 mg/dL Normal 4-19 [facility] Comment on above: Performed By: #### L 500.4050, L100.0100, L500.4100 #### [facility] [address] [place], [address] Eosinophil percentageOrdered By: Michelle Mcghee on 02-21-2025 Eosinophils/100 WBC (Bld) 2.6 % 0-5 [facility] Erythrocyte distribution wid th ratioOrdered By: Michelle Mcghee on 02-21-2025 Erythrocyte distribution width (RBC) [Ratio] 12.7 % 11.6-14.6 [facility] Erythrocyte distribution wid th standard deviationOrdered By: Michelle Mcghee on 02-21-2025 Erythrocyte distribution width (RBC) [Ratio] 46.5 fl High 35.1-43.9 [facility] Glomerular filtration rate ( GFR) estimation/1.73 sq m using serum, plasma, or whole bOrdered By: Michelle Mcghee on 02-21-2025 GFR/1.73 sq M.predicted among non-blacks MDRD (S/P/Bld) [Vol rate/Area] 105 mL/min/{1.73_m2} >60 [facility] Comment on above: mL/min/1.73m2 CKD-EP I Creatinine Equation (2020) Hematocrit Auto (Bld) [Volum e fraction]Ordered By: Michelle Mcghee on 02-21-2025 Hematocrit (Bld) [Volume fraction] 41.3 % 37-47 [facility] Hemoglobin measurementOrdere d By: Michelle Mcghee on 02-21-2025 Hemoglobin (Bld) [Mass/Vol] 13.6 g/dL 12.0-15.0 [facility] Immature granulocytes/100 WB C Auto (Bld)Ordered By: Michelle Mcghee on 02-21-2025 Immature granulocytes/100 WBC (Bld) 0.300 % 0.0-0.9 [facility] Comment on above: IG% - Immature Granu locytes (promyelocytes, myelocytes and metamyelocytes) > 1% indicates that a LEFT SHIFT is Present. Internal Medicine Office Vis itogabriella 02-21-2025 Internal Medicine Office Visit [facility] [place] [address] [place] [address] OFFICE VISIT Date of Service: 02/21/25 MR#: [id number] Acct: [id number] Name: MARILIN LEWIS Rep #: [id number] : 1980 Provider: Dr. Michelle young MD Age/Sex: 45/F Location: [facility] Status: Signed Intake Vital Signs 07/31/24 06:30 02/21/25 11:08 Height 5 ft 3 in 5 ft 3 in Weight: 191 lb 8 oz BMI 33.9 BP 104/78 Blood Pressure Location Rt brachial Position Sitting Respiration 16 Pulse 86 Pulse Source Monitor Temp 97.8 F Temp Source Temporal Pulse Oximetry (%) 95 Intake Visit Reasons: MED FU Chief Complaint: F/U Cam Maker Required: No Accompanied by: Self Is patient in pain?: No Allergies Iodinated Contrast Media Allergy (Verified 02/21/25 11:10) Shortness of breath Opioids - Morphine Analogues (narcotics) Adverse Reaction (Severe, Verified 02/21/25 11:10) Vomiting Medications ???Medication ???Instructions ???Recorded ???Confirmed ???Type levonorgestrel (Mirena) 1 insert intrauterine ONCE bc 12/1302/21/25 History fluticasone propionate 50 1 spray intranasal DAILY #16 grams 07/19/21 02/21/25 Rx mcg/actuation nasal spray,suspension (Flonase Allergy Relief) hydroxyzine HCl 25 mg tablet 25 mg PO TID PRN anxiety #90 tabs 12/05/22 02/21/25 Rx omeprazole 40 mg capsule,delayed 40 mg PO QDAY GERD #90 caps 02/21/25 Rx release levalbuterol tartrate 45 2 puff inhalation Q4-6H PRN 02/21/25 Rx mcg/actuation aerosol inhaler shortness of breath or wheezing 3 months #15 grams sertraline 50 mg tablet (Zoloft) 50 mg PO DAILY #90 tabs 02/21/25 0 02/21/25 Rx Nurse's Note: F/U for med refill PFSH Medical History Epigastric abdominal pain Contraceptive management Wears glasses Restless legs Shortness of breath on exertion Former smoker Family hx of colon cancer Headache LUQ abdominal pain Colon cancer screening Health care maintenance Left shoulder pain Chronic back pain Acute back pain Generalized anxiety disorder with panic attacks Asthmatic bronchitis with exacerbation History of COVID-19 Alcohol use Anxiety High cholesterol Migraine headache History of hiatal hernia Gastric reflux History of echocardiogram History of stress test Carpal tunnel syndrome Seasonal allergies Asthma GERD (gastroesophageal reflux disease) Surgical History History of carpal tunnel surgery of right wrist Hx of colonoscopy Hx of inguinal hernia repair History of carpal tunnel surgery of left wrist History of appendectomy History of nasal septoplasty History of tonsillectomy Family History Father COPD (chronic obstructive pulmonary disease) Anxiety Asthma Mother Obesity Sister Asthma Diabetes Grandmother Hypertension Heart disease Grandfather Colon cancer Cancer prostate and lukemia Social History household members: spouse and children number of children: 4 current occupational status: employed current occupation: [employer] sexually active: Yes Smoking Status: Former smoker alcohol intake: current alcohol intake frequency: holidays/special occasions only Alcohol type: wine substance use type: does not use eating out: other details: twice a month what type of physical activity do you participate in: other details: does yard work and house work seatbelt use: always do you feel safe at home: Yes HPI HPI Chief Complaint: F/U Details: MARILIN LEWIS, is a 45 F who presents to the office today for The patient is a 45-year-old female presenting for a routine wellness visit and management of chronic conditions. She continues to take Zoloft for mood stabilization, which she finds helpful, and omeprazole for gastroesophageal reflux disease, taken first thing in the morning. Her previous abdominal pain in the left upper quadrant has resolved, and a recent esophagogastroduodenoscopy (EGD) showed evidence of chronic gastritis/no acute concerns per The patient is due for a mammogram and has not yet seen a plate roller, she would like a new referral. Follows up with [facility]. Attestation: Documentation on this patient encounter was supported using ambient scribe technology/ voice AI technology. The patient consented to recording for the purpose of documenting the encounter. Provider reviewed content of the generated note prior to signature. ROS Const Constitutional: No body ache, chills, excessive sweating, fatigue, fever(s), frequent falls, headache(s), snoring, weakness, weight change, sleep problems or change in appetite Eyes (more content not included)... Normal [facility] LDL calc ser/plasOrdered By: Michelle Mcghee on 02-21-2025 Cholesterol in LDL [Mass/Vol] 174 mg/dL [facility] Comment on above: Odlkahnnyn=322-643 m g/dL & Higher Ywai=722 mg/dL or greater Laboratory - Chemistry and C hemistry - challengeOrdered By: Michelle Mcghee on 02-21-2025 AST [Catalytic activity/Vol] 22 U/L <32 [facility] Lipid Profileon 02-21-2025 CHOL:HDL 3.49 Normal [facility] Comment on above: Performed By: #### L 500.4050, L100.0100, L500.4100 #### [facility] [address] [place], [address] Cholesterol [Mass/Vol] 277 mg/dL High <=200 [facility] Comment on above: Result Comment: Chol esterol level, Desirable <200 mg/dL Borderline high cholesterol 200-239 mg/dL High cholesterol >=240 mg/dL Recommendations of the NCEP Adult Treatment Panel for the following risk-cutoff thresholds for the [place] population. Performed By: #### L 500.4050, L100.0100, L500.4100 #### [facility] [address] [place], [address] Cholesterol in HDL [Mass/Vol] 79 mg/dL Normal [facility] Comment on above: Result Comment: Diane onal Cholesterol Education Program (NCEP) guidelines: <40 mg/dL: Low HDL-cholesterol (major risk factor for CHD) >= 60 mg/dL: High HDL-cholesterol (negative risk factor for CHD) HDL-cholesterol is affected by a number of factors, e.g. smoking, exercise, hormones, sex and age. Performed By: #### L 500.4050, L100.0100, L500.4100 #### [facility] [address] [place], [address] Cholesterol in LDL [Mass/Vol] 174 mg/dL Normal [facility] Comment on above: Result Comment: Bord pcptgm=682-332 mg/dL Higher Aobl=360 mg/dL or greater Performed By: #### L 500.4050, L100.0100, L500.4100 #### [facility] [address] [place], [address] Cholesterol in VLDL [Mass/Vol] 24 mg/dL Normal 5-40 [facility] Comment on above: Performed By: #### L 500.4050, L100.0100, L500.4100 #### [facility] [address] [place], [address] Triglyceride [Mass/Vol] 121 mg/dL Normal [facility] Comment on above: Result Comment: The drugs N-Acetylcysteine and Metamizole may falsely depress this assay. Normal range: <150 mg/dL Borderline High: 150-199 mg/dL High: 200-499 mg/dL Very High: >500 mg/dL Performed By: #### L 500.4050, L100.0100, L500.4100 #### [facility] [address] [place], [place], [address] MCV (mean corpuscular volume ) determinationOrdered By: Michelle Mcghee on 02-21-2025 MCV (RBC) [Entitic vol] 99.8 fL High 81-99 [facility] Mean corpuscular hemoglobin (MCH) determinationOrdered By: Michelle Mcghee on 02-21-2025 MCH (RBC) [Entitic mass] 32.9 pg High 27.0-32.0 [facility] Mean corpuscular hemoglobin concentration (MCHC) determinationOrdered By: Michelle Mcghee on 02-21-2025 MCHC (RBC) [Mass/Vol] 32.9 g/dL 32-36 [facility] Mean platelet volume determi nationOrdered By: Michelle Mcghee on 02-21-2025 Platelet mean volume (Bld) [Entitic vol] 10.0 fL 6.2-12.0 [facility] Monocyte percentageOrdered B y: Michelle Mcghee on 02-21-2025 Monocytes/100 WBC (Bld) 6.9 % 0-10 [facility] Neutrophil percentageOrdered By: Eflois Botelloe on 02-21-2025 Neutrophils/100 WBC (Bld) 65.0 % 47-70 [facility] Nucleated red blood cell per centageOrdered By: Michelle Mcghee on 02-21-2025 Nucleated RBC/100 WBC (Bld) [Ratio] 0 % 0-5 [facility] Platelet countOrdered By: Randall Mcghee on 02-21-2025 Platelets (Bld) [#/Vol] 270 10*3/uL 150-450 [facility] Potassium measurement (mass/ volume)Ordered By: Michelle Mcghee on 02-21-2025 Potassium (Unsp spec) [Mass/Vol] 4.4 mmol/L 3.3-5.1 [facility] RBC Auto (Bld) [#/Vol]Ordere d By: Michelle Mcghee on 02-21-2025 RBC (Bld) [#/Vol] 4.14 10*6/uL Low 4.2-5.4 [facility] Screening total cholesterol/ high density lipoprotein (HDL) cholesterol ratioOrdered By: Michelle Mcghee on 02-21-2025 Cholesterol.total/Chol esterol in HDL [Mass ratio] 3.49 {ratio} [facility] Serum creatinine measurement (mass/volume)Ordered By: Michelle Mcghee on 02-21-2025 Creatinine [Mass/Vol] 0.72 mg/dL 0.70-1.20 [facility] Serum globulin measurementOr dered By: Michelle Mcghee on 02-21-2025 Globulin (S) [Mass/Vol] 2.6 g/dL 2.2-4.2 [facility] Serum glucose measurement (m ass/volume)Ordered By: Michelle Mcghee on 02-21-2025 Glucose [Mass/Vol] 92 mg/dL 70-99 [facility] Serum or plasma alanine eldridge otransferase (ALT) measurementOrdered By: Michelle Mcghee on 02-21-2025 ALT [Catalytic activity/Vol] 33 U/L <35 [facility] Serum or plasma albumin jennifer urement (mass/volume)Ordered By: Michelle Mcghee on 02-21-2025 Albumin [Mass/Vol] 4.5 g/dL 3.5-5.0 [facility] Serum or plasma albumin/glob ulin mass ratioOrdered By: Michelle Mcghee on 02-21-2025 Albumin/Globulin [Mass ratio] 1.7 {ratio} 0.9-2.4 [facility] Serum or plasma alkaline aye sphatase measurementOrdered By: Michelle Mcghee on 02-21-2025 ALP [Catalytic activity/Vol] 83 U/L 35-104 [facility] Serum or plasma calcium jennifer urement (mass/volume)Ordered By: Michelle Mcghee 02-21-2025 Calcium [Mass/Vol] 9.6 mg/dL 7.6-11.0 [facility] Serum or plasma cholesterol in HDL measurement (mass/volume)Ordered By: Michelle Mcghee on 02-21-2025 Cholesterol in HDL [Mass/Vol] 79 mg/dL >40 [facility] Comment on above: National Cholesterol Education Program (NCEP) guidelines:<40 mg/dL: Low HDL-cholesterol (major risk factor for CHD)>= 60 mg/dL: High HDL-cholesterol (negative risk factor for CHD)HDL-cholesterol is affected by a number of factors, e.g. smoking, exercise, hormones, sex and age. Serum or plasma cholesterol measurement (mass/volume)Ordered By: Michelle Mcghee on 02-21-2025 Cholesterol [Mass/Vol] 277 mg/dL High <201 [facility] Comment on above: Cholesterol level, D esirable <200 mg/dLBorderline high cholesterol 200-239 mg/dLHigh cholesterol >=240 mg/dLRecommendations of the NCEP Adult Treatment Panel for the following risk-cutoff thresholds for the [place] population. Serum or plasma urea nitroge n measurement (mass/volume)Ordered By: Michelle Mcghee on 02-21-2025 Urea nitrogen [Mass/Vol] 11 mg/dL 4-19 [facility] Sodium levelOrdered By: Nessa Mcghee 02-21-2025 Sodium [Moles/Vol] 137 mmol/L 133-145 [facility] Total proteinOrdered By: Ashok Mcghee on 02-21-2025 Protein [Mass/Vol] 7.1 g/dL 5.9-8.4 [facility] Triglycerides measurementOrd ered By: Michelle Mcghee 02-21-2025 Triglyceride [Mass/Vol] 121 mg/dL <199 [facility] Comment on above: The drugs N-Acetylcy steine and Metamizole may falsely depress this assay. Normal range: <150 mg/dLBorderline High: 150-199 mg/dLHigh: 200-499 mg/dLVery High: >500 mg/dL White blood cell (WBC) count Ordered By: Michelle Mcghee on 02-21-2025 WBC (Bld) [#/Vol] 6.5 10*3/uL 4.4-11.0 [facility] EGD Reporton 07-31-2024 EGD Report [facility] Medical Records Department [address] [place] [address] EGD Report MR#: [id number] Acct: [id number] Name: MARILIN LEWIS Rep #: [id number] : 1980 44 From: Juan Diego Franco DO PCP: Dr. Michelle Mcghee MD Status:REG [facility] Patient Name: Marilin Lewis Procedure Date: 07/31/2024 6:26 AM Date of : 1980 Age: 44 Procedure: Upper GI endoscopy Indications: Epigastric abdominal pain, Functional Dyspepsia Providers: Juan Diego Franco DO Referring MD: Michelle Mcghee MD Medicines: Monitored Anesthesia Care Patient Profile: This is a 44 year old female. Refer to note in patient chart for documentation of history and physical. Patient has symptoms of dysphagia with both liquids and solids. Complications: No immediate complications. Procedure: Pre-Anesthesia Assessment: - Prior to the procedure, a History and Physical was performed, and patient medications and allergies were reviewed. The patient is competent. The risks and benefits of the procedure and the sedation options and risks were discussed with the patient. All questions were answered and informed consent was obtained. Patient identification and proposed procedure were verified by the physician in the pre-procedure area. Mental Status Examination: alert and oriented. Airway Examination: normal oropharyngeal airway and neck mobility. Respiratory Examination: clear to auscultation. CV Examination: normal. Prophylactic Antibiotics: The patient does not require prophylactic antibiotics. Prior Anticoagulants: The patient has taken no anticoagulant or antiplatelet agents except for NSAID medication. ASA Grade Assessment: II - A patient with mild systemic disease. After reviewing the risks and benefits, the patient was deemed in satisfactory condition to undergo the procedure. The anesthesia plan was to use monitored anesthesia care (MAC). Immediately prior to administration of medications, the patient was re-assessed for adequacy to receive sedatives. The heart rate, respiratory rate, oxygen saturations, blood pressure, adequacy of pulmonary ventilation, and response to care were monitored throughout the procedure. The physical status of the patient was re-assessed after the procedure. After obtaining informed consent, the endoscope was passed under direct vision. Throughout the procedure, the patient's blood pressure, pulse, and oxygen saturations were monitored continuously. The Endoscope was introduced through the mouth, and advanced to the second part of duodenum. The upper GI endoscopy was accomplished without difficulty. The patient tolerated the procedure well. Scope In: 6:54:05 AM Scope Out: 6:59:44 AM Total Procedure Duration Time 0 hours 5 minutes 39 seconds Findings: The Z-line was irregular and was found 39 cm from the incisors. Biopsies were taken with a cold forceps for histology. Verification of patient identification for the specimen was done. Estimated blood loss was minimal. Patchy mild inflammation characterized by erythema was found in the gastric antrum. Biopsies were taken with a cold forceps for histology. Verification of patient identification for the specimen was done. Biopsies were taken with a cold forceps for Helicobacter pylori testing. Verification of patient identification for the specimen was done. Estimated blood loss was minimal. Patchy mildly erythematous mucosa without active bleeding and with no stigmata of bleeding was found in the duodenal bulb. Biopsies were taken with a cold forceps for histology. Verification of patient identification for the specimen was done. Estimated blood loss was minimal. A small hiatal hernia was present. Impression: - Z-line irregular, 39 cm from the incisors. Biopsied. - Chronic gastritis. Biopsied. - Erythematous duodenopathy. Biopsied. Recommendation: - Discharge patient to home. - Resume previous diet. - Continue present medications. - Await pathology results. Procedure Code(s): --- Professional --- 90478, Esophagogastroduodenoscopy, flexible, transoral; with biopsy, single or multiple CPT copyright 2021 [employer]. All rights reserved. The codes documented in this report are preliminary and upon transfer worker review may be revised to meet current compliance requirements. Juan Diego Franco DO 07/31/2024 7:08:04 AM This report has been signed electronically. Number of Addenda: 0 Note Initiated On: 07/31/2024 6:26 AM 07/31/24707 Date Juan Diego Franco DO Cosigner Signature: Date (if indicated) CC: Dr. Michelle Mcghee MD; Juan Diego Franco DO Date Dictated: 07/31/24625 Date Transcribed: Night Custodian: MARGARITA Signed Normal [facility] H Pylori (initial)on H Pylori (initial) ------- Patient Age/Sex Location Account Attending Physician MARILIN LEWIS 44/F EN [id number] Juan Diego Franco DO Specimen: [id number] Received: 07/31/24 Status: PELON Still Num: [id number] Spec Type: IMMUNO Subm Dr: Juan Diego Franco, DO PHYSICIAN INSTITUTION [place] [address] SPECIMEN INFORMATION: Tissue Source: A- Gastric antrum biopsy Clinical Info: Left upper quadrant abdominal pain, fatty liver, alternating constipation and diarrhea Specimen Number: [id number] CPT code: 71982 METHODOLOGY: Deparaffinized sections of prefer/formalin-fixed tissue or PAP/DQ stained slides are incubated with monoclonal/polyclonal antibodies/oligonucleotide probes. Localization is made via biotin free immunoperoxidase method. Appropriate controls are performed and reacted as expected. Results on target cell population are indicated in the following table: RESULTS: ANTIBODY / CLONE RESULT Block A H Pylori (polyclonal) negative These tests were developed and their performance characteristics determined by [facility]. They may not have been cleared or approved by the U.S. Food and Drug Administration. The FDA has determined that such clearance or approval is not necessary. The above immunohistochemical/dualISH markers are ordered and reviewed by the Pathologist. INTERPRETATION: A. Gastric antrum, biopsy: Negative for Helicobacter pylori organisms. 08/01/2024 Signed (signature on file) Dr. Tom Frias MD 08/01/24 1417 Normal [facility] Comment on above: Performed By: #### P H.PYLORI #### [facility] [address] [place] [address], [id number] MR/POSTOP.Angelina 07-31-2024 MR/POSTOP.[facility] Medical Records Department [address] [place] [address] Anesthesia Postop Eval I 07/31/24 0706 MR#: [id number] Acct: [id number] Name: AMRILIN LEWIS Rep #: [id number] : 1980 44 From: Tarun Ring PCP: Dr. Michelle Mcghee MD Status:REG SD Y Race: C Location: [place] [address] Anesthesia: Postop Eval I Current Vital Signs Temperature: 98.5 F Pulse Rate: 78 Blood Pressure: 101/57 Respiratory Rate: 16 Pulse Ox: 93 Oxygen Delivery Method: Room Air Assessment Airway patent: Yes Spontaneous unlabored respirations: Yes Mental status: Asleep nausea: No Vomiting: No Anesthesia Complication: No Fluid Hydration Crystalloid volume administer (ml): 30 Total IV fluid infused: 30 Progress Note Anesthesia document: Postop Eval 1 completed: Yes 07/31/24706 Date Tarun Murcia Signature: Date CC: Signed Normal [facility] MR/[id number] 07-31-2024 /[facility] Medical Records Department [address] [place] [address] Anesthesia Postop Eval II 07/31/24 0834 MR#: [id number] Acct: [id number] Name: MARILIN LEWIS Rep #: [id number] : 1980 44 From: Acosta Higgins MD PCP: Dr. Michelle Mcghee MD Status:REG SDC Y Race: C Location: [place] [address] Anesthesia Postop Eval I Sum Postop Eval Completion status Anesthesia document: Postop Eval 1 completed: Yes Anesthesia Postop Eval I Summary Anesthesia Postop Eval I Summary: Anesthesia Postop Eval I: Assessment Summary Airway patent Yes 07/31/24 07:07 [email or web address] Spontaneous unlabored Yes 07/31/24 07:07 [email or web address] respirations Mental status Asleep 07/31/24 07:07 [email or web address] nausea No 07/31/24 07:07 [email or web address] Vomiting No 07/31/24 07:07 [email or web address] Anesthesia Postop Eval I: Fluid Summary Crystalloid volume administer 30 07/31/24 07:07 [email or web address] (ml) Colloids volume administered ( ml) Blood Product volume administered (ml) Total IV fluid infused 30 07/31/24 07:07 [email or web address] Anesthesia Postop Eval I: Summary Notes Anesthesia Complication No 07/31/24 07:07 [email or web address] Anesthesia Complication Comment: Post-operative progress note Anesthesia: Postop Eval II Evaluation Mental status: Awake Pain Level: 0 nausea: No Vomiting: No 07/31/2434 Date Acosta Murcia Signature: Date CC: Signed Normal [facility] ,Urineon 07-31-2024 Beta HCG ( test) Ql (U) Negative Normal [facility] Comment on above: Result Comment: Very dilute urine specimens, as indicated by a low specific gravity, may not contain containers sales representative levels of hCG. If is still suspected, a first morning urine specimen should be collected 48 hours later and tested. Performed By: #### L 400.7600 #### [facility] [address] [place], [place], [address] Special Stain Group Ion 12- Special Stain Group I --------- Patient Age/Sex Location Account Attending Physician MARILIN LEWIS 44/F EN [id number] Juan Diego Franco DO Specimen: [id number] Received: 07/31/24 Status: PELON Tessy Num: [id number] Spec Type: EGD BIOPSY Subm Dr: Juan Diego Franco DO HEADER OPERATION: EGD biopsy PRE-OP DIAGNOSIS: Left upper quadrant abdominal pain, fatty liver, alternating constipation and diarrhea TISSUE SUBMITTED: A- Gastric antrum biopsy, B- Duodenum biopsy, C- Distal esophagus biopsy MICROSCOPIC DIAGNOSIS A. Gastric antrum, biopsy: Mild gastritis. See microscopic description and comment. B. Duodenum, biopsy: Fragments of duodenal mucosa, no pathologic diagnosis. C. Distal esophagus, biopsy: Fragments of gastroesophageal mucosa with chronic inflammation. Intestinal metaplasia (goblet cell metaplasia) not identified. See comment. SJ.mr 08/01/2024 COMMENT A. The results of immunohistochemistry for Helicobacter pylori will be reported separately ([id number]). C. Alcian blue/PAS stain with matched control is used in the evaluation of the specimen. MICROSCOPIC DESCRIPTION Slides are reviewed. A. The specimen shows fragments of gastric mucosa with chronic inflammatory cell infiltrates in the lamina propria consisting of lymphocytes and plasma cells, consistent with mild chronic gastritis. GROSS DESCRIPTION A. Received in fixative is one container labeled with the patient's name and designated Gastric antrum biopsy. The specimen consists of two irregular fragments of light hayes soft tissue that in aggregate measure 0.8 x 0.3 x 0.1 cm. The specimen is totally submitted in one cassette. B. Received in fixative is one container labeled with the patient's name and designated Duodenum biopsy. The specimen consists of two irregular fragments of light hayes soft tissue that in aggregate measure 1.0 x 0.4 x 0.1 cm. The specimen is totally submitted in one cassette. C. Received in fixative is one container labeled with the patient's name and designated Distal esophagus biopsy. The specimen consists of multiple irregular fragments of light Patient Age/Sex Location Account Attending Physician MARILIN LEWIS/F EN [id number] Juan Diego Franco DO hayes soft tissue that in aggregate measure 0.8 x 0.4 x 0.1 cm. The specimen is totally submitted in one cassette. 07/31/2024 TC:3 CPT:40586b4,70234 Patient Age/Sex Location Account Attending Physician MARILIN LEWIS 44/F EN [id number] Juan Diego Franco DO Signed (signature on file) Dr. Tom Frias MD 08/01/24 1439 Normal [facility] Comment on above: Performed By: #### P SSI #### [facility] [address] [place], [address] Veterinary Technician Instructor Office Visit Reporton 07-29-2024 Veterinary Technician Instructor Office Visit Report [facility] [address], [address] [place] [address] OFFICE VISIT Date of Service: 07/29/24 MR#: [id number] Acct: [id number] Name: MARILIN LEWIS Rep #: [id number] : 1980 Provider: MARCK castillo Age/Sex: 44/F Location: [facility] Status: Signed with Addenda ADDENDUM by Bree Mendoza on 07/29/24 at 1526 Office Procedure Documentation entered by Bree Mendoza 07/29/24 15:26: IUD Insertion IUD GC/Chlamydia:: not done Test: Yes Negative Consent Signed: Yes Time out checklist: patient, procedure, site marked/identified, positioning of patient, supplies available, allergies confirmed and team agrees on procedure IUD: Yes Mirena IUD inserted Time out time: 15:10 Details: Sign in Communication: Completed Sign out documentation: Completed The uterus sounded to 8 cm. After prepping the cervix with betadine and using sterile technique, the cervix was grasped with a single tooth tenaculum and the IUD was inserted without difficulty and the string was cut to 3cm from the external os of the cervix. All instruments were removed from the vagina and excellent hemostasis was noted. Procedure Summary: patient tolerated the procedure well without complication. Office Meds levonorgestrel 21 mcg/24 hr (up to 8 years) 52 mg intrauterine device Performing Provider: MARCK Moulton NP Performing Location: [facility] Administered by: MARCK Moulton NP on 07/29/24 15:08 Dose Route Admin Location Dispensed Lot Number Expiration Date NDC Man ufacturer 1 insert intrauterine [facility] 1 insert [id number] 10/11/26 [id number] [employer] Date cc: * Signed Intake Vital Signs 05/06/24 08:38 07/29/24 14:53 Height 5 ft 3 in 5 ft 3 in Weight: 187 lb 4 oz BMI 33.1 BP 108/64 Intake Visit Reasons: Mirena Removal Chief Complaint: Mirena removal Cam Maker Required: No Is patient in pain?: No Allergies Iodinated Contrast Media Allergy (Verified 07/29/24 15:07) Shortness of breath Opioids - Morphine Analogues (narcotics) Adverse Reaction (Severe, Verified 07/29/24 15:07) Vomiting Medications ???Medication ???Instructions ???Recorded ???Confirmed ???Type levonorgestrel (Mirena) 1 insert intrauterine ONCE bc 01/02/18 07/29/24 History fluticasone propionate 50 1 spray intranasal DAILY #16 grams 07/19/21 07/29/24 Rx mcg/actuation nasal spray,suspension (Flonase Allergy Relief) hydroxyzine HCl 25 mg tablet 25 mg PO TID PRN anxiety #90 tabs 12/05/22 07/29/24 Rx omeprazole 40 mg capsule,delayed 40 mg PO QDAY GERD #90 caps 01/31/24 07/29/24 Rx release levalbuterol tartrate 45 2 puff inhalation Q4-6H PRN 05/06/24 07/29/24 Rx mcg/actuation aerosol inhaler shortness of breath or wheezing 3 months #15 grams sertraline 50 mg tablet (Zoloft) 50 mg PO DAILY #90 tabs 07/17/24 07/29/24 Rx Is last menstrual period known: No Post menopausal: No Patient : No : No Control [facility] Medical History Epigastric abdominal pain Contraceptive management Wears glasses Restless legs Shortness of breath on exertion Former smoker Family hx of colon cancer Headache LUQ abdominal pain Colon cancer screening Health care maintenance Left shoulder pain Chronic back pain Acute back pain Generalized anxiety disorder with panic attacks Asthmatic bronchitis with exacerbation History of COVID-19 Alcohol use Anxiety High cholesterol Migraine headache History of hiatal hernia Gastric reflux History of echocardiogram History of stress test Carpal tunnel syndrome Seasonal allergies Asthma GERD (gastroesophageal reflux disease) Surgical History History of carpal tunnel surgery of right wrist Hx of colonoscopy Hx of inguinal hernia repair History of carpal tunnel surgery of left wrist History of appendectomy History of nasal septoplasty History of tonsillectomy Family History Father COPD (chronic obstructive pulmonary disease) Anxiety Asthma Mother Obesity Sister Asthma Diabetes Grandmother Hypertension Heart disease Grandfather Colon cancer Cancer prostate and lukemia Social History household members: spouse and children number of children: 4 current occupational status: employed current occupation: [employer] sexually active: Yes Smoking Status: Former smoker alcohol intake: current alcohol intake frequency: holidays/special occasions only Alcohol type: wine subs (more content not included)... Normal [facility] CBC W/Diff, Automatedon 11-0 Absolute Lymph 1.53 X10 3/uL Normal 0.83-4.51 [facility] Comment on above: Performed By: #### L 100.0100, L501.2450, L500.4050 #### [facility] [address] [place], [address] Absolute Neut 3.1 X10 3/uL Normal 2.0-7.7 [facility] Comment on above: Performed By: #### L 100.0100, L501.2450, L500.4050 #### [facility] [address] [place], [address] Basophils/100 WBC (Bld) 0.2 % Normal 0-1 [facility] Comment on above: Performed By: #### L 100.0100, L501.2450, L500.4050 #### [facility] [address] [place], [address] Eosinophils/100 WBC (Bld) 6.7 % High 0-5 [facility] Comment on above: Performed By: #### L 100.0100, L501.2450, L500.4050 #### [facility] [address] [place], [address] Erythrocyte distribution width (RBC) [Ratio] 12.4 % Normal 11.6-14.6 [facility] Comment on above: Performed By: #### L 100.0100, L501.2450, L500.4050 #### [facility] [address] [place], [address] Hematocrit (Bld) [Volume fraction] 39.1 % Normal 37-47 [facility] Comment on above: Performed By: #### L 100.0100, L501.2450, L500.4050 #### [facility] [address] [place], [address] Hemoglobin (Bld) [Mass/Vol] 13.2 g/dL Normal 12.0-15.0 [facility] Comment on above: Performed By: #### L 100.0100, L501.2450, L500.4050 #### [facility] [address] [place], [address] IG% 0.400 Normal 0.0-0.9 [facility] Comment on above: Result Comment: IG% - Immature Granulocytes (promyelocytes, myelocytes and metamyelocytes) > 1% indicates that a LEFT SHIFT is Present. Performed By: #### L 100.0100, L501.2450, L500.4050 #### [facility] [address] [place], [address] Lymphocytes/100 WBC (Bld) 28.4 % Normal 19-41 [facility] Comment on above: Performed By: #### L 100.0100, L501.2450, L500.4050 #### [facility] [address] [place], [address] MCH (RBC) [Entitic mass] 33.5 pg High 27.0-32.0 [facility] Comment on above: Performed By: #### L 100.0100, L501.2450, L500.4050 #### [facility] [address] [place], [address] MCHC (RBC) [Mass/Vol] 33.8 g/dL Normal 32-36 [facility] Comment on above: Performed By: #### L 100.0100, L501.2450, L500.4050 #### [facility] [address] [place], [address] MCV (RBC) [Entitic vol] 99.2 fL High 81-99 [facility] Comment on above: Performed By: #### L 100.0100, L501.2450, L500.4050 #### [facility] [address] [place], [address] Monocytes/100 WBC (Bld) 7.6 % Normal 0-10 [facility] Comment on above: Performed By: #### L 100.0100, L501.2450, L500.4050 #### [facility] [address] [place], [address] Neutrophils/100 WBC (Bld) 56.7 % Normal 47-70 [facility] Comment on above: Performed By: #### L 100.0100, L501.2450, L500.4050 #### [facility] [address] [place], [address] Nucleated RBC (Bld) [#/Vol] 0 10*3/uL Normal 0-5 [facility] Comment on above: Performed By: #### L 100.0100, L501.2450, L500.4050 #### [facility] [address] [place], [address] Platelet mean volume (Bld) [Entitic vol] 9.6 fL Normal 6.2-12.0 [facility] Comment on above: Performed By: #### L 100.0100, L501.2450, L500.4050 #### [facility] [address] [place], [address] Platelets (Bld) [#/Vol] 282 10*3/uL Normal 150-450 [facility] Comment on above: Performed By: #### L 100.0100, L501.2450, L500.4050 #### [facility] [address] [place], [address] RBC (Bld) [#/Vol] 3.94 10*6/uL Low 4.2-5.4 [facility] Comment on above: Performed By: #### L 100.0100, L501.2450, L500.4050 #### [facility] [address] [place], [address] RDW SD 45.0 fl High 35.1-43.9 [facility] Comment on above: Performed By: #### L 100.0100, L501.2450, L500.4050 #### [facility] [address] [place], [address] WBC (Bld) [#/Vol] 5.4 10*3/uL Normal 4.4-11.0 [facility] Comment on above: Performed By: #### L 100.0100, L501.2450, L500.4050 #### [facility] [address] [place], [address] Comprehensive Metabolic Prof gayumiko 06-17-2024 Albumin [Mass/Vol] 3.7 g/dL Normal 3.2-5.0 [facility] Comment on above: Performed By: #### L 100.0100, L501.2450, L500.4050 #### [facility] [address] [place], [address] Albumin/Globulin [Mass ratio] 1.1 {ratio} Normal 0.9-2.4 [facility] Comment on above: Performed By: #### L 100.0100, L501.2450, L500.4050 #### [facility] [address] [place], [address] ALK P 80 U/L Normal 45-117 [facility] Comment on above: Performed By: #### L 100.0100, L501.2450, L500.4050 #### [facility] [address] [place], [address] ALT [Catalytic activity/Vol] 29 U/L Normal 13-56 [facility] Comment on above: Performed By: #### L 100.0100, L501.2450, L500.4050 #### [facility] [address] [place], [address] AST [Catalytic activity/Vol] 17 U/L Normal 15-37 [facility] Comment on above: Performed By: #### L 100.0100, L501.2450, L500.4050 #### [facility] [address] [place], [address] Bilirubin [Mass/Vol] 0.20 mg/dL Normal 0.20-1.00 [facility] Comment on above: Result Comment: For patients on eltrombopag therapy, use of Dimension [employer] TBIL is not recommended. Performed By: #### L 100.0100, L501.2450, L500.4050 #### [facility] [address] [place], [address] BUN/CRE 19.8 RATIO Normal 10-20 [facility] Comment on above: Performed By: #### L 100.0100, L501.2450, L500.4050 #### [facility] [address] [place], [address] CA,Total 9.1 mg/dL Normal 8.5-10.1 [facility] Comment on above: Performed By: #### L 100.0100, L501.2450, L500.4050 #### [facility] [address] [place], [address] Chloride [Moles/Vol] 106 mmol/L Normal 98-107 [facility] Comment on above: Performed By: #### L 100.0100, L501.2450, L500.4050 #### [facility] [address] [place], [address] CO2 [Moles/Vol] 26.0 mmol/L Normal 21.0-32.0 [facility] Comment on above: Performed By: #### L 100.0100, L501.2450, L500.4050 #### [facility] [address] [place], [address] Creatinine [Mass/Vol] 0.81 mg/dL Normal 0.55-1.02 [facility] Comment on above: Result Comment: The validity of the calculated GFR GFRAA in patients over 70 years has not been determined. Clinical correlation is essential. Performed By: #### L 100.0100, L501.2450, L500.4050 #### [facility] [address] [place], [address] EST GFR - AA 98 mL/min Normal >60 [facility] Comment on above: Result Comment: Afri can Vincentian GFR Calc Performed By: #### L 100.0100, L501.2450, L500.4050 #### [facility] [address] [place], [address] GAP 6 Normal 5-15 [facility] Comment on above: Performed By: #### L 100.0100, L501.2450, L500.4050 #### [facility] [address] [place], [address] GFR/1.73 sq M.predicted among non-blacks MDRD (S/P/Bld) [Vol rate/Area] 81 mL/min/{1.73_m2} Normal >60 [facility] Comment on above: Result Comment: Non- GFR Calc Performed By: #### L 100.0100, L501.2450, L500.4050 #### [facility] [address] [place], [address] Globulin (S) [Mass/Vol] 3.3 g/dL Normal 2.2-4.2 [facility] Comment on above: Performed By: #### L 100.0100, L501.2450, L500.4050 #### [facility] [address] [place], [address] Glucose [Mass/Vol] 103 mg/dL Normal 74-106 [facility] Comment on above: Result Comment: Fast ing Glucose result from 100 to 125 mg/dL suggests IMPAIRED HOMEOSTASIS per A.D.A. criteria. Performed By: #### L 100.0100, L501.2450, L500.4050 #### [facility] [address] [place], [address] Potassium [Moles/Vol] 4.1 mmol/L Normal 3.5-5.1 [facility] Comment on above: Performed By: #### L 100.0100, L501.2450, L500.4050 #### [facility] [address] [place], [address] Sodium [Moles/Vol] 138 mmol/L Normal 136-145 [facility] Comment on above: Performed By: #### L 100.0100, L501.2450, L500.4050 #### [facility] [address] [place], [address] T PROT 7.0 g/dL Normal 6.4-8.2 [facility] Comment on above: Performed By: #### L 100.0100, L501.2450, L500.4050 #### [facility] [address] [place], [address] Urea nitrogen [Mass/Vol] 16 mg/dL Normal 7-18 [facility] Comment on above: Performed By: #### L 100.0100, L501.2450, L500.4050 #### [facility] [address] [place], [address] Lipaseon 06-17-2024 Lipase [Catalytic activity/Vol] 32 U/L Normal 13-75 [facility] Comment on above: Result Comment: Cornel villanueva note: LIPASE revised reference range effective 22. New Lipase methodology. Expected to produce lower values than the previous assay method. NEW Reference Range: 13 - 75 U/L Performed By: #### L 100.0100, L501.2450, L500.4050 #### [facility] [address] [place], [address] Gastroenterology Visit Repor ton 06-14-2024 Gastroenterology Visit Report [facility] Gastroenterology [address] [place] [address] OFFICE VISIT Date of Service: 06/14/24 MR#: [id number] Acct: [id number] Name: MARILIN LEWIS Rep #: [id number] : 1980 Provider: KOBE Cintron Age/Sex: 44/F [place] [facility] [place]: Signed Intake Vital Signs 05/06/24 08:38 Height 5 ft 3 in Weight: 182 lb BMI 32.2 BP 120/78 Blood Pressure Location Lt brachial Position Sitting Respiration 16 Pulse 88 Pulse Source Monitor Temp 97.6 F L Temp Source Temporal Pulse Oximetry (%) 98 Oxygen Delivery Method room air Intake Visit Reasons: LEFT UPPER QUADRANT PAIN Chief Complaint: Abdominal pain Is patient in pain?: Yes Allergies Iodinated Contrast Media Allergy (Verified 05/06/24 08:30) Shortness of breath Opioids - Morphine Analogues (narcotics) Adverse Reaction (Severe, Verified 05/06/24 08:30) Vomiting Have you fallen in the past year?: No Nurse's Note: OV 06.14.24 Pt here to establish care in our office for abdominal pain, diarrhea, constipation,and blood in stools. Had a colonoscopy and EGD years ago. Takes omeprazole daily. [facility] Medical History Wears glasses Restless legs Shortness of breath on exertion Former smoker Family hx of colon cancer Headache LUQ abdominal pain Colon cancer screening Health care maintenance Left shoulder pain Chronic back pain Acute back pain Generalized anxiety disorder with panic attacks Asthmatic bronchitis with exacerbation History of COVID-19 Alcohol use Anxiety High cholesterol Migraine headache History of hiatal hernia Gastric reflux Smoker History of echocardiogram History of stress test History of irregular heartbeat Carpal tunnel syndrome Seasonal allergies Asthma GERD (gastroesophageal reflux disease) Surgical History History of carpal tunnel surgery of right wrist Hx of colonoscopy Hx of inguinal hernia repair History of carpal tunnel surgery of left wrist History of appendectomy History of nasal septoplasty History of tonsillectomy Family History Father COPD (chronic obstructive pulmonary disease) Anxiety Asthma Mother Obesity Sister Asthma Diabetes Grandmother Hypertension Heart disease Grandfather Colon cancer Cancer prostate and lukemia Social History household members: spouse and children number of children: 4 current occupational status: employed current occupation: [employer] sexually active: Yes Smoking Status: Former smoker alcohol intake: current alcohol intake frequency: holidays/special occasions only Alcohol type: wine substance use type: does not use eating out: other details: twice a month what type of physical activity do you participate in: other details: does yard work and house work seatbelt use: always do you feel safe at home: Yes HPI HPI Chief Complaint: Abdominal pain Details: MARILIN LEWIS, is a 44 F who presents to the office today for establishment with [facility]. Pt has a PMHx of fatty liver, hiatal hernia, GERD, and asthma. She has been having LUQ epigastric pain for 6 months now. The pain is intermittent and burning in nature. She has an EGD years ago and has been on a PPI since. She notices the pain is worse after eating and nothing relieves it. She still has her gallbladder. She has had no medication changes, diet changes or major life events in the last 6 months. She denies n/v, heartburn, or melena. Pt also has constipation alternating with diarrhea. Last colonoscopy in January 2024 with normal findings and recommendation for repeat in 10 years. She does not take any medications for either constipation or diarrhea. CT abdomen/pelvis from 05/2024 noting a hiatal hernia and fatty liver Colonoscopy 02.07.24; - The entire examined colon is normal on direct and retroflexion views. - No specimens collected. ROS Const Constitutional: Positive for fatigue, headache(s) and weight change; No fever(s) ENT ENT: Positive for headache(s); No difficulty swallowing Gastro GI: Positive for abdominal pain, bloating, constipation, diarrhea, heartburn and excessive flatus; No belching, change in bowel habits, change in stool character, coffee ground emesis, cramping, difficulty swallowing, feeling full early, incontinent of stools, Vomiting blood/hematemesis, Blood in stool, loose stools, Black,tarry stools, nausea/dyspepsia, pain with swallowing, vomiting or other Musc Musculoskeletal: Positive for joint pain, back pain, stiffness and restless legs Skin Skin: No yellowing of the (more content not included)... Normal [facility] Abdomen without IV Contrasto n 05-29-2024 Abdomen without IV Contrast [facility] [address] [place] [address] Abdomen without IV Contrast MR#: [id number] Acct: [id number] Name: MARILIN LEWIS Rep #: [id number] : 1980 F 44 From: Lisa Ferguson MD PCP: Dr. Michelle Mcghee MD Status: REG CLI Study: Abdomen without IV Contrast Date of Exam: 05/14 02/04 Exam# [id number] Ordering Dr: Michelle Mcghee MD [id number] INDICATION: Left upper quadrant Pain EXAMINATION: CT ABDOMEN WITHOUT CONTRAST - CT Abdomen W/O Contrast Injection TECHNIQUE: Multiple axial images were obtained of the abdomen without oral or IV contrast. The protocol utilizes one or more of the following dose reduction techniques: automated exposure control, adjustment of mA and/or kV according to patient size,and/or use of iterative reconstruction technique. IV Contrast dosage and agent: None. Oral contrast: None. RADIATION DOSAGE (If Supplied By Facility): CTDIvol = ( 13.09 ) mGy, DLP = ( 447.97 ) mGycm COMPARISON: No relevant prior comparison study available FINDINGS: LOWER CHEST: Lung bases are clear. No cardiomegaly or pericardial effusion. The lack of intravenous contrast limits evaluation of solid visceral organs. LIVER: The liver is mildly low in attenuation consistent with fatty infiltration. There is hepatomegaly. GALLBLADDER AND BILIARY TREE: No calcified gallstones. No gallbladder distension or wall edema. No intra- or extrahepatic biliary ductal dilation. PANCREAS: No focal cystic or solid mass. SPLEEN: There is a splenic granuloma visualized. ADRENAL GLANDS: No nodules. KIDNEYS AND URETERS: Normal renal size and position. No hydronephrosis or nephrolithiasis. PERITONEUM: No ascites or free air. No other fluid collection. BOWEL: There is a small hiatal hernia. No stomach or bowel distension. No focal inflammatory change. LYMPH NODES: No enlarged mesenteric or retroperitoneal lymph nodes. VESSELS: Aorta is non-dilated. ABDOMINAL WALL: No discrete abdominal wall hernia. BONES: No lytic or blastic abnormality. CT/Abdomen without IV Contrast IMPRESSION: Hiatal hernia. Fatty infiltration of the liver associated with hepatomegaly. Electronically Signed: Lisa Ferguson MD at 11:48 EDT , CC: Dr. Michelle Mcghee MD Night Custodian: Signed Normal [facility] Internal Medicine Office Vis kylah 05-06-2024 Internal Medicine Office Visit [facility] [address] [place] [address] [place] [address] OFFICE VISIT Date of Service: 05/06/24 MR#: [id number] Acct: [id number] Name: MARILIN LEWIS Rep #: [id number] : 1980 Provider: Dr. Michelle young MD Age/Sex: 44/F Location: [facility] Status: Signed Intake Vital Signs 01/31/24 10:23 04/10/24 11:00 05/06/24 08:38 Height 5 ft 3 in 5 ft 3 in 5 ft 3 in Weight: 182 lb BMI 32.2 BP 120/78 Blood Pressure Location Lt brachial Position Sitting Respiration 16 Pulse 88 Pulse Source Monitor Temp 97.6 F L Temp Source Temporal Pulse Oximetry (%) 98 Oxygen Delivery Method room air Intake Visit Reasons: 3 M FU Chief Complaint: Follow-up chronic conditions Cam Maker Required: No Is patient in pain?: No Allergies Iodinated Contrast Media Allergy (Verified 05/06/24 08:30) Shortness of breath Opioids - Morphine Analogues (narcotics) Adverse Reaction (Severe, Verified 05/06/24 08:30) Vomiting Medications ???Medication ???Instructions ???Recorded ???Confirmed ???Type levonorgestrel 21 mcg/24 hr (up to 1 insert intrauterine ONCE bc 01/02/18 05/06/24 History 8 years) 52 mg intrauterine device (Mirena) fluticasone propionate 50 1 spray intranasal DAILY #16 grams 07/19/21 05/06/24 Rx mcg/actuation nasal spray,suspension (Flonase Allergy Relief) hydroxyzine HCl 25 mg tablet 25 mg PO TID PRN anxiety #90 tabs 12/05/22 05/06/24 Rx omeprazole 40 mg capsule,delayed 40 mg PO QDAY GERD #90 caps 01/31/24 05/06/24 Rx release sertraline 50 mg tablet (Zoloft) 50 mg PO DAILY #90 tabs 03/19/24 05/06/24 Rx levalbuterol tartrate 45 2 puff inhalation Q4-6H PRN 05/06/24 05/06/24 Rx mcg/actuation aerosol inhaler shortness of breath or wheezing 3 months #15 grams PFSH Medical History Wears glasses Restless legs Shortness of breath on exertion Former smoker Family hx of colon cancer Headache LUQ abdominal pain Colon cancer screening Health care maintenance Left shoulder pain Chronic back pain Acute back pain Generalized anxiety disorder with panic attacks Asthmatic bronchitis with exacerbation History of COVID-19 Alcohol use Anxiety High cholesterol Migraine headache History of hiatal hernia Gastric reflux Smoker History of echocardiogram History of stress test History of irregular heartbeat Carpal tunnel syndrome Seasonal allergies Asthma GERD (gastroesophageal reflux disease) Surgical History History of carpal tunnel surgery of right wrist Hx of colonoscopy Hx of inguinal hernia repair History of carpal tunnel surgery of left wrist History of appendectomy History of nasal septoplasty History of tonsillectomy Family History Father COPD (chronic obstructive pulmonary disease) Anxiety Asthma Mother Obesity Sister Asthma Diabetes Grandmother Hypertension Heart disease Grandfather Colon cancer Cancer prostate and lukemia Social History household members: spouse and children number of children: 4 current occupational status: employed current occupation: [employer] sexually active: Yes Smoking Status: Former smoker alcohol intake: current alcohol intake frequency: holidays/special occasions only Alcohol type: wine substance use type: does not use eating out: other details: twice a month what type of physical activity do you participate in: other details: does yard work and house work seatbelt use: always do you feel safe at home: Yes HPI HPI Chief Complaint: Follow-up chronic conditions Details: MARILIN LEWIS, is a 44 F who presents to the office today for follow-up of her chronic medical conditions. No acute concerns at this time. At her last visit, she had reported abdominal discomfort. Epigastric area and left upper quadrant. She was started on omeprazole which helped some with her bloating/indigestion however, discomfort remains. Intermittent. Still does not have any known precipitating factors. Recently had colon cancer screening with no significant concerns noted. No change in bowel habit. No chills, fever or otherwise feeling of unwell. Other chronic medical conditions are stable. ROS Const Constitutional: No body ache, chills, excessive sweating, fatigue, fever(s), frequent falls, headache(s), snoring, weakness, sleep problems or change in appetite Eyes Eyes: No blurry vision, change in vision, bulging eyes, floaters, visual disturbances, eye pain or Light sensitivity ENT ENT: No abnormal hearing, ear or mastoid pain, tinnitus, balance (more content not included)... Normal [facility] Veterinary Technician Instructor Office Visit Reporton 04-10-2024 Veterinary Technician Instructor Office Visit Report [facility] [address], [address] [place] [address] OFFICE VISIT Date of Service: 04/10/24 MR#: [id number] Acct: [id number] Name: MARILIN LEWIS Rep #: [id number] : 1980 Provider: MARCK Cheek Age/Sex: 44/F [place] [facility] [place]: Signed Intake Vital Signs 10/09/23 08:09 02/07/24 12:48 04/10/24 10:52 04/10/24 11:00 Height 5 ft 3 in 5 ft 3 in 5 ft 3 in 5 ft 3 in Weight: 182 lb BMI 32.2 BP 129/77 H Intake Visit Reasons: 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) Chief Complaint: annual, weight gain Cam Maker Required: No Is patient in pain?: No Allergies Iodinated Contrast Media Allergy (Verified 04/10/24 10:54) Shortness of breath Opioids - Morphine Analogues (narcotics) Adverse Reaction (Severe, Verified 04/10/24 10:54) Vomiting Medications ???Medication ???Instructions ???Recorded ???Confirmed ???Type levonorgestrel 21 mcg/24 hr (up to 1 insert intrauterine ONCE bc 01/02/18 04/10/24 History 8 years) 52 mg intrauterine device (Mirena) fluticasone propionate 50 1 spray intranasal DAILY #16 grams 07/19/21 04/10/24 Rx mcg/actuation nasal spray,suspension (Flonase Allergy Relief) hydroxyzine HCl 25 mg tablet 25 mg PO TID PRN anxiety #90 tabs 12/05/22 04/10/24 Rx levalbuterol tartrate 45 2 puff inhalation Q4-6H PRN 12/29/23 04/10/24 Rx mcg/actuation aerosol inhaler shortness of breath or wheezing #15 grams omeprazole 40 mg capsule,delayed 40 mg PO QDAY GERD #90 caps 01/31/24 04/10/24 Rx release sertraline 50 mg tablet (Zoloft) 50 mg PO DAILY #90 tabs 03/19/24 04/10/24 Rx Is last menstrual period known: No Post menopausal: No Patient : No : No Control Method: mirena [facility] Medical History Wears glasses Restless legs Shortness of breath on exertion Former smoker Family hx of colon cancer Headache LUQ abdominal pain Colon cancer screening Health care maintenance Left shoulder pain Chronic back pain Acute back pain Generalized anxiety disorder with panic attacks Asthmatic bronchitis with exacerbation History of COVID-19 Alcohol use Anxiety High cholesterol Migraine headache History of hiatal hernia Gastric reflux Smoker History of echocardiogram History of stress test History of irregular heartbeat Carpal tunnel syndrome Seasonal allergies Asthma GERD (gastroesophageal reflux disease) Surgical History History of carpal tunnel surgery of right wrist Hx of colonoscopy Hx of inguinal hernia repair History of carpal tunnel surgery of left wrist History of appendectomy History of nasal septoplasty History of tonsillectomy Family History Father COPD (chronic obstructive pulmonary disease) Anxiety Asthma Mother Obesity Sister Asthma Diabetes Grandmother Hypertension Heart disease Grandfather Colon cancer Cancer prostate and lukemia Social History (Updated 04/10/24 @ 10:57 by Toyin Dos Santos) household members: spouse and children number of children: 4 current occupational status: employed current occupation: [employer] sexually active: Yes Smoking Status: Former smoker alcohol intake: current alcohol intake frequency: holidays/special occasions only Alcohol type: wine substance use type: does not use eating out: other details: twice a month what type of physical activity do you participate in: other details: does yard work and house work seatbelt use: always do you feel safe at home: Yes History 4 Elective abortions Hx Para 4 Spontaneous abortions Hx # Term Pregnancies Ectopic pregnancies Hx # Pregnancies Multiple births # of living children 4 Past Pregnancies Del. Date Name GA/Weeks Outcome Route Bth Weight Infant Gen Labor Lgth Anesthesia Del Locatn Provider SELMA 02/09/94 Jun Jameson 09/14/96 [facility] 07/29/01 Matty 01/31/03 Maria Isabel [facility] Encounter for routine gynecological examination Chief Complaint: annual, bv concerns, weight gain Details: MARILIN LEWIS is a 44 year old who presents for annual exam. She reports she feels she may have a case of BV; she reports a vaginal discharge with odor. Her discharge is a pale yellow in color intermittently. She reports this as irritating. She has a mirena in place Last PAP: 2022; normal (per patient). History of abnormal PAP: no Last mammogram: 02/2024; normal History of abnormal mammogram: no Colon cancer screenin01/2024 Other preventative health care screenings: Primary Care Doctor: Dr. Mcghee. Female Reproductive History Last Menstrual Period: 04/09/24 Cycle Length: 21-35 Questions: metorrhagia: No, sex (more content not included)... Normal [facility] SCRN MAMM (CAD)W/PATRICK BILATo n 03-08-2024 SCRN MAMM (CAD)W/PATRICK BILAT [facility] [address] [place] [address] [id number] SCRN MAMM (CAD)W/PATRICK BILAT MR#: [id number] Acct: [id number] Name: MARILIN LEWIS Rep #: [id number] : 1980 F 44 From: Arvind paris MD PCP: Dr. Michelle Mcghee MD Status: [facility] Study: SCRN MAMM (CAD)W/PATRICK BILAT Date of Exam: 02/12 02/04 Exam# [id number] Ordering Dr: Michelle Mcghee MD [id number] MAMMOGRAPHY - BILATERAL SCREENING REASON FOR EXAM: Female, 44 years old. Routine annual screening examination. PERTINENT HISTORY: Non-contributory. TECHNIQUE: Digital bilateral breast patrick (3D mammographic acquisition) in the CC and MLO projections. 2-D mediolateral oblique (MLO) and craniocaudad (CC) views of both breasts were obtained. CAD: Full Field Digital Mammography with Computer Added Detection was performed. COMPARISON: Comparison is made with prior study November 16, 2022 and May 04, 2020. FINDINGS: Breast Composition: The breasts are heterogeneously dense, which may obscure small masses. There are no dominant masses or suspicious calcifications. Stable bilateral fat containing axillary lymph nodes. No other significant abnormalities are identified. There has been no significant change since the prior study. BI/SCRN MAMM (CAD)W/PATRICK BILAT IMPRESSION: Stable bilateral screening mammogram. Yearly follow-up mammogram recommended. (A) ASSESSMENT CATEGORY: BIRADS Category 2: Benign. A letter regarding these results will be sent to the patient by the facility within 30 days. Approximately 10% of breast cancers are not detected by mammography. A normal mammogram should not delay biopsy of a clinically suspicious abnormality. [id number] Electronically Signed: Arvind Moore MD at 14:51 EDT , CC: Dr. Michelle Mcghee MD Night Custodian: Signed Normal [facility] Basophil percentageOrdered B y: Dr. Mcghee on 01-26-2023 Cholesterol [Mass/Vol] 276 mg/dL <200 [facility] Comment on above: <200 mg/dL Desirable 200-240 mg/dL Borderline >240 mg/dL High Risk Triglyceride [Mass/Vol] 95 mg/dL <199 [facility] Comment on above: The drugs N-Acetylcy steine and Metamizole may falsely depress this assay.Serum Triglycerides Reference Interval Normal <150 mg/dL Borderline high 150 - 199 mg/dL High 200 - 499 mg/dL Very High > or = 500 mg/dL Serum or plasma cholesterol in HDL measurement (mass/volume)Ordered By: Dr. Mcghee on 01-26-2023 Cholesterol in HDL [Mass/Vol] 99 mg/dL >40 [facility] Comment on above: The drugs N-Acetylcy steine and Metamizole may falsely depress this assay. Reference Range HDL <40 mg/dL Low HDL Cholesterol HDL >or= 60 mg/dL High HDL Cholesterol Serum or plasma cholesterol in VLDL measurement (mass/volume)Ordered By: Dr. Mcghee on 01-26-2023 Cholesterol in VLDL [Mass/Vol] 19 mg/dL 5-40 [facility] Serum or plasma low density lipoprotein (LDL) cholesterol measurement (mass/volume)Ordered By: Dr. Mcghee on 01-26-2023 Cholesterol in LDL [Mass/Vol] 158 mg/dL 0-130 [facility] Absolute lymphocyte countOrd ered By: ED PROVIDER on 01-20-2023 Lymphocytes Auto (Unsp spec) [#/Vol] 1.73 10*3/uL 0.83-4.51 [facility] Basophil percentageOrdered B y: ED PROVIDER on 01-20-2023 Basophils/100 WBC (Bld) 0.2 % 0-1 [facility] Bilirubin [Mass/Vol] 0.40 mg/dL 0.20-1.00 [facility] Comment on above: For patients on eltr ombopag therapy, use of Dimension [employer] TBIL is not recommended. Chloride [Moles/Vol] 105 mmol/L 98-107 [facility] Eosinophils/100 WBC (Bld) 3.0 % 0-5 [facility] Glucose [Mass/Vol] 92 mg/dL 74-106 [facility] Neutrophils (Bld) [#/Vol] 3.4 10*3/uL 2.0-7.7 [facility] Neutrophils/100 WBC (Bld) 58.5 % 47-70 [facility] Potassium [Moles/Vol] 4.3 mmol/L 3.5-5.1 [facility] Comment on above: Moderate Hemolysis, Result may be falsely increased. Protein [Mass/Vol] 7.0 g/dL 6.4-8.2 [facility] Sodium [Moles/Vol] 137 mmol/L 136-145 [facility] WBC (Bld) [#/Vol] 5.7 10*3/uL 4.4-11.0 [facility] Basophil percentage 0 SEEN /hpf 0-5 [facility] Beta hCG serum qualOrdered B y: ED PROVIDER on 01-20-2023 Beta HCG ( test) Ql Negative [facility] Bilirubin Test strip Ql (U)O rdered By: ED PROVIDER on 01-20-2023 Bilirubin Ql (U) Negative Negative [facility] Blood erythrocytes count (nu mber/volume)Ordered By: ED PROVIDER on 01-20-2023 RBC (Bld) [#/Vol] 4.46 10*6/uL 4.2-5.4 [facility] Blood hemoglobin measurement (mass/volume)Ordered By: ED PROVIDER on 01-20-2023 Hemoglobin (Bld) [Mass/Vol] 15.2 g/dL 12.0-15.0 [facility] Blood lymphocytes/100 leukoc ytesOrdered By: ED PROVIDER on 01-20-2023 Lymphocytes/100 WBC (Bld) 30.1 % 19-41 [facility] Blood monocytes/100 leukocyt esOrdered By: ED PROVIDER on 01-20-2023 Monocytes/100 WBC (Bld) 8.0 % 0-10 [facility] Blood platelet mean volumeOr dered By: ED PROVIDER on 01-20-2023 Platelet mean volume (Bld) [Entitic vol] 9.2 fL 6.2-12.0 [facility] Determination of erythrocyte mean corpuscular volume (MCV)Ordered By: ED PROVIDER on 01-20-2023 MCV (RBC) [Entitic vol] 99.3 fL 81-99 [facility] Hematocrit Auto (Bld) [Volum e fraction]Ordered By: ED PROVIDER on 01-20-2023 Hematocrit (Bld) [Volume fraction] 44.3 % 37-47 [facility] Ketones Test strip Ql (U)Ord ered By: ED PROVIDER on 01-20-2023 Ketones Ql (U) Negative Negative [facility] Laboratory - Chemistry and C hemistry - challengeOrdered By: ED PROVIDER on 01-20-2023 ALP [Catalytic activity/Vol] 60 U/L 45-117 [facility] ALT [Catalytic activity/Vol] 22 U/L 13-56 [facility] CO2 [Moles/Vol] 25.0 mmol/L 21.0-32.0 [facility] Globulin (S) [Mass/Vol] 3.2 g/dL 2.2-4.2 [facility] Urea nitrogen/Creatinine [Mass ratio] 15.0 mg/mg 10-20 [facility] Laboratory - Chemistry and C hemistry - challengeOrdered By: Dr. Wong on 01-20-2023 Lipase [Catalytic activity/Vol] 16 U/L 13-75 [facility] Comment on above: Please note:LIPASE r evised reference range effective 22. New Lipase methodology. Expected to produce lower values than the previous assay method. NEW Reference Range: 13 - 75 U/L Laboratory - Hematology and Cell countsOrdered By: ED PROVIDER on 01-20-2023 Erythrocyte distribution width (RBC) [Entitic vol] 45.9 fL 35.1-43.9 [facility] Erythrocyte distribution width (RBC) [Ratio] 12.4 % 11.6-14.6 [facility] Immature granulocytes/100 WBC (Bld) 0.200 % 0.0-0.9 [facility] Comment on above: IG% - Immature Granu locytes (promyelocytes, myelocytes and metamyelocytes) > 1% indicates that a LEFT SHIFT is Present. MCH (RBC) [Entitic mass] 34.1 pg 27.0-32.0 [facility] Nucleated RBC/100 WBC (Bld) [Ratio] 0 % 0-5 [facility] MCHC Auto (RBC) [Mass/Vol]Or dered By: ED PROVIDER on 01-20-2023 MCHC (RBC) [Mass/Vol] 34.3 g/dL 32-36 [facility] Mucus LM Ql (Urine sed)Order ed By: ED PROVIDER on 01-20-2023 Mucus Ql (Urine sed) 0 SEEN /hpf [facility] Nitrite Test strip Ql (U)Ord ered By: ED PROVIDER on 01-20-2023 Nitrite Ql (U) Negative Negative [facility] No Panel InformationOrdered By: ED PROVIDER on 01-20-2023 Estimated Creatinine Clearance Calc 75.01 ml/min [facility] Estimated GFR (MDRD) Amer 100 mL/min >60 [facility] Comment on above: GFR Calc Estimated GFR (MDRD) Non-Af Amer 83 mL/min >60 [facility] Comment on above: Non- GFR Calc Platelets bldOrdered By: ED PROVIDER on 01-20-2023 Platelets (Bld) [#/Vol] 251 10*3/uL 150-450 [facility] Protein Test strip Ql (U)Ord ered By: ED PROVIDER on 01-20-2023 Protein Ql (U) Negative Negative [facility] Serum or plasma albumin jennifer urement (mass/volume)Ordered By: ED PROVIDER on 01-20-2023 Albumin [Mass/Vol] 3.8 g/dL 3.2-5.0 [facility] Serum or plasma albumin/glob ulin mass ratioOrdered By: ED PROVIDER on 01-20-2023 Albumin/Globulin [Mass ratio] 1.2 {ratio} 0.9-2.4 [facility] Serum or plasma calcium jennifer urement (mass/volume)Ordered By: ED PROVIDER on 01-20-2023 Calcium [Mass/Vol] 9.0 mg/dL 8.5-10.1 [facility] Serum or plasma creatinine m easurement (mass/volume)Ordered By: ED PROVIDER on 01-20-2023 Creatinine [Mass/Vol] 0.80 mg/dL 0.55-1.02 [facility] Comment on above: The validity of the calculated GFR & GFRAA in patients over 70 years has not been determined. Clinical correlation is essential. Serum or plasma urea nitroge n measurement (mass/volume)Ordered By: ED PROVIDER on 01-20-2023 Urea nitrogen [Mass/Vol] 12 mg/dL 7-18 [facility] Squamous epithelial cells de tection in urine sediment by light microscopyOrdered By: ED PROVIDER on 01-20-2023 Epithelial cells.squamous LM Ql (Urine sed) 0 SEEN /hpf 5-10 [facility] Thin prep Papanicolaou smear with manual screeningOrdered By: ED PROVIDER on 01-20-2023 Thin prep Papanicolaou smear with manual screening 20 U/L 15-37 [facility] Comment on above: Moderate Hemolysis, Result may be falsely increased. Thin prep Papanicolaou smear with manual screening 7 5-15 [facility] Urine blood detectionOrdered By: ED PROVIDER on 01-20-2023 RBC Ql (U) Negative Negative [facility] RBC Ql (U) 0 SEEN /hpf 0-5 [facility] Urine clarityOrdered By: ED PROVIDER on 01-20-2023 Clarity (U) Clear Clear [facility] Urine color determinationOrd ered By: ED PROVIDER on 01-20-2023 Color (U) Yellow Yellow [facility] Urine glucose detectionOrder ed By: ED PROVIDER on 01-20-2023 Glucose Ql (U) Normal mg/dl Normal [facility] Urine leukocyte esterase det ection by dipstickOrdered By: ED PROVIDER on 01-20-2023 Leukocyte esterase Test strip Ql (U) Negative Negative [facility] Urine pHOrdered By: ED PROVI CIELO on 01-20-2023 pH (U) 6.0 [pH] 5.0 - 8.0 [facility] Urine sediment bacteria coun t by microscopy (number/high power field)Ordered By: ED PROVIDER on 01-20-2023 Bacteria LM.HPF (Urine sed) [#/Area] 0 /[HPF] None Seen [facility] Urine specific gravity measu rementOrdered By: ED PROVIDER on 01-20-2023 Specific gravity (U) [Rel density] 1.020 1.002-1.03 0 [facility] Urobilinogen Auto test strip Ql (U)Ordered By: ED PROVIDER on 01-20-2023 Urobilinogen Ql (U) Normal mg/dl Normal [facility] Reporton 2022 [facility] . Pathology Reports Accession: Collected Date/Time: Received Date/Time: Pathologist: [id number] 09/28/2022 10:35 EST 09/28/2022 18:00 EST [facility] SPECIMEN: Specimen Description: Liquid Prep w/ HPV Specimen: Cervical/Endocervical Screening or Diagnostic: Screening RELEVANT HISTORY: LMP: n/a IUD: Yes [id number] SPECIMEN ADEQUACY: SATISFACTORY FOR EVALUATION Endocervical/Transformation al zone component present INTERPRETATION/RESULTS: NEGATIVE FOR INTRAEPITHELIAL LESION OR MALIGNANCY HIGH RISK HPV TESTING: Event Code Result HPV Interp See Interp HPVN HPV Interp Text: High Risk HPV Typing: NEGATIVE HPV types 16, 18, 31, 33, 35, 39, 45, 51, 52, 56, 58, 59, 66 and 68 DNA were undetectable or below the pre-set threshold. The megan High-Risk HPV DNA Test is not intended for use as a screening device for Pap normal women under age 30 and is not intended to substitute for regular Pap screening. The megan High-Risk HPV DNA Test is designed to augment existing methods for the detection of cervical disease and should be used in conjunction with clinical information derived from other diagnostic and screening tests, physical examinations and full medical history in accordance with appropriate patient management procedures. NOTE: A negative result does not preclude the presence of HPV infection because results depend on adequate specimen collection, absence of inhibitors and sufficient DNA to be detected. As of: 10/06/22 14:46 EST COMMENT: This Pap Test was successfully processed and evaluated with the assistance of the BantrPrep Test Imaging System. Pathology Reports Accession: Collected Date/Time: Received Date/Time: Pathologist: [id number] 09/28/2022 10:35 EST 09/28/2022 18:00 EST Electronically Signed by Pathology report verified by [facility] Screened by: [place] Electronically signed by Janet MONTES (ASCP) Sign-Out Date: 10/06/2022 14:46 Performing Lab: [facility], [address] [place] [address] Pathology Dept Disclaimer The Pap test is a screening test for cervical cancer. As evidenced by published data, it is subject to both inherent false negative and false positive results. Your patient's results should be interpreted in context with pertinent clinical history including gynecological examination. Normal [facility] ([place] HPVon 10-06-2022 HPV Interp Normal See Interp HPVN [facility] [place] Comment on above: Order Comment: Order placed by AP_HPV_ORDER rule from [id number] Result Comment: High Risk HPV Typing: NEGATIVE HPV types 16, 18, 31, 33, 35, 39, 45, 51, 52, 56, 58, 59, 66 and 68 DNA were undetectable or below the pre-set threshold. The megan High-Risk HPV DNA Test is not intended for use as a screening device for Pap normal women under age 30 and is not intended to substitute for regular Pap screening. The megan High-Risk HPV DNA Test is designed to augment existing methods for the detection of cervical disease and should be used in conjunction with clinical information derived from other diagnostic and screening tests, physical examinations and full medical history in accordance with appropriate patient management procedures. NOTE: A negative result does not preclude the presence of HPV infection because results depend on adequate specimen collection, absence of inhibitors and sufficient DNA to be detected. See Interp HPVN Performed By: #### H PV #### [address] [address] HPV Source Cervix Normal [facility] ([place]) Comment on above: Order Comment: Order placed by AP_HPV_ORDER rule from [id number] Performed By: #### H PV #### [address] [address] No Panel InformationOrdered By: Alfredo Varghese on 09-28-2022 Affirm Pathogens DNA Direct Probe Gardnerella vaginalis DNA Probe Positive Trichomonas vaginalis DNA Probe Negative Etelvina species DNA Probe Negative [facility] Absolute lymphocyte countOrd ered By: Dr. Mcghee on 09-01-2022 Lymphocytes Auto (Unsp spec) [#/Vol] 2.43 10*3/uL 0.83-4.51 [facility] Basophil percentageOrdered B y: Dr. Mcghee on 09-01-2022 Basophils/100 WBC (Bld) 0.2 % 0-1 [facility] Bilirubin [Mass/Vol] 0.30 mg/dL 0.20-1.00 [facility] Comment on above: For patients on eltr ombopag therapy, use of Dimension [employer] TBIL is not recommended. Chloride [Moles/Vol] 104 mmol/L 98-107 [facility] Eosinophils/100 WBC (Bld) 3.2 % 0-5 [facility] Glucose [Mass/Vol] 85 mg/dL 74-106 [facility] Neutrophils (Bld) [#/Vol] 3.1 10*3/uL 2.0-7.7 [facility] Neutrophils/100 WBC (Bld) 50.0 % 47-70 [facility] Potassium [Moles/Vol] 4.2 mmol/L 3.5-5.1 [facility] Protein [Mass/Vol] 7.1 g/dL 6.4-8.2 [facility] Sodium [Moles/Vol] 137 mmol/L 136-145 [facility] WBC (Bld) [#/Vol] 6.2 10*3/uL 4.4-11.0 [facility] Blood erythrocytes count (nu mber/volume)Ordered By: Dr. Mcghee on 09-01-2022 RBC (Bld) [#/Vol] 4.18 10*6/uL 4.2-5.4 [facility] Blood hemoglobin measurement (mass/volume)Ordered By: Dr. Mcghee on 09-01-2022 Hemoglobin (Bld) [Mass/Vol] 14.5 g/dL 12.0-15.0 [facility] Blood lymphocytes/100 leukoc ytesOrdered By: Dr. Mcghee on 09-01-2022 Lymphocytes/100 WBC (Bld) 38.9 % 19-41 [facility] Blood monocytes/100 leukocyt esOrdered By: Dr. Mcghee on 09-01-2022 Monocytes/100 WBC (Bld) 7.4 % 0-10 [facility] Blood platelet mean volumeOr dered By: Dr. Mcghee on 09-01-2022 Platelet mean volume (Bld) [Entitic vol] 9.7 fL 6.2-12.0 [facility] Determination of erythrocyte mean corpuscular volume (MCV)Ordered By: Dr. Mcghee on 09-01-2022 MCV (RBC) [Entitic vol] 102.4 fL 81-99 [facility] Hematocrit Auto (Bld) [Volum e fraction]Ordered By: Dr. Mcghee on 09-01-2022 Hematocrit (Bld) [Volume fraction] 42.8 % 37-47 [facility] Laboratory - Chemistry and C hemistry - challengeOrdered By: Dr. Mcghee on 09-01-2022 ALP [Catalytic activity/Vol] 64 U/L 45-117 [facility] ALT [Catalytic activity/Vol] 26 U/L 13-56 [facility] CO2 [Moles/Vol] 27.0 mmol/L 21.0-32.0 [facility] Free T4 [Mass/Vol] 1.01 ng/dL 0.76-1.46 [facility] Globulin (S) [Mass/Vol] 3.4 g/dL 2.2-4.2 [facility] Urea nitrogen/Creatinine [Mass ratio] 15.4 mg/mg 10-20 [facility] Laboratory - Hematology and Cell countsOrdered By: Dr. Mcghee on 09-01-2022 Erythrocyte distribution width (RBC) [Entitic vol] 45.2 fL 35.1-43.9 [facility] Erythrocyte distribution width (RBC) [Ratio] 12.0 % 11.6-14.6 [facility] Immature granulocytes/100 WBC (Bld) 0.300 % 0.0-0.9 [facility] Comment on above: IG% - Immature Granu locytes (promyelocytes, myelocytes and metamyelocytes) > 1% indicates that a LEFT SHIFT is Present. MCH (RBC) [Entitic mass] 34.7 pg 27.0-32.0 [facility] Nucleated RBC/100 WBC (Bld) [Ratio] 0 % 0-5 [facility] MCHC Auto (RBC) [Mass/Vol]Or dered By: Dr. Mcghee on 09-01-2022 MCHC (RBC) [Mass/Vol] 33.9 g/dL 32-36 [facility] No Panel InformationOrdered By: Dr. Mcghee on 09-01-2022 Estimated GFR (MDRD) Amer 114 mL/min >60 [facility] Comment on above: GFR Calc Estimated GFR (MDRD) Non-Af Amer 94 mL/min >60 [facility] Comment on above: Non- GFR Calc Thyroid Stimulating Hormone (TSH) 1.78 uIU/mL 0.358-3.74 [facility] Platelets bldOrdered By: Dr. Mcghee on 09-01-2022 Platelets (Bld) [#/Vol] 305 10*3/uL 150-450 [facility] Serum or plasma albumin jennifer urement (mass/volume)Ordered By: Dr. Mcghee on 09-01-2022 Albumin [Mass/Vol] 3.7 g/dL 3.2-5.0 [facility] Serum or plasma albumin/glob ulin mass ratioOrdered By: Dr. Mcghee on 09-01-2022 Albumin/Globulin [Mass ratio] 1.1 {ratio} 0.9-2.4 [facility] Serum or plasma calcium jennifer urement (mass/volume)Ordered By: Dr. Mcghee on 09-01-2022 Calcium [Mass/Vol] 8.8 mg/dL 8.5-10.1 [facility] Serum or plasma creatinine m easurement (mass/volume)Ordered By: Dr. Mcghee on 09-01-2022 Creatinine [Mass/Vol] 0.72 mg/dL 0.55-1.02 [facility] Comment on above: The validity of the calculated GFR & GFRAA in patients over 70 years has not been determined. Clinical correlation is essential. Serum or plasma urea nitroge n measurement (mass/volume)Ordered By: Dr. Mcghee on 09-01-2022 Urea nitrogen [Mass/Vol] 11 mg/dL 7-18 [facility] Thin prep Papanicolaou smear with manual screeningOrdered By: Dr. Mcghee on 09-01-2022 Thin prep Papanicolaou smear with manual screening 16 U/L 15-37 [facility] Thin prep Papanicolaou smear with manual screening 6 5-15 [facility] IR LYMPH AB PEL BILon 2020 IR LYMPH AB PEL DIAMOND * * *Final Report* * * DATE OF EXAM: Jun 21 2021 12:36PM [facility] [id number] - IR LYMPH AB PEL DIAMOND / PROCEDURE REASON: PAIN * * * * Physician Interpretation * * * * 1. BILATERAL DIRECT INTRANODAL ACCESS AND INJECTION OF GADOLINIUM VIA GROIN LYMPH NODES 2. MRI and MRA/DYNAMIC MR LYMPHANGIOGRAM OF THE CHEST, ABDOMEN AND PELVIS HISTORY: Intermittent left neck swelling and abdominal swelling concerning for central conducting lymphatic abnormality. On the day of the study, however, the patient had no neck or abdominal swelling. BILATERAL DIRECT INTRANODAL ACCESS AND INJECTION OF GADOLINIUM: CONSENT: Risks, benefits, treatment options, potential complications and personnel to be involved were discussed (including the risks of radiation exposure, contrast and anesthesia administration, and any equipment needed for the procedure to ensure best possible outcome) with the patient and all questions were answered and consent was obtained prior to procedure. MEDICATION RECONCILIATION: The patient's medications and allergies were reviewed in the electronic medical record and reconciled to the proposed procedure/treatment. HORTENCIA-PROCEDURE DISCUSSION: The appropriate elements of the pre-procedure discussion, safety check list and sign-out were performed. TIME OUT: A time out was performed immediately prior to procedure start with the nursing, and interventional team, correctly identifying the name, date of , procedure, anatomy (including marking of site and side if applicable), patient position, procedure consent form, relevant diagnostic and radiology test results, antibiotic administration if applicable, safety precautions, and procedure-specific equipment needs. Start of procedure (Time out): 0932 (start of needle placement) End of procedure (Sign out): 1236 (end of needle placement) Patient position: Supine Anesthesia: None Physician Intra-Service time in minutes (first dose of sedation to end of procedure): 0 Local anesthesia: None ANTIBIOTICS: None Antibiotic infusion start time: N/A CONTRAST DOSE: 16 cc of Multihance was injected into the groin lymph nodes. IMAGE GUIDANCE: Fluoroscopic and sonographic guidance was used. Ultrasound demonstrated patency of the target vein without filling defects. Access was obtained under direct sonographic visualization. A sonographic image of the vessel was obtained and placed into the permanent archive for documentation. TECHNIQUE: The patient was prepped and draped using all elements of maximal sterile barrier technique (cap, mask, sterile gown, sterile gloves, a large sterile sheet, hand hygiene and cutaneous antisepsis), sterile ultrasound gel and sterile ultrasound probe covers. Using ultrasound guidance, a lymph node in the left groin was accessed using a 25G needle and tip was positioned in the transitional zone between the cortex and hilum of the lymph node. The needle was connected to extension tubing and a Dotarem contrast in a syringe. Using ultrasound guidance, a lymph node in the right groin was accessed using a 25G needle and tip was positioned in the transitional zone between the cortex and hilum of the lymph node. The needle was connected to extension tubing and a Dotarem contrast in a syringe. Sterile dressings were applied and patient was transferred to MRI for scan. After the MRI, needle was removed and sterile dressings were applied. The patient tolerated the procedure well. There were no significant complications and no other complications during the procedure. CONCLUSION: The patient was comfortable and was transferred to the recovery room in stable condition. Estimated Blood Loss: Minimal Number and Type of Removed Specimens: none ATTENDING RADIOLOGIST: Noe Vieira M.D LINEN CLERK: None The procedure was performed by the: Entire procedure The attending radiologist performed the following procedural activities: Entire procedure MRI and MRA OF THE CHEST ABDOMEN, PELVIS, AND BILATERAL LOWER EXTREMITIES Technique: Siemens Skyra 3.0 [place] MRI scanner. * Axial TrueFISP VIBE * Coronal VIBE * Contrast-enhanced volume sets acquired for three-dimensional MRA reconstructions during hand injection of gadolinium-chelate simultaneously via both lymph nodes (Dotarem total 12 cc) * Post-Parminder axial VIBE, Coronal VIBE During the MRI, the system stopped functioning few times and had to be restarted, thus extending the overall duration of the scan for the patient. RESULT: COMPARISON: 05/14/2020. Lymphatics: - Small 12 x 4 mm focal dilation is seen in the distal thoracic duct in the left supra-clavicular region - The rest of the thoracic duct is normal in appearance and is patent and drains normally. - There are no cystic changes in the right retroperitoneal lymphatics or in the chest - There is no leak in the abdomen, chest or the neck - Previously seen retroperitoneal i (more content not included)... Normal [facility] MRA ABDOMEN WO/W IVCONon MRA ABDOMEN WO/W IVCON * * *Final Report * * * DATE OF EXAM: Jun 21 2021 12:31PM [facility] [id number] - MRA ABDOMEN WO/W IVCON / PROCEDURE REASON: Vascular malformation * * * * Physician Interpretation * * * * 1. BILATERAL DIRECT INTRANODAL ACCESS AND INJECTION OF GADOLINIUM VIA GROIN LYMPH NODES 2. MRI and MRA/DYNAMIC MR LYMPHANGIOGRAM OF THE CHEST, ABDOMEN AND PELVIS HISTORY: Intermittent left neck swelling and abdominal swelling concerning for central conducting lymphatic abnormality. On the day of the study, however, the patient had no neck or abdominal swelling. BILATERAL DIRECT INTRANODAL ACCESS AND INJECTION OF GADOLINIUM: CONSENT: Risks, benefits, treatment options, potential complications and personnel to be involved were discussed (including the risks of radiation exposure, contrast and anesthesia administration, and any equipment needed for the procedure to ensure best possible outcome) with the patient and all questions were answered and consent was obtained prior to procedure. MEDICATION RECONCILIATION: The patient's medications and allergies were reviewed in the electronic medical record and reconciled to the proposed procedure/treatment. HORTENCIA-PROCEDURE DISCUSSION: The appropriate elements of the pre-procedure discussion, safety check list and sign-out were performed. TIME OUT: A time out was performed immediately prior to procedure start with the nursing, and interventional team, correctly identifying the name, date of , procedure, anatomy (including marking of site and side if applicable), patient position, procedure consent form, relevant diagnostic and radiology test results, antibiotic administration if applicable, safety precautions, and procedure-specific equipment needs. Start of procedure (Time out): 0932 (start of needle placement) End of procedure (Sign out): 1236 (end of needle placement) Patient position: Supine Anesthesia: None Physician Intra-Service time in minutes (first dose of sedation to end of procedure): 0 Local anesthesia: None ANTIBIOTICS: None Antibiotic infusion start time: N/A CONTRAST DOSE: 16 cc of Multihance was injected into the groin lymph nodes. IMAGE GUIDANCE: Fluoroscopic and sonographic guidance was used. Ultrasound demonstrated patency of the target vein without filling defects. Access was obtained under direct sonographic visualization. A sonographic image of the vessel was obtained and placed into the permanent archive for documentation. TECHNIQUE: The patient was prepped and draped using all elements of maximal sterile barrier technique (cap, mask, sterile gown, sterile gloves, a large sterile sheet, hand hygiene and cutaneous antisepsis), sterile ultrasound gel and sterile ultrasound probe covers. Using ultrasound guidance, a lymph node in the left groin was accessed using a 25G needle and tip was positioned in the transitional zone between the cortex and hilum of the lymph node. The needle was connected to extension tubing and a Dotarem contrast in a syringe. Using ultrasound guidance, a lymph node in the right groin was accessed using a 25G needle and tip was positioned in the transitional zone between the cortex and hilum of the lymph node. The needle was connected to extension tubing and a Dotarem contrast in a syringe. Sterile dressings were applied and patient was transferred to MRI for scan. After the MRI, needle was removed and sterile dressings were applied. The patient tolerated the procedure well. There were no significant complications and no other complications during the procedure. CONCLUSION: The patient was comfortable and was transferred to the recovery room in stable condition. Estimated Blood Loss: Minimal Number and Type of Removed Specimens: none ATTENDING RADIOLOGIST: Noe Vieira M.D LINEN CLERK: None The procedure was performed by the: Entire procedure The attending radiologist performed the following procedural activities: Entire procedure MRI and MRA OF THE CHEST ABDOMEN, PELVIS, AND BILATERAL LOWER EXTREMITIES Technique: Siemens Skyra 3.0 [place] MRI scanner. * Axial TrueFISP VIBE * Coronal VIBE * Contrast-enhanced volume sets acquired for three-dimensional MRA reconstructions during hand injection of gadolinium-chelate simultaneously via both lymph nodes (Dotarem total 12 cc) * Post-Parminder axial VIBE, Coronal VIBE During the MRI, the system stopped functioning few times and had to be restarted, thus extending the overall duration of the scan for the patient. RESULT: COMPARISON: 05/14/2020. Lymphatics: - Small 12 x 4 mm focal dilation is seen in the distal thoracic duct in the left supra-clavicular region - The rest of the thoracic duct is normal in appearance and is patent and drains normally. - There are no cystic changes in the right retroperitoneal lymphatics or in the chest - There is no leak in the abdomen, chest or the neck - Previously se (more content not included)... Normal [facility] MRA CHEST CARDVASC WO/W IVCO Non 06-21-2021 MRA CHEST CARDVASC WO/W IVCON * * *Final Report* * * DATE OF EXAM: Jun 21 2021 12:31PM [facility] [id number] - MRA CHEST CARDVASC WO/W IVCON / PROCEDURE REASON: Vascular malformation * * * * Physician Interpretation * * * * 1. BILATERAL DIRECT INTRANODAL ACCESS AND INJECTION OF GADOLINIUM VIA GROIN LYMPH NODES 2. MRI and MRA/DYNAMIC MR LYMPHANGIOGRAM OF THE CHEST, ABDOMEN AND PELVIS HISTORY: Intermittent left neck swelling and abdominal swelling concerning for central conducting lymphatic abnormality. On the day of the study, however, the patient had no neck or abdominal swelling. BILATERAL DIRECT INTRANODAL ACCESS AND INJECTION OF GADOLINIUM: CONSENT: Risks, benefits, treatment options, potential complications and personnel to be involved were discussed (including the risks of radiation exposure, contrast and anesthesia administration, and any equipment needed for the procedure to ensure best possible outcome) with the patient and all questions were answered and consent was obtained prior to procedure. MEDICATION RECONCILIATION: The patient's medications and allergies were reviewed in the electronic medical record and reconciled to the proposed procedure/treatment. HORTENCIA-PROCEDURE DISCUSSION: The appropriate elements of the pre-procedure discussion, safety check list and sign-out were performed. TIME OUT: A time out was performed immediately prior to procedure start with the nursing, and interventional team, correctly identifying the name, date of , procedure, anatomy (including marking of site and side if applicable), patient position, procedure consent form, relevant diagnostic and radiology test results, antibiotic administration if applicable, safety precautions, and procedure-specific equipment needs. Start of procedure (Time out): 0932 (start of needle placement) End of procedure (Sign out): 1236 (end of needle placement) Patient position: Supine Anesthesia: None Physician Intra-Service time in minutes (first dose of sedation to end of procedure): 0 Local anesthesia: None ANTIBIOTICS: None Antibiotic infusion start time: N/A CONTRAST DOSE: 16 cc of Multihance was injected into the groin lymph nodes. IMAGE GUIDANCE: Fluoroscopic and sonographic guidance was used. Ultrasound demonstrated patency of the target vein without filling defects. Access was obtained under direct sonographic visualization. A sonographic image of the vessel was obtained and placed into the permanent archive for documentation. TECHNIQUE: The patient was prepped and draped using all elements of maximal sterile barrier technique (cap, mask, sterile gown, sterile gloves, a large sterile sheet, hand hygiene and cutaneous antisepsis), sterile ultrasound gel and sterile ultrasound probe covers. Using ultrasound guidance, a lymph node in the left groin was accessed using a 25G needle and tip was positioned in the transitional zone between the cortex and hilum of the lymph node. The needle was connected to extension tubing and a Dotarem contrast in a syringe. Using ultrasound guidance, a lymph node in the right groin was accessed using a 25G needle and tip was positioned in the transitional zone between the cortex and hilum of the lymph node. The needle was connected to extension tubing and a Dotarem contrast in a syringe. Sterile dressings were applied and patient was transferred to MRI for scan. After the MRI, needle was removed and sterile dressings were applied. The patient tolerated the procedure well. There were no significant complications and no other complications during the procedure. CONCLUSION: The patient was comfortable and was transferred to the recovery room in stable condition. Estimated Blood Loss: Minimal Number and Type of Removed Specimens: none ATTENDING RADIOLOGIST: Noe Vieira M.D LINEN CLERK: None The procedure was performed by the: Entire procedure The attending radiologist performed the following procedural activities: Entire procedure MRI and MRA OF THE CHEST ABDOMEN, PELVIS, AND BILATERAL LOWER EXTREMITIES Technique: Siemens Skyra 3.0 [place] MRI scanner. * Axial TrueFISP VIBE * Coronal VIBE * Contrast-enhanced volume sets acquired for three-dimensional MRA reconstructions during hand injection of gadolinium-chelate simultaneously via both lymph nodes (Dotarem total 12 cc) * Post-Parminder axial VIBE, Coronal VIBE During the MRI, the system stopped functioning few times and had to be restarted, thus extending the overall duration of the scan for the patient. RESULT: COMPARISON: 05/14/2020. Lymphatics: - Small 12 x 4 mm focal dilation is seen in the distal thoracic duct in the left supra-clavicular region - The rest of the thoracic duct is normal in appearance and is patent and drains normally. - There are no cystic changes in the right retroperitoneal lymphatics or in the chest - There is no leak in the abdomen, chest or the neck - Previo (more content not included)... Normal [facility] MRA PELVIS WO/W IVCONon 11-0 MRA PELVIS WO/W IVCON * * *Final Report* * * DATE OF EXAM: Jun 21 2021 12:31PM [facility] [id number] - MRA PELVIS WO/W IVCON / PROCEDURE REASON: Vascular malformation * * * * Physician Interpretation * * * * 1. BILATERAL DIRECT INTRANODAL ACCESS AND INJECTION OF GADOLINIUM VIA GROIN LYMPH NODES 2. MRI and MRA/DYNAMIC MR LYMPHANGIOGRAM OF THE CHEST, ABDOMEN AND PELVIS HISTORY: Intermittent left neck swelling and abdominal swelling concerning for central conducting lymphatic abnormality. On the day of the study, however, the patient had no neck or abdominal swelling. BILATERAL DIRECT INTRANODAL ACCESS AND INJECTION OF GADOLINIUM: CONSENT: Risks, benefits, treatment options, potential complications and personnel to be involved were discussed (including the risks of radiation exposure, contrast and anesthesia administration, and any equipment needed for the procedure to ensure best possible outcome) with the patient and all questions were answered and consent was obtained prior to procedure. MEDICATION RECONCILIATION: The patient's medications and allergies were reviewed in the electronic medical record and reconciled to the proposed procedure/treatment. HORTENCIA-PROCEDURE DISCUSSION: The appropriate elements of the pre-procedure discussion, safety check list and sign-out were performed. TIME OUT: A time out was performed immediately prior to procedure start with the nursing, and interventional team, correctly identifying the name, date of , procedure, anatomy (including marking of site and side if applicable), patient position, procedure consent form, relevant diagnostic and radiology test results, antibiotic administration if applicable, safety precautions, and procedure-specific equipment needs. Start of procedure (Time out): 0932 (start of needle placement) End of procedure (Sign out): 1236 (end of needle placement) Patient position: Supine Anesthesia: None Physician Intra-Service time in minutes (first dose of sedation to end of procedure): 0 Local anesthesia: None ANTIBIOTICS: None Antibiotic infusion start time: N/A CONTRAST DOSE: 16 cc of Multihance was injected into the groin lymph nodes. IMAGE GUIDANCE: Fluoroscopic and sonographic guidance was used. Ultrasound demonstrated patency of the target vein without filling defects. Access was obtained under direct sonographic visualization. A sonographic image of the vessel was obtained and placed into the permanent archive for documentation. TECHNIQUE: The patient was prepped and draped using all elements of maximal sterile barrier technique (cap, mask, sterile gown, sterile gloves, a large sterile sheet, hand hygiene and cutaneous antisepsis), sterile ultrasound gel and sterile ultrasound probe covers. Using ultrasound guidance, a lymph node in the left groin was accessed using a 25G needle and tip was positioned in the transitional zone between the cortex and hilum of the lymph node. The needle was connected to extension tubing and a Dotarem contrast in a syringe. Using ultrasound guidance, a lymph node in the right groin was accessed using a 25G needle and tip was positioned in the transitional zone between the cortex and hilum of the lymph node. The needle was connected to extension tubing and a Dotarem contrast in a syringe. Sterile dressings were applied and patient was transferred to MRI for scan. After the MRI, needle was removed and sterile dressings were applied. The patient tolerated the procedure well. There were no significant complications and no other complications during the procedure. CONCLUSION: The patient was comfortable and was transferred to the recovery room in stable condition. Estimated Blood Loss: Minimal Number and Type of Removed Specimens: none ATTENDING RADIOLOGIST: Noe Vieira M.D LINEN CLERK: None The procedure was performed by the: Entire procedure The attending radiologist performed the following procedural activities: Entire procedure MRI and MRA OF THE CHEST ABDOMEN, PELVIS, AND BILATERAL LOWER EXTREMITIES Technique: Siemens Skyra 3.0 [place] MRI scanner. * Axial TrueFISP VIBE * Coronal VIBE * Contrast-enhanced volume sets acquired for three-dimensional MRA reconstructions during hand injection of gadolinium-chelate simultaneously via both lymph nodes (Dotarem total 12 cc) * Post-Parminder axial VIBE, Coronal VIBE During the MRI, the system stopped functioning few times and had to be restarted, thus extending the overall duration of the scan for the patient. RESULT: COMPARISON: 05/14/2020. Lymphatics: - Small 12 x 4 mm focal dilation is seen in the distal thoracic duct in the left supra-clavicular region - The rest of the thoracic duct is normal in appearance and is patent and drains normally. - There are no cystic changes in the right retroperitoneal lymphatics or in the chest - There is no leak in the abdomen, chest or the neck - Previously see (more content not included)... [facility] MARIL[facility] LE[facility]IS ([id number]) 1980 F Date Time Provider Department 05/25/[address] [facility] During your visit today, we recorded the following information about you: Shayy Jordan APRN.CNP 05/25/2021 4:42 PM Signed INTERVENTIONAL RADIOLOGY PATIENT APPOINTMENT REQUEST May 25, 2021 Marilin Lewis [id number] Request: Schedule Requestor: Shayy Jordan APRN.TANK HOUSE OPERATOR HELPER Ref.Physician:Dr. Jacy JUAREZ Physician: Dr. SHAH Procedure/Request: MRI lymphangiogram Reason/ICD Code: Unknown Priority: routine Scheduling Comments: Please schedule this patient for dynamic MR Lymphangiogram with intra-lula contrast injection on a day when I am ?A? staff and Dr Bear is in imaging, consults or somewhere he is not required to scrub in. Does MD need to be present for consult?: N/A IR Procedure Room: MRI Equipment or Vendor Request: No / N/A Anticipated length of procedure (not including prep or Anesthesia): 2 Pre-Procedure Orders: N/A Sedation: None Bed Reservation: No Location of Procedure: [facility] Allergies As of Date: 05/25/2021 Noted Allergy Reaction ULTRAVIST (IOPROMIDE) 10/14/2011 14 - Other: See Comments Comments: PT HAD SLIGHT SNEEZE. STUFFINESS AND CHEST HEAVINESS. WAS GIVEN 50MG IV OF BENADRYL environmental [Other] 03/28/2007 Date Reviewed: 05/14/2021 Reviewed by: Tori Arreola RN - Fully Assessed Reason for Visit: Appointment [186] Prescriptions as of 05/26/2021 - diphenhydrAMINE (BENADRYL) 25 mg capsule Take 2 capsule by mouth as directed one (1) hour prior to IV contrast use. - predniSONE (DELTASONE) 50 mg tab Take 1 tablet by mouth every 6 hours for 3 doses. For prevention of contrast allergy given 13 hrs, 7 hrs and 1 hr prior to IV Contrast. - atorvastatin (LIPITOR) 20 mg tablet - ibuprofen 800 mg tablet Take 800 mg by mouth as needed. Take with food. - albuterol 90 mcg/actuation aero Inhale 2 Puffs as instructed as needed. - fluticasone 50 mcg/actuation nasal spray Use 2 Sprays in each nostril as needed. - oxyCODONE immediate release (ROXICODONE) 5 mg immediate release tablet Take 2.5 mg by mouth as needed. - ALPRAZolam (XANAX) 0.25 mg ORAL tablet Take 1 tablet by mouth once daily as needed for Anxiety. Problem List As Of Date 05/25/2021 Noted Resolved ASTHMA UNSPECIFIED [J45.909] 03/28/2007 ALLERGIC RHINITIS NOS [J30.9] 03/28/2007 ANXIETY STATE NOS [F41.1] 03/28/2007 Lymphatic malformation [Q89.9] 03/19/2018 GERD (gastroesophageal reflux disease) [K21.9] 05/24/2018 Hyperlipidemia [E78.5] 05/24/2018 Encounter Status:Closed by TOBY HOLGUIN on 05/26/21 Normal [facility] MRA ABDOMEN WO/W IVCONon MRA ABDOMEN WO/W IVCON * * *Final Report * * * DATE OF EXAM: May 14 2021 9:35PM QBM 0673 - MRA ABDOMEN WO/W IVCON / PROCEDURE REASON: Vascular malformation * * * * Physician Interpretation * * * * MRA OF THE CHEST, ABDOMEN, AND PELVIS HISTORY: Intermittent left neck swelling TECHNIQUE: After localizing axial and sagittal sequences were obtained, 3-D volumetric acquisition of the chest, abdomen and pelvis was performed before and during the administration of intravenous gadolinium contrast. CONTRAST DOSE: 16 mL of Dotarem injected intravenously. COMPARISON: 04/17/18 MRI neck FINDINGS: The MRA is of excellent technical quality. Heavily T2 weighted images demonstrate abnormal extravascular/extralymphati c fluid in the retroperitoneal space bilaterally extending from the pelvis to the diaphragm. There are prominent lymphatic tissues in the retroperitoneum with mild post contrast enhancement interstitial enhancement. There is a dilated cisterna chyli measuring 1.1 x 2.6 cm with ectatic and tortuous thoracic duct crossing over the spine from the right to left in the lower chest and then coursing into the left supraclavicular region. Non-enhancing 1.7 x 1.1 cm cystic structure in the left neck at the expected site of the lymphovenous confluence appears similar to prior exam but there is now extensive infiltrating edema in the surrounding tissues. Dynamic TWIST imaging of the chest shows no evidence of arteriovenous or venous malformations. There is a trace amount of left pleural fluid. Lungs and heart are otherwise unremarkable. Liver, gallbladder, pancreas, spleen, bilateral adrenal glands, right kidney, and left kidney are unremarkable. Bilateral ovarian follicles/cysts are noted, largest on the right side measuring 3.0 x 1.5 cm. Subserosal anterior uterine wall fibroid is noted measuring 2.8 x 2.6 cm. There are multiple nabothian cysts. 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 Dynamic MR lymphangiography would likely be helpful to further characterize flow rate and direction through the lymphatic system. Night Custodian: MAGALY Transcribe Date/Time: May 17 2021 10:09A Dictated by : JAMI MELGAR MD This examination was interpreted and the report reviewed and electronically signed by: JAMI MELGAR MD on May 17 2021 10:36AM EST [id number] Normal [facility] Non [facility] * * *Final Report* * * DATE OF EXAM: May 14 2021 9:35PM QBM 0762 - MRA CHEST CARDVAS WO/W IVCON / PROCEDURE REASON: Vascular malformation * * * * Physician Interpretation * * * * MRA OF THE CHEST, ABDOMEN, AND PELVIS HISTORY: Intermittent left neck swelling TECHNIQUE: After localizing axial and sagittal sequences were obtained, 3-D volumetric acquisition of the chest, abdomen and pelvis was performed before and during the administration of intravenous gadolinium contrast. CONTRAST DOSE: 16 mL of Dotarem injected intravenously. COMPARISON: 04/17/18 MRI neck FINDINGS: The MRA is of excellent technical quality. Heavily T2 weighted images demonstrate abnormal extravascular/extralymphati c fluid in the retroperitoneal space bilaterally extending from the pelvis to the diaphragm. There are prominent lymphatic tissues in the retroperitoneum with mild post contrast enhancement interstitial enhancement. There is a dilated cisterna chyli measuring 1.1 x 2.6 cm with ectatic and tortuous thoracic duct crossing over the spine from the right to left in the lower chest and then coursing into the left supraclavicular region. Non-enhancing 1.7 x 1.1 cm cystic structure in the left neck at the expected site of the lymphovenous confluence appears similar to prior exam but there is now extensive infiltrating edema in the surrounding tissues. Dynamic TWIST imaging of the chest shows no evidence of arteriovenous or venous malformations. There is a trace amount of left pleural fluid. Lungs and heart are otherwise unremarkable. Liver, gallbladder, pancreas, spleen, bilateral adrenal glands, right kidney, and left kidney are unremarkable. Bilateral ovarian follicles/cysts are noted, largest on the right side measuring 3.0 x 1.5 cm. Subserosal anterior uterine wall fibroid is noted measuring 2.8 x 2.6 cm. There are multiple nabothian cysts. 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 Dynamic MR lymphangiography would likely be helpful to further characterize flow rate and direction through the lymphatic system. Night Custodian: PSCBennett Transcribe Date/Time: May 17 2021 10:09A Dictated by : JAMI MELGAR MD This examination was interpreted and the report reviewed and electronically signed by: JAMI MELGAR MD on May 17 2021 10:36AM EST [id number] Normal [facility] MRA PELVIS WO/W IVCONon 10-0 MRA PELVIS WO/W IVCON * * *Final Report* * * DATE OF EXAM: May 14 2021 9:35PM QBM 0680 - MRA PELVIS WO/W IVCON / PROCEDURE REASON: Vascular malformation * * * * Physician Interpretation * * * * MRA OF THE CHEST, ABDOMEN, AND PELVIS HISTORY: Intermittent left neck swelling TECHNIQUE: After localizing axial and sagittal sequences were obtained, 3-D volumetric acquisition of the chest, abdomen and pelvis was performed before and during the administration of intravenous gadolinium contrast. CONTRAST DOSE: 16 mL of Dotarem injected intravenously. COMPARISON: 04/17/18 MRI neck FINDINGS: The MRA is of excellent technical quality. Heavily T2 weighted images demonstrate abnormal extravascular/extralymphati c fluid in the retroperitoneal space bilaterally extending from the pelvis to the diaphragm. There are prominent lymphatic tissues in the retroperitoneum with mild post contrast enhancement interstitial enhancement. There is a dilated cisterna chyli measuring 1.1 x 2.6 cm with ectatic and tortuous thoracic duct crossing over the spine from the right to left in the lower chest and then coursing into the left supraclavicular region. Non-enhancing 1.7 x 1.1 cm cystic structure in the left neck at the expected site of the lymphovenous confluence appears similar to prior exam but there is now extensive infiltrating edema in the surrounding tissues. Dynamic TWIST imaging of the chest shows no evidence of arteriovenous or venous malformations. There is a trace amount of left pleural fluid. Lungs and heart are otherwise unremarkable. Liver, gallbladder, pancreas, spleen, bilateral adrenal glands, right kidney, and left kidney are unremarkable. Bilateral ovarian follicles/cysts are noted, largest on the right side measuring 3.0 x 1.5 cm. Subserosal anterior uterine wall fibroid is noted measuring 2.8 x 2.6 cm. There are multiple nabothian cysts. 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 Dynamic MR lymphangiography would likely be helpful to further characterize flow rate and direction through the lymphatic system. Night Custodian: MAGALY Transcribe Date/Time: May 17 2021 10:09A Dictated by : JAMI MELGAR MD This examination was interpreted and the report reviewed and electronically signed by: JAMI MELGAR MD on May 17 2021 10:36AM EST [id number] Normal [facility] 04-20-2021 CNPN Telephone (ANGMNQ) MARILIN LEWIS ([id number]) 1980 F Date Time Provider Department 04/20/21 TREVOR SOTO During your visit today, we recorded the following information about you: Trevor Soto PA-C 04/20/2021 5:00 PM Signed Telephone Encounter~ Person of Contact: Patient Reason for Call: Follow up phone call Patient called IR scheduling, stating she is having a flare up. States was to speak with Dr. Melgar/Dr. Burkett if this occurred Attempted to contact patient to discuss next steps, appreciate CT scan tomorrow , ok to proceed with imaging,especially in background of flare up Outcome of Call: NO answer, left message Contact Number Given: Yes Number of minutes: A total of (10) minutes was spent on this encounter Trevor Soto PA-C April 20, 2021 Allergies As of Date: 04/20/2021 Noted Allergy Reaction ULTRAVIST (IOPROMIDE) 10/14/2011 14 - Other: See Comments Comments: PT HAD SLIGHT SNEEZE. STUFFINESS AND CHEST HEAVINESS. WAS GIVEN 50MG IV OF BENADRYL environmental [Other] 03/28/2007 Date Reviewed: 03/24/2021 Reviewed by: Anitra Thornton APRN.TANK HOUSE OPERATOR HELPER - Fully Assessed Reason for Visit: Follow Up [171] Prescriptions as of 04/20/2021 - diphenhydrAMINE (BENADRYL) 25 mg capsule Take 2 capsule by mouth as directed one (1) hour prior to IV contrast use. - predniSONE (DELTASONE) 50 mg tab Take 1 tablet by mouth every 6 hours for 3 doses. For prevention of contrast allergy given 13 hrs, 7 hrs and 1 hr prior to IV Contrast. - atorvastatin (LIPITOR) 20 mg tablet - ibuprofen 800 mg tablet Take 800 mg by mouth as needed. Take with food. - albuterol 90 mcg/actuation aero Inhale 2 Puffs as instructed as needed. - fluticasone 50 mcg/actuation nasal spray Use 2 Sprays in each nostril as needed. - oxyCODONE immediate release (ROXICODONE) 5 mg immediate release tablet Take 2.5 mg by mouth as needed. - ALPRAZolam (XANAX) 0.25 mg ORAL tablet Take 1 tablet by mouth once daily as needed for Anxiety. Problem List As Of Date 04/20/2021 Noted Resolved ASTHMA UNSPECIFIED [J45.909] 03/28/2007 ALLERGIC RHINITIS NOS [J30.9] 03/28/2007 ANXIETY STATE NOS [F41.1] 03/28/2007 Lymphatic malformation [Q89.9] 03/19/2018 GERD (gastroesophageal reflux disease) [K21.9] 05/24/2018 Hyperlipidemia [E78.5] 05/24/2018 Encounter Status:Closed by TREVOR SOTO on 04/20/21 [facility] HISTORY PHYSICALon HISTORY PHYSICAL HNO ID: [id number] Author: Anitra Thornton APRN.ELLIE Service: ? Author Type: Nurse Practitioner Type: HANDP Filed: 03/24/2021 4:34 PM Note Text: INTERVENTIONAL RADIOLOGY SERVICE CONSULT NOTE I spent a total of 60 minutes on the date of the service which included preparing to see the patient, [id number] patient care, completing clinical documentation, obtaining and/or reviewing separately obtained history, performing a medically appropriate examination and counseling and educating the patient/family/caregiver. SERVICE DATE: 03/24/21 SERVICE TIME: 1500 PRIMARY CARE PHYSICIAN: Angy Smith NP IMPRESSION/RECOMMENDATIONS Marilin Lewis is a 41 y/o female with PMH of anxiety, allergic rhinitis, asthma, and appendicitis who presents today in IR to discuss sclerotherapy 2/2 intermittent left supraclavicular swelling. - Plan to discuss with IR team and follow up LUCIO - Will need scripts for prednisone and benadryl d/t contrast allergy for future. - US 03/24/2021 reviewed at bedside - Case discussed with: Dr. Bear SUBJECTIVE HPI: Marilin Lewis is a 41 y/o female with PMH of anxiety, allergic rhinitis, asthma, and appendicitis who presents today in IR to discuss sclerotherapy 2/2 intermittent left supraclavicular swelling. 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 Pt previously consulted by IR in 2018, but unfortunately US evaluation was difficult 2/2 swelling resolving and structure difficult to identify. Pt presents today with abdominal distention, soft, nontender. Left side of neck minimally swollen, per Pt improved greatly overnight. Denies issues with breathing/swallowing. Denies facial or extremity complications. Onset: ~2011 Location: left supraclavicular. In association with abdominal distention/pain and bilateral flank pain. Duration: intermittent, 5 days. (days 2-4 worse pain). In past 3 weeks, Pt reports 6 episodes. Characteristics: left neck swelling, abdominal/flank pain Aggravating factors: unknown Reliving factors: massage, repositioning Treatment: denies, difficulty 2/2 unpredictable flare Pain:6-9/10 with mobility during flare. Sleep: falling asleep is difficult during flare History of Thrombosis: no PERTINENT REVIEW OF SYSTEMS: PAIN ASSESSMENT: 0, day 2 of current flare GENERAL: No weight loss, malaise or fevers NECK: see HPI RESPIRATORY: Negative for cough, hemoptysis, wheezing, COPD, dyspnea or shortness of breath. + smoker, asthma CARDIOVASCULAR: Negative for chest pain, leg swelling, hypertension, CHF or palpitations GI: No nausea, vomiting, or diarrhea : No history of dysuria, frequency or incontinence NEURO: No history of headaches, syncope, paralysis, seizures or tremors PAST MEDICAL HISTORY Diagnosis Date - Allergic rhinitis, cause unspecified - Anxiety state, unspecified 2005 - Appendicitis, unqualified - Unspecified asthma(493.90) 2001 PAST SURGICAL HISTORY Procedure Laterality Date - APPENDECTOMY 2003 - REMOVAL ADENOIDS,PRIMARY,<12 Y/O Adenoidectomy - REMOVAL OF TONSILS,<12 Y/O Tonsillectomy - REPAIR ING HERNIA,<6MO,REDUCIBLE - REPAIR OF NASAL SEPTUM deviated supt 2004 Family History Problem Relation Age of Onset - Allergies Father - Allergies Sister - Alzheimer's Disease Paternal Grandfather - Arthritis Maternal Grandmother - Arthritis Maternal Grandfather - Asthma Sister - Asthma Father - Colon Cancer Maternal Grandfather - Diabetes Maternal Grandmother - Diabetes Maternal Grandfather - Diabetes Sister - Hypertension Maternal Grandfather - Ischemic Heart Disease Maternal Grandfather - Lipids Maternal Grandfather - Prostate Cancer Paternal Grandmother @SOCIALHISTORY@ Current Outpatient Medications Medication Sig Dispense Refill - diphenhydrAMINE (BENADRYL) 25 mg capsule Take 2 capsule by mouth as directed one (1) hour prior to IV contrast use. 2 capsule 3 - predniSONE (DELTASONE) 50 mg tab Take 1 tablet by mouth every 6 hours for 3 doses. For prevention of contrast allergy given 13 hrs, 7 hrs and 1 hr prior to IV Contrast. 3 tablet 3 - atorvastatin (LIPITOR) 20 mg tablet - ibuprofen 800 mg tablet Take 800 mg by mouth as needed. Take with food. - albuterol 90 mcg/actuation aero Inhale 2 Puffs as instructed as needed. - fluticasone 50 mcg/actuation nasal spray Use 2 Sprays in each nostril as needed. - oxyCODONE immediate release (ROXICODONE) 5 mg immediate release tablet Take 2.5 mg by mouth as needed. - ALPRAZolam (XANAX) 0.25 mg ORAL tablet Take 1 tablet by mouth once daily as needed for Anxiety. 15 tablet 0 No current facility-administered medications for this visit. OBJECTIVE PHYSICAL EXAM: GENERAL: Alert, no distress, cooperative NECK: left side minimally swollen LUNGS: Lungs clear to auscultation, Good diaphragmatic excursion CARDIAC: Normal (more content not included)... Normal [facility] HEAD/NECK SOFT TISSUE OTH [place] 03-24-2021 HEAD/NECK SOFT TISSUE OTHER * * *Final Report* * * DATE OF EXAM: Mar 24 2021 3:31PM [facility] [place] HEAD/NECK SOFT TISSUE OTHER / PROCEDURE REASON: Lymphatic malformation * * * * Physician Interpretation * * * * LIMITED SOFT TISSUE ULTRASOUND HISTORY: 41 year female with a history of vascular structure within the left supraclavicular region and unexplained history of periodic swelling of the neck and abdomen always synchronously TECHNIQUE: Targeted sonography of the left supraclavicular subcutaneous tissues was performed. Images were obtained and stored in a permanent archive. RESULT: Within the left supraclavicular region there is a 2.4 x 0.9 cm hypoechoic structure which appears contiguous with the subclavian vein which flows directly through this structure. There appears to be very slow flow within the structure itself however it is unclear if the structure represents a continuation of the vein or a separate cystic structure with low flow simply pushing up against the vein. The manner in which the Doppler flow demonstrates signal seemingly flows through and not into the hypoechoic structure suggests more likely to be the latter. No additional abnormality located in the region of the lesser ventricular neck. The artery appeared normal and separate. Patient at the time of exam did have abdominal swelling however limited evaluation of the left and right lower quadrant didn't demonstrate any ascites to account for study swelling. IMPRESSION: Slow flow hypoechoic 2.4 cm structure which appears to surround but potentially be intrinsically separate from the left subclavian vein. Leading consideration for this structure is some kind of venolymphatic potential related to the thoracic duct versus venous malformation. No identifiable abnormality or fluid within the abdomen on limited evaluation PLAN: Patient will have dedicated MRI of the abdomen and neck at the appropriate time when patient has episode of swelling. Night Custodian: MAGALY Transcribe Date/Time: Mar 29 2021 11:57P Dictated by : Sera BEAR DO This examination was interpreted and the report reviewed and electronically signed by: Sera BEAR DO on Mar 30 2021 12:04AM EST [id number] Normal [facility] Vital Signs Date Time Vital Sign Value Performing Clinician Kira piña 02-21-2025 11:08-0400 Body height 160.[address] Michelle Mcghee MD Work Phone: [facility] 02-21-2025 11:08-0400 Body mass index (BMI) [Ratio] 33.9 kg/m2 Dr. Michelle Mcghee MD Work Phone: [facility] 02-21-2025 11:08-0400 Body temperature 97.8 [degF] Dr. Michelle Mcghee MD Work Phone: [facility] 02-21-2025 11:08-0400 Body weight 86.[address] Michelle Mcghee MD Work Phone: [facility] 02-21-2025 11:08-0400 Diastolic blood pressure 78 mm[Hg] Dr. Michelle Mcghee MD Work Phone: [facility] 02-21-2025 11:08-0400 Heart rate 86 /min Dr. Michelle Mcghee MD Work Phone: [facility] 02-21-2025 11:08-0400 Respiratory rate 16 /min Dr. Michelle Mcghee MD Work Phone: [facility] 02-21-2025 11:08-0400 SaO2% (BldA) [Mass fraction] 95 % Dr. Michelle Mcghee MD Work Phone: [facility] 02-21-2025 11:08-0400 Systolic blood pressure 104 mm[Hg] Dr. Michelle Mcghee MD Work Phone: [facility] 10-09-2023 08:09-0500 Body height 160.[address] Michelle Mcghee Work Phone: [facility] 10-09-2023 08:09-0500 Body mass index (BMI) [Ratio] 30.6 kg/m2 Dr. Michelle Mcghee Work Phone: [facility] 10-09-2023 08:09-0500 Body temperature 97.6 [degF] Dr. Michelle Mcghee Work Phone: [facility] 10-09-2023 08:09-0500 Body weight 78.[address] Michelle Mcghee Work Phone: [facility] 10-09-2023 08:09-0500 Diastolic blood pressure 62 mm[Hg] Dr. Michelle Mcghee Work Phone: [facility] 10-09-2023 08:09-0500 Heart rate 95 /min Dr. Michelle Mcghee Work Phone: [facility] 10-09-2023 08:09-0500 Respiratory rate 16 /min Dr. Michelle Mcghee Work Phone: [facility] 10-09-2023 08:09-0500 SaO2% (BldA) [Mass fraction] 99 % Dr. Michelle Mcghee Work Phone: [facility] 10-09-2023 08:09-0500 Systolic blood pressure 118 mm[Hg] Dr. Michelle Mcghee Work Phone: [facility] 09-12-2023 11:45-0500 Diastolic blood pressure 81 mm[Hg] [facility] 09-12-2023 11:45-0500 Heart rate 69 /min [facility] 09-12-2023 11:45-0500 Respiratory rate 14 /min [facility] 09-12-2023 11:45-0500 SaO2% (BldA) [Mass fraction] 98 % [facility] 09-12-2023 11:45-0500 Systolic blood pressure 114 mm[Hg] [facility] 09-12-2023 08:53-0500 Body height 160.02 cm [facility] 09-12-2023 08:53-0500 Body mass index (BMI) [Ratio] 29.7 kg/m2 [facility] 09-12-2023 08:53-0500 Body temperature 98 [degF] [facility] 09-12-2023 08:53-0500 Body weight 76.2 kg [facility] 01-26-2023 13:04-0400 Body height 160.[address] Michelle Mcghee Work Phone: [facility] 01-26-2023 13:04-0400 Body mass index (BMI) [Ratio] 29.2 kg/m2 Dr. Michelle Mcghee Work Phone: [facility] 01-26-2023 13:04-0400 Body temperature 96.9 [degF] Dr. Michelle Mcghee Work Phone: [facility] 01-26-2023 13:04-0400 Body weight 74.[address] Michelle Mcghee Work Phone: [facility] 01-26-2023 13:04-0400 Diastolic blood pressure 76 mm[Hg] Dr. Michelle Mcghee Work Phone: [facility] 01-26-2023 13:04-0400 Heart rate 78 /min Dr. Michelle Mcghee Work Phone: [facility] 01-26-2023 13:04-0400 Respiratory rate 18 /min Dr. Michelle Mcghee Work Phone: [facility] 01-26-2023 13:04-0400 SaO2% (BldA) [Mass fraction] 98 % Dr. Michelle Mcghee Work Phone: [facility] 01-26-2023 13:04-0400 Systolic blood pressure 114 mm[Hg] Dr. Michelle Mcghee Work Phone: [facility] 01-20-2023 13:16-0400 Body mass index (BMI) [Ratio] 29.5 kg/m2 Dr. Michelle Mcghee Work Phone: [facility] 01-20-2023 13:16-0400 Body temperature 98.4 [degF] Dr. Michelle Mcghee Work Phone: [facility] 01-20-2023 13:16-0400 Body weight 75.[address] Michelle Mcghee Work Phone: [facility] 01-20-2023 13:16-0400 Diastolic blood pressure 97 mm[Hg] Dr. Michelle Mcghee Work Phone: [facility] 01-20-2023 13:16-0400 Heart rate 75 /min Dr. Michelle Mcghee Work Phone: [facility] 01-20-2023 13:16-0400 Respiratory rate 16 /min Dr. Michelle Mcghee Work Phone: [facility] 01-20-2023 13:16-0400 SaO2% (BldA) [Mass fraction] 100 % Dr. Michelle Mcghee Work Phone: [facility] 01-20-2023 13:16-0400 Systolic blood pressure 127 mm[Hg] Dr. Michelle Mcghee Work Phone: [facility] 12-05-2022 13:40-0400 Body mass index (BMI) [Ratio] 29 kg/m2 Dr. Michelle Mcghee Work Phone: [facility] 12-05-2022 13:40-0400 Body temperature 97.6 [degF] Dr. Michelle Mcghee Work Phone: [facility] 12-05-2022 13:40-0400 Body weight 74.[address] Michelle Mcghee Work Phone: [facility] 12-05-2022 13:40-0400 Diastolic blood pressure 78 mm[Hg] Dr. Michelle Mcghee Work Phone: [facility] 12-05-2022 13:40-0400 Heart rate 73 /min Dr. Michelle Mcghee Work Phone: [facility] 12-05-2022 13:40-0400 Respiratory rate 16 /min Dr. Michelle Mcghee Work Phone: [facility] 12-05-2022 13:40-0400 SaO2% (BldA) [Mass fraction] 98 % Dr. Michelle Mcghee Work Phone: [facility] 12-05-2022 13:40-0400 Systolic blood pressure 114 mm[Hg] Dr. Michelle Mcghee Work Phone: [facility] 09-01-2022 15:00-0500 Body temperature 96 [degF] Dr. Michelle Mcghee Work Phone: [facility] 09-01-2022 15:00-0500 Body weight 71.[address] Michelle Mcghee Work Phone: [facility] 09-01-2022 15:00-0500 Diastolic blood pressure 74 mm[Hg] Dr. Mihcelle Mcghee Work Phone: [facility] 09-01-2022 15:00-0500 Heart rate 88 /min Dr. Michelle Mcghee Work Phone: [facility] 09-01-2022 15:00-0500 Respiratory rate 18 /min Dr. Michelle Mcghee Work Phone: [facility] 09-01-2022 15:00-0500 SaO2% (BldA) [Mass fraction] 98 % Dr. Michelle Mcghee Work Phone: [facility] 09-01-2022 15:00-0500 Systolic blood pressure 134 mm[Hg] Dr. Michelle Mcghee Work Phone: [facility] Encounters Encounter Date Encounter Type Care Provider Facility Start: 03-10-2025 ambulatory Michelle Mcghee Facili ty:[facility] Start: 02-27-2025 Encounter for genera l adult medical examination without abnormal findings Michelle Mcghee [facility] Start: 02-21-2025 End: 02-21-[address] Michelle Mcghee MD Work Phone: [facility] Start: 02-21-2025 End: 02-21-[address] Michelle Mcghee MD [facility] Start: 02-21-2025 End: 02-21-[address] Michelle Mcghee MD -[facility] Work Phone: Start: 02-21-2025 End: 02-21-[address] Michelle Mcghee MD [facility] Start: 02-21-2025 End: 02-21-[address] Michelle Mcghee MD Work Phone: -[facility] Start: 02-21-2025 End: 02-21-2025 ambulatory Efewongbe Oleghe Facility:[facility] Start: 09-17-2024 ambulatory Fiona Atanasov Facili ty:[facility] Start: 09-09-2024 ambulatory Efewongbe Frankghe Facili ty:[facility] Start: 09-02-2024 Encounter for other preprocedural examination Juan Diego Franco [facility] Start: 07-31-2024 End: 07-31-2024 ambulatory Efewsalinenobe Oleghe Facility:[facility] Start: 07-29-2024 End: 07-29-2024 ambulatory Efewongbe Oleghe Facility:[facility] Start: 07-10-2024 ambulatory Foina Atanasov Facili ty:[facility] Start: 06-17-2024 End: 06-17-2024 ambulatory Fiona Atanasov Facility:[facility] Start: 06-14-2024 End: 06-14-2024 ambulatory Efewongbe Oleghe Facility:[facility] Start: 05-29-2024 End: 05-29-2024 ambulatory Efewongbe Oleghe Facility:[facility] Start: 05-06-2024 End: 05-06-2024 ambulatory Efewongbe Oleghe Facility:[facility] Start: 04-10-2024 End: 04-10-2024 ambulatory Efewongbe Oleghe Facility:[facility] Start: 03-19-2024 ambulatory Efewongbe Oleghe Facili ty:[facility] Start: 03-08-2024 End: 03-08-2024 ambulatory Efewsalinenobe Oleghe Facility:[facility] Start: 01-31-[address] Jose C Mcghee MD Work Phone: [facility] Start: 10-09-2023 End: 10-09-[address] Michelle Mcghee Work Phone: [facility] Work Phone: Start: 10-09-2023 End: 10-09-[address] Michelle Mcghee Work Phone: [facility] Work Phone: Start: 10-09-2023 End: 10-09-[address] Michelle Mcghee Work Phone: [facility] Work Phone: Start: 09-12-2023 End: 09-12-2023 Emergency department patient visit [facility] Work Phone: Start: 01-26-2023 End: 01-26-[address] Michelle Mcghee Work Phone: [facility] Work Phone: Start: 01-26-2023 End: 01-26-[address] Michelle Mcghee Work Phone: [facility] Start: 01-20-2023 End: 01-20-2023 Emergency department patient visit Dr. Michelle Mcghee Work Phone: [facility] Start: 12-05-2022 End: 12-05-[address] Michelle Mcghee Work Phone: [facility] Start: 11-16-2022 End: 11-16-[address] Michelle Mcghee Work Phone: [facility] Work Phone: Start: 11-16-2022 End: 11-16-[address] Michelle Mcghee Work Phone: [facility]-Outpatient [facility] Start: 09-28-2022 End: 10-03-2022 ambulatory MARTHA COOKALEJANDRO MALIN Facility:[facility] Start: 09-28-2022 End: 10-03-2022 Encounter for gynecological examination (general) (routine) without abnormal findings MARTHA MALIN Facility:[facility] Start: 09-28-2022 End: 10-02-2022 Outreach Lab MARTHA MALIN [facility] Start: 09-01-2022 End: 09-01-[address] Michelle Mcghee Work Phone: [facility] Procedures Date Procedure Procedure Detail Performing Clinician Start: 10-09-2023 Plain X-ray of shoulder Dr. Michelle Mcghee Work Phone: Start: 01-26-2023 X-ray of lumbosacral spine Dr. 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 HELPER Comment on above: 2002 Deviated nasal septu m (disorder) MARTHA PIERCE APRN-TANK HOUSE OPERATOR HELPER Hernia repair MARTHA COOKALEJANDRO MALIN Comment on above: 1978 Tonsillectomy MARTHA MALIN Comment on above: 1973 Plan of Treatment Date Care Activity Detail Author Start: 03-10-2025 MG Breast - bilateral Screening [facility] Start: 02-21-2025 CBC W Auto Different ial panel - Blood [facility] Start: 02-21-2025 Comprehensive metabo lic 2000 panel - Serum or Plasma [facility] Start: 02-21-2025 Lipid 1996 panel - Serum or Plasma [facility] Start: 10-09-2023 Patient referral [facility] Work Phone: Start: 09-12-2023 [facility] Start: 09-01-2022 Patient referral [facility] Work Phone: Alanine aminotransfe rase [Enzymatic activity/volume] in Serum or Plasma [facility] Albumin [Mass/volume ] in Serum or Plasma [facility] Alkaline phosphatase [Enzymatic activity/volume] in Serum or Plasma [facility] Anion gap in Serum or Plasma [facility] Bilirubin, total measurement [facility] BUN/Creatinine ratio [facility] Calcium [Mass/volume ] in Serum or Plasma [facility] Carbon dioxide, tota l [Moles/volume] in Central venous blood [facility] Cholesterol [Mass/vo lume] in Serum or Plasma [facility] Cholesterol in HDL [ Mass/volume] in Serum or Plasma [facility] Creatinine [Mass/vol ume] in Serum or Plasma [facility] Erythrocyte mean cor puscular volume determination [facility] Glucose [Mass/volume ] in Serum or Plasma [facility] Hematocrit [Volume F raction] of Blood [facility] Hemoglobin [Mass/volume] in Blood [facility] Leukocytes [#/volume] in Blood [facility] Low density lipoprot ein cholesterol measurement [facility] Mean corpuscular hem oglobin concentration determination [facility] Mean corpuscular hem oglobin determination [facility] Measurement of renal function [facility] MG Breast - bilateral Screening [facility] Neutrophil count [facility] Neutrophil percent d ifferential count [facility] Patient Education [facility] Work Phone: Patient referral [facility] Work Phone: Platelets [#/volume] in Blood [facility] Potassium measurement [facility] Red blood cell count [facility] Red cell distributio n width determination [facility] Serum chloride measurement [facility] Sodium measurement [facility] Total cholesterol:HD L ratio measurement [facility] Total protein measurement [facility] Triglycerides measurement [facility] Urea nitrogen [Mass/ volume] in Serum or Plasma [facility] VLDL cholesterol measurement [facility] Payers Date Payer Category Payer Self-pay [id number] 2023 Private Health Insurance [id number] 2022 Private Health Insurance [id number] 1980 Unknown [id number] Medicaid MEDICAID [id number] Private Health Insurance [id number] Private Health Insurance C[employer] [id number] Unknown [facility] *DO NOT USE* [id number] Unknown [id number] Unknown [id number] Unknown [id number] Unknown [id number] Unknown [id number] Unknown [id number] Unknown [id number] Unknown [id number] Unknown [id number] Unknown [id number] Unknown [id number] Unknown [id number] Unknown [id number] Unknown [id number] Unknown [id number] [id number] Unknown [id number] Social History Date Type Detail Facility Start: 09-28-2022 End: 07-29-2024 Tobacco smoking status Ex-smoker (finding) [facility] Start: 1980 Sex Assigned At Female [facility] Start: 09-01-2022 End: 10-09-2023 Tobacco smoking status OHIS Unknown if ever smoked [facility] NEGATED: Highlighted row [facility] Mental Status Date Assessment Result Facility 09-12-2023 Cognitive function Level Of Cons ciousness Awake;Alert;Appropriate;Follow s Commands [facility] Work Phone: Clinical Notes 03-19-2021 to 02-21-2025 Note Date & Type Note Facility 02-21-2025 Evaluation note Diagnosis Onset Date Resolution Health care maintenance acute J felicitas 2024 10:13am Asthma chronic February 21 10:13am Generalized anxiety disorder with panic attacks chronic February 21, 2025 10:13am GERD (gastroesophageal reflux disease) chronic February 21, 2025 10:13am [facility] Work Phone: 1(856) 281-356312-18-2024 [facility] Medical Records Department [address] [place] [address] History Physical Exam 07/31/2438 MR#: [id number] Acct: [id number] Name: MARILIN LEWIS Rep #: [id number] : 1980 44 From: Juan Diego Franco DO PCP: Dr. Michelle Mcghee MD Status:REG [facility] Location: [place] [address] HPI - General General Date of Admission: 07/31/24 Date of Service: 07/31/24 Chief Complaint: abdominal pain HPI Narrative MARILIN LEWIS, is a 44 F who presents to the office today for establishment with [facility]. Pt has a PMHx of fatty liver, hiatal hernia, GERD, and asthma. She has been having LUQ epigastric pain for 6 months now. The pain is intermittent and burning in nature. She has an EGD years ago and has been on a PPI since. She notices the pain is worse after eating and nothing relieves it. She still has her gallbladder. She has had no medication changes, diet changes or major life events in the last 6 months. She denies n/v, heartburn, or melena. Pt also has constipation alternating with diarrhea. Last colonoscopy in January 2024 with normal findings and recommendation for repeat in 10 years. She does not take any medications for either constipation or diarrhea. CT abdomen/pelvis from 05/2024 noting a hiatal hernia and fatty liver Colonoscopy 6..24; - The entire examined colon is normal on direct and retroflexion views. - No specimens collected. [facility] Medical History (Updated 07/31/24 @ 06:[address] Adamson Friend, ) Epigastric abdominal pain Contraceptive management Wears glasses Restless legs Shortness of breath on exertion Former smoker Family hx of colon cancer Headache LUQ abdominal pain Colon cancer screening Health care maintenance Left shoulder pain Chronic back pain Acute back pain Generalized anxiety disorder with panic attacks Asthmatic bronchitis with exacerbation History of COVID-19 Alcohol use Anxiety High cholesterol Migraine headache History of hiatal hernia Gastric reflux History of echocardiogram History of stress test Carpal tunnel syndrome Seasonal allergies Asthma GERD (gastroesophageal reflux disease) Home Medications ???Medication ???Instructions ???Recorded ???Last Taken ???Type levonorgestrel (Mirena) 1 insert intrauterine ONCE bc 01/02/18 07/30/24 History fluticasone propionate 50 1 spray intranasal DAILY #16 grams 07/19/21 07/30/24 Rx mcg/actuation nasal spray,suspension (Flonase Allergy Relief) hydroxyzine HCl 25 mg tablet 25 mg PO TID PRN anxiety #90 tabs 12/05/22 Unknown Rx omeprazole 40 mg capsule,delayed 40 mg PO QDAY GERD #90 caps 01/31/24 07/31/24 Rx release levalbuterol tartrate 45 2 puff inhalation Q4-6H PRN 05/06/24 Unknown Rx mcg/actuation aerosol inhaler shortness of breath or wheezing 3 months #15 grams sertraline 50 mg tablet (Zoloft) 50 mg PO DAILY #90 tabs 07/17/24 07/30/24 Rx Allergy/AdvReac Type Severity Reaction Status Date / Time Iodinated Contrast Media Allergy Shortness Verified 07/29/24 15:07 of breath Opioids - Morphine Analogues AdvReac Severe Vomiting Verified 07/29/24 15:07 (narcotics) Family History Father COPD (chronic obstructive pulmonary disease) Anxiety Asthma Mother Obesity Sister Asthma Diabetes Grandmother Hypertension Heart disease Grandfather Colon cancer Cancer prostate and lukemia Surgical History History of carpal tunnel surgery of right wrist Hx of colonoscopy Hx of inguinal hernia repair History of carpal tunnel surgery of left wrist History of appendectomy History of nasal septoplasty History of tonsillectomy Social History household members: spouse and children number of children: 4 current occupational status: employed current occupation: [employer] sexually active: Yes Smoking Status: Former smoker alcohol intake: current alcohol intake frequency: holidays/special occasions only Alcohol type: wine substance use type: does not use eating out: other details: twice a month what type of physical activity do you participate in: other details: does yard work and house work seatbelt use: always do you feel safe at home: Yes Vital Signs Vital Signs Vital Signs: 07/31/24 06:30 07/31/24 06:30 Temperature 98.0 F Temperature Source Temporal Pulse Rate 76 Respiratory Rate 18 Respiratory Pattern Normal Blood Pressure 123/83 H Blood Pressure Mean 96 Blood Pressure Source Monitor Blood Pressure Position Sitting Blood Pressure Location Right Arm Pulse Ox 99 Oxygen Delivery Method Room Air Weight Weight: 187 lb 6.287 oz Body Mass Index (BMI) 33.2 (more content not included)...[facility]01-30-2024 Discharge summary Author James Cortes [facility] September 12, 2023 10:58am Note Date/Time September 12, 2023 9 :38am [facility] Medical Records Department [address] [place] [address] Emergency Department Summary 09/12/23 MR#: [id number] Acct: [id number] Name: MARILIN LEWIS Rep #:[id number] : 1980 43 From: James Cortes MD PCP: Dr. Michelle Mcghee MD Status:R EG ER Location: ED HPI History of Present Illness Chief Complaint: Dizziness Informant: patient Onset/Context/Timing Onset: Today (2-3 hours ago) Context: Sudden Onset Timing: Continuous Quality: Like I am spinning Location: Head Current Severity: Moderate Maximum Severity: Severe Worsened by: Any head movement Relieved by: Remaining still Associated Symptoms Associated Symptoms: Nausea, otherwise none Narrative Narrative: Patient had acute onset of vertigo upon lifting her head off of the pillow when she woke up this morning, worse when she got up out of bed, worse when she turnsher head or moves. Denies any numbness, tingling, weakness in extremities, trouble speaking, headache, earache, tinnitus. Never had this before. She had COVID about 3 weeks ago, did not have ear symptoms with it or an ear infection. No recent head trauma. No fevers or chills this morning or other acute symptoms. She has not vomited but feels like she is going to. PFSH PFSH Medical History Acute back pain Alcohol use Anxiety Asthma Asthmatic bronchitis with exacerbation Carpal tunnel syndrome Chronic back pain Gastric reflux Generalized anxiety disorder with panic attacks GERD (gastroesophageal reflux disease) High cholesterol History of COVID-19 History of echocardiogram History of hiatal hernia History of irregular heartbeat History of stress test Migraine headache Seasonal allergies Smoker Home Medications alprazolam 0.25 mg tablet (Xanax) 0.25 mg PO BID-TID PRN Anxiety 01/02/18 [History Last Taken 03/02/21 06:30 0.25 MG] levonorgestrel 21 mcg/24 hours (8 yrs) 52 mg intrauterine device (Mirena) 1 insert intrauterine ONCE bc 01/02/18 [History Last Taken Unknown] fluticasone propionate 50 mcg/actuation nasal spray,suspension (Flonase Allergy Relief) 1 spray intranasal DAILY #16 grams 07/19/21 [Rx Last Taken Unknown] hydroxyzine HCl 25 mg tablet 25 mg PO TID PRN anxiety #90 tabs 12/05/22 [Rx Last Taken Unknown] albuterol sulfate 90 mcg/actuation aerosol inhaler 2 puff inhalation Q6H PRN shortness of breath or wheezing #8.5 grams 12/19/22 [Rx Last Taken Unknown] omeprazole 20 mg capsule,delayed release 20 mg PO QDAY GERD #90 caps 12/19/22 [Rx Last Taken Unknown] sertraline 50 mg tablet (Zoloft) 50 mg PO DAILY #90 tabs 12/19/22 [Rx Last Taken Unknown] meloxicam 15 mg tablet 15 mg PO DAILY PRN pain #20 tabs 01/20/23 [Rx Last Taken Unknown] atorvastatin 40 mg tablet 40 mg PO QDAY cholesterol #90 tabs 01/27/23 [Rx Last Taken Unknown] lorazepam 0.5 mg tablet 0.5 mg PO TID PRN dizziness or vertigo #10 tabs 09/12/23[Rx Last Taken Unknown] meclizine 25 mg tablet 25 mg PO Q8H PRN PRN Dizziness #20 tabs 09/12/23 [Rx Last Taken Unknown] Allergy/AdvReac Type Severity Reaction Status Date / Time Iodinated Contrast Media Allergy Shortness Verified 09/12/23 08:53 of breath Opioids - Morphine Analogues AdvReac Severe Vomiting Verified 09/12/23 08:53 [narcotics] Family History Father COPD (chronic obstructive pulmonary disease) Anxiety Asthma Mother Obesity Sister Asthma Diabetes Grandmother Hypertension Heart disease Grandfather Colon cancer Cancer prostate and lukemia Surgical History History of appendectomy History of carpal tunnel surgery of left wrist History of nasal septoplasty History of tonsillectomy Hx of inguinal hernia repair Social History Smoking Status: Current every day smoker tobacco type: cigarettes alcohol intake: current alcohol intake frequency: holidays/special occasions only Alcohol type: wine substance use type: does not use eating out: other details: twice a month what type of physical activity do you participate in: other details: does yard work and house work ROS ROS ED Constitutional Constitutional ED: Denies chills or fever(s) Eyes Eyes: Denies change in vision or diplopia ENT ENT ED: Reports vertigo; Denies ear discharge, ear pain, rhinorrhea or sore throat Cardiovascular Cardiovascular: Denies chest pain or palpitations Respiratory/Chest Respiratory/Chest: Denies cough or dyspnea Gastrointestinal Gastrointestinal: Reports nausea; Denies abdominal pain, diarrhea or vomiting Genitourinary Genitourinary ED: Denies dysuria or hematuria Musculoskeletal Musculoskeletal: Denies back pain or neck pain Integumentary Denies abscess or rash Neurologic Neurologic: Denies headache(s), paresthesias or weakness Psychiatric Psychiatric: Denies anxiety or suicidal thoughts EXAM Physical Exam Const Vital Signs: 09/12/23 08:53 09/12/23 09:32 09/12/23 09:32 Temperature 98 F Temperature Source Temporal Pulse Rate 75 67 Respiratory Rate 14 16 Respiratory Effort Normal Non-Labored Respiratory Pattern Normal Blood Pressure 130/90 H 132/91 H Blood Pressure Mean 103 104 Pulse Ox 98 98 Oxygen Delivery Method Room Air Room Air 09/12/23 10:41 Temperature Temperature Source Pulse Rate 72 Respiratory Rate 14 Respiratory Effort Respiratory Pattern Blood Pressure 116/81 H Blood Pressure Mean 92 Pulse Ox 94 Oxygen Delivery Method Room Air Positive well nourished and well developed General Appearance ED: well developed and NAD HEENT Reports TM's clear and moist mucous membranes HEENT Narrative: EAC normal bilaterally. normocephalic and atraumatic Tympanic Membrane ED: Yes TM's clear Eyes PERRL and EOMs intact bilaterally Eyes Narrative: Patient has what appears to be nonfatigable horizontal nystagmus to the left, it is less prominent to the right, there is no vertical or rotatory nystagmus. Neck full ROM and supple Resp normal respiratory effort and clear to auscultation bilaterally Cardio regular rate, regular rhythm and no murmurs GI non-tender and non-distended Auscultation: normoactive bowel sounds Palpation: soft Back/Spine no CVA tenderness General Back: other FROM Extremity normal to inspection General Extremety ED: Negative for edema, pulses abnormal or tenderness General Extremity: Negative for edema or pulses abnormal Neuro oriented x3, CN's II-XII intact bilaterally and no sensory deficits noted Neuro Narrative: Normal lvdbfh-ep-rmni and mvpd-ho-wlak bilaterally. Normal speech. NIHSS 0. Patient has an abnormal jolt test. Sensorium / Orientation: awake and alert Motor Exam: strength 5/5 throughout Psych mental status grossly normal Skin no rashes or lesions noted and no wounds MDM MDM MDM Narrative Medical decision making narrative: Patient very symptomatic with a normal blood pressure not wanting to move her head due to symptoms. With an abnormal jolt test on the history, this is all very consistent with peripheral vertigo and I do not think she needs any advanced imaging of the brain although was considered and discussed with the patient. Also do not think that blood tests are going to help. This is clearly vertigo. She was fairly symptomatic especially with jolt testing. She was given oral Zofran, Ativan, meclizine and observed. She is not able to tolerate Lamar maneuver or [place]- Hallpike, nor did she want to try when she was feeling better understandably. Differential includes labyrinthitis as well as BPPV, this is not likely to be central in etiology and not likely to be an intracranial mass. Patient feeling much better after the medications. Will prescribe her meclizine and some Ativan to use only if the symptoms get more severe and she needs it, she is comfortable with that plan and outpatient follow-up advised. Discharge Plan Triage Chief Complaint: Dizziness ED Provider: James Cortes Dx/Rx/DC Orders Clinical Impression: Peripheral vertigo, unspecified Instructions: ED BPV Vertigo, ED Labyrinthitis Prescriptions: New meclizine [meclizine] 25 mg tablet 25 mg PO Q8H PRN PRN (Reason: Dizziness) Qty: 20 0RF lorazepam [lorazepam] 0.5 mg tablet 0.5 mg PO TID PRN (Reason: dizziness or vertigo) Qty: 10 0RF No Action alprazolam [Xanax] 0.25 mg tablet 0.25 mg PO BID-TID PRN (Reason: Anxiety) levonorgestrel [Mirena] 20 mcg/24 hr (5 years) intrauterine device 1 insert Intrauterine ONCE fluticasone propionate [Flonase Allergy Relief] 50 mcg/actuation spray,suspension 1 spray intranasal DAILY Qty: 16 0RF Rx Instructions: administer into each nostril hydroxyzine HCl 25 mg tablet 25 mg PO TID PRN (Reason: anxiety) Qty: 90 3RF meloxicam 15 mg tablet 15 mg PO DAILY PRN (Reason: pain) Qty: 20 0RF albuterol sulfate 90 mcg/actuation HFA aerosol inhaler 2 puff inhalation Q6H PRN (Reason: shortness of breath or wheezing) Qty: 8.5 2RF omeprazole 20 mg capsule,delayed release(DR/EC) 20 mg PO QDAY Qty: 90 3RF sertraline [Zoloft] 50 mg tablet 50 mg PO DAILY Qty: 90 2RF atorvastatin 40 mg tablet 40 mg PO QDAY Qty: 90 2RF Primary Care Provider: Michelle Mcghee Referrals: Manpreet Rene MD [Med Staff - Active Staff] - 1 Week if not improving Michelle Mcghee MD [Primary Care Provider] - Disposition Disposition: Home, Self Care What to do if you have Problems For any increased pain, shortness of breath, bleeding, nausea or vomiting, chestpain, or any unexpected problems, contact your Primary Care Provider. Call [facility] ([phone]) or report to the closest Emergency Room. Call 911 if necessary. 09/12/23 1058 <Electronically signed by James Cortes MD> Cosigner Signature (if applicable): CC: Dr. Michelle Mcghee MD ~ Signed [facility] Work Phone: [phone] 178-287502-16-2023 Note. MICRO - Microbiology PROCEDURE: Affirm Pathogens DNA [...] Locations *1: This test was performed at: [facility], [address] [place] [address], [place], [address]- , [facility]09-28-2022 Evaluation + Plan note Future Scheduled Tests Laboratory* Pathology [place] Request 09/28/22 Radiology* MA Mammo Screening Bilateral w/ Patrick 09/28/22 [facility] 11-08-2021 NoteHNO ID: [id number] Author: RT Jennifer(R) Service: Radiology Author Type: Technologist Type: Progress Notes Filed: 06/21/2021 10:42 AM Note Text: Radiology Service Progress Note PATIENT NAME: Marilin Lewis DATE OF SERVICE: June 21, 2021 TIME: [...] BY: RT Jennifer(R) June 21, 2021 10:41 [facility]10-01-2021 NoteHNO ID: [id number] Author: Toir Arreola RN Service: ? Author Type: Registered [...] Intact SIGNATURE: Tori Arreola RN PATIENT NAME: Marilni Lewis DATE: May 14, 2021 TIME: 6:12 [facility]10-01-2021 NoteHNO ID: [id number] Author: RT Tricia(R) Service: Radiology Author Type: Technologist Type: Progress Notes Filed: 05/14/2021 8:53 PM Note Text: Radiology Service Progress Note PATIENT NAME: Marilin Lewis DATE OF SERVICE: May 14, 2021 TIME: [...] BY: RT Tricia(R) May 14, 2021 8:52 [facility]08-11-2021 NoteHNO ID: [id number] Author: RT Michael(R) Service: ? Author Type: Grill Chef Type: Progress Notes Filed: 03/24/2021 3:34 PM Note Text: Radiology Service Progress Note PATIENT NAME: Marilin Lewis DATE OF SERVICE: March 24, 2021 TIME: [...] PERIPHERAL IV DATA: Not applicable SIGNED BY: Devyn Torres RT(R) March 24, 2021 3:34 [facility]08-06-2021 NoteHNO ID: [id number] Author: Lucretia Schwartz PA-C Service: ? Author Type: Physician Sap Basis Architect Type: Progress Notes Filed: 03/19/2021 8:20 AM [facility] On[facility] Date Resolution Status Asthma chronic Generalized anxiety disorder with panic attacks chronic GERD (gastroesophageal reflux disease) chronic Tobacco abuse [facility] Work Phone: Evaluation note* Diagnosis Onset Date Resolution Status Acute back pain acute Generalized anxiety disorder with panic attacks chronic Tobacco abuse chronic Chronic back pain chronic Hyperlipidemia chronic [facility] Work Phone: Evaluation noteNo assessment information available [facility] Work Phone: Evaluation note* Diagnosis Onset Date Resolution Status Generalized anxiety disorder with panic attacks chronic Hyperlipidemia chronic Left shoulder pain [facility] Work Phone: Hospital course Narrative No data available for this section [facility] Hospital Discharge instructions No data available for this section [facility] Hospital Discharge instructionsAmbulatory Orders* Dermatology Location: None Selected [facility] Work Phone: Progress note No data available for this section [facility] Summary Purpose Family History No Family History Records Found Relationship Condition Age at Onset Recorded Date/T ceasar father Chronic obstructive pulmonary disease Unk nown Anxiety Unknown Asthma Unknown mother Obesity Unknown sister Asthma Unknown Diabetes mellitus Unknown grandmother Hypertension Unknown Cardiac disease Unknown grandfather Malignant neoplasm of colon Unknown Malignant neoplasm Unknown Advance Directives No Advanced Directives Records Found Advance Directive Response Recorded Date/ Time Living Will No September 14 1:32pm Power of Workers' Compensation Magistrate No September 14, 2021 1:32pm Advance Directive Response Recorded Date/ Time Living Will No January 20, 2023 3 :02pm Power of Workers' Compensation Magistrate No January 20, 2023 3:02pm Advance Directive Response Recorded Date/ Time Living Will No September 12 9:32am Power of Workers' Compensation Magistrate No September 12, 2023 9:32am Chief Complaint and Reason for Visit Chief Complaint Increased Anxiety SCREENING Reason for Visit Asthma Generalized anxiety disorder with panic attacks GERD (gastroesophageal reflux disease) Tobacco abuse Chief Complaint SCREENING 3 M FU ABD PAIN hurt back EORDER Reason for Visit Acute back pain Generalized anxiety disorder with panic attacks Tobacco abuse Chronic back pain Hyperlipidemia Chief Complaint DIZZINESS Chief Complaint DIZZINESS MED FOLLOW UP SHOULDER PAIN Reason for Visit Generalized anxiety disorder with panic attacks Hyperlipidemia Left shoulder pain Chief Complaint Admit Date MED FU February 21, 2025 10:1 3am Reason for Visit Admit Date Health care maintenance February 21, 2025 10:13am Asthma February 21, 2025 10:1 3am Generalized anxiety disorder with panic attacks February 21, 2025 10:13am GERD (gastroesophageal reflux disease) J felicitas 2024 10:13am Additional Source Comments INFORMATION SOURCE (unrecogn ized section and content) DATE CREATED AUTHOR 09/18/2021 [facility] DATE CREATED AUTHOR AUTHOR'S ORGANIZ ATION 10/07/2022 [facility] ([place]) DATE CREATED AUTHOR AUTHOR'S ORGANIZ ATION 03/02/2025 [facility] Care Team (unrecognized sect ion and content) Care Team Personnel Name: PHYSICIAN, NONE Position: Physician Member Role: Primary Care Physician Care Team Related Persons Name: JUN LEWIS Care Teams (unrecognized sec tion and content) Team Status: Active Member Role Status Dates Dr. Michelle Mcghee MD Family Provider Active Dr. Michelle Mcghee MD Primary Care Provider Active Team Status: Inactive Member Role Status Dates Dr. Michelle Mcghee MD Primary Care P tyshawn, Attending Provider, Referring Provider Active Team Status: Inactive Member Role Status Dates Dr. Michelle Mcghee MD Primary Care Provider, Atten ding Provider Active Team Status: Inactive Member Role Status Dates Dr. Michelle Mcghee MD Primary Care Provider Active MARTHA KARI Attending Provider Active Team Status: Inactive Member Role Status Dates Dr. Michelle Mcghee MD Primary Care Provider Active Dr. Jun Wong DO Attending Provider, Emergency Demetris villagran Active Team Status: Inactive Member Role Status Dates Dr. Michelle Mcghee MD Primary Care Provider Active Dr. James Cortes MD Emergency Provider Active Team Status: Inactive Member Role Status Dates Dr. Michelle Mcghee MD Primary Care Provider Active Dr. James Cortes MD Attending Provider, Emergency Provider Active Team Status: Active Member Role/Relationship Status Dates Dr. Michelle Mcghee MD Primary Care Provider Active Team Status: Inactive Member Role/Relationship Status Dates Dr. Michelle Mcghee MD Primary Care Provider Active Start: February 21, 2025 End: February 21, 2025 Dr. Michelle Mcghee MD Attending Provider Active Start: February 21, 2025 End: February 21, 2025 Dr. Michelle Mcghee MD Referring Provider Active Start: February 21, 2025 End: February 21, 2025 Team Status: Active Member Role/Relationship Status Dates Dr. Michelle Mcghee MD Primary Care Provider Active Start: February 21, 2025 Dr. Michelle Mcghee MD Attending Provider Active Start: February 21, 2025 Dr. Michelle Mcghee MD Referring Provider Active Start: February 21, 2025 Team Status: Inactive Member Role/Relationship Status Dates Dr. Michelle Mcghee MD Primary Care Provider Active Start: February 21, 2025 End: February 21, 2025 Dr. Michelle Mcghee MD Attending Provider Active Start: February 21, 2025 End: February 21, 2025 Dr. Michelle Mcghee MD Referring Provider Active Start: February 21, 2025 End: February 21, 2025 Goals (unrecognized section and content) Goals may be documented in a n alternate section FOR RECORDS PERTAINING TO PATIENTS WHO ARE [...] BE BASED ON THE PRIMARY CLINICAL RECORDS. [facility]. provides no warranty or guarantee of the accuracy or completeness of information in this document.
== END | disposition home or self-care (01) ==
LOC: OPBI 14:54
PROVIDERS: PCP Internal Medicine; Referring Provider Internal Medicine; Visit Provider Internal Medicine
DX: Z12.31 Encounter for screening mammogram for malignant neoplasm of breast (principal)
CPT/HCPCS: 77063; 77067